=== PATIENT | male | born 1955 | race Caucasian/White ===

== ENCOUNTER 2016-08-31 12:47 | Inpatient (IN) | payer MEDICAID ==
[2016-08-31] MEDS ORDERED: ONDANSETRON DISINTEGRATING 4 MG TAB PO ONE (13:14)
[2016-08-31] MEDS ORDERED: ONDANSETRON 4 MG/2 ML VIAL ONE (13:19)
[2016-08-31] MEDS ORDERED: HYDROmorphONE/DILAUDID 1 MG/ML SYR IVP ONE (13:34)
[2016-08-31 13:38] LABS: % IMMATURE GRANULYOCYTES 0.3 % (0.0-1.1); ABSOLUTE IMMATURE GRANULOCYTES 0.04 10^3/uL (0.00-0.10); ADD DIFF? NO; ADD MORPH? NO; ADD SCAN? NO; ATYPICAL LYMPHOCYTE FLAG 0 (0-99); FRAGMENT RBC FLAG 0 (0-99); HEMATOCRIT 48.3 % (40.0-51.0); HEMOGLOBIN 17.7 g/dL (13.7-17.5); LEFT SHIFT FLG 0 (0-99); LIPEMIA HEMOLYSIS FLAG 90 (0-99); MEAN CELL HEMOGLOBIN CONCENTR. 36.6 g/dL (32.4-36.7); MEAN CELL VOLUME 89.9 fL (81.5-99.8); MEAN PLATELET VOLUME 9.7 fL (8.7-11.7); PLATELET CLUMPS FLAG 0 (0-99); PLATELET COUNT 256 10^3/uL (150-400); RED BLOOD CELL COUNT 5.37 10^6/uL (4.40-6.38); RED CELL DISTRIBUTION WIDTH 12.3 % (11.5-15.2)
[2016-08-31] MEDS ORDERED: HALOPERIDOL LACT 5 MG/ML INJ IVP ONE (13:40)
--- NOTE | 2016-08-31 13:40 | EDPHY ---
HPI/HX/ROS/PE/MDM Narrative: CHIEF COMPLAINT: Chronic abdominal pain, vomiting HPI: The patient is a 61 y/o male, with a history of diverticulitis and chronic abdominal pain, complaining of abdominal pain and vomiting onset around 7:00 this morning, 6.5 hours ago. He has been seen here several times in the last year for the same complaint. His last admission was in March 2016 and they were unable to determine the etiology of his pain. He was seen most recently in the ED on 07/13/16 for the same complaints. His symptoms today feel exactly the same. His pain is localized to his epigastrium. No fever, hematemesis, bloody stools. No anticoagulants. REVIEW OF SYSTEMS: Aside from elements discussed in the HPI, a comprehensive 10-point review of systems was reviewed and is negative. PMH: Diverticulitis, chronic abdominal pain, hepatitis, depression, hepatic hemangioma, suspected thigh lipoma, colon polyps, hypertension SOCIAL HISTORY: smokes marijuana Reviewed prior medical records including ED visit 07/13/16 for abdominal pain and admission 04/02/16 for abdominal pain. PHYSICAL EXAM: General:Patient is alert, in mild distress. ENT:Eyes are normal to inspection. ENT inspection normal. Neck: Normal inspection. Full range of motion. Respiratory:No respiratory distress. Breath sounds normal bilaterally. Hyperventilating. Cardiovascular: Regular rate and rhythm. Strong peripheral pulses. Normal cap refill. Abdomen:The abdomen has mild epigastric tenderness to palpation. There are no peritoneal signs. There are normal bowel sounds. Back: Normal to inspection. No tenderness to palpation. Skin: Normal color. No rash. Warm and dry. Extremities: Normal appearance. Full range of motion. Neuro: Oriented x3. Normal motor function. Normal sensory function. (Celso Zamora) ED Course: IV established. Labs drawn including CBC, CHEM, lipase. 1L IV NS, 4mg IV Zofran , 1mg IV Dilaudid, and 5mg IV Haldol administered. On re-evaluation at 3:00 p.m., the patient feels much better and he is asleep. I have signed the patient out to Dr. Ignacio pending re-evaluation and likely discharge home. The patient has had multiple CT scans of the abdomen for similar symptoms and I do not think this is indicated currently. (Celso Zmaora) Care assumed by me pending improvement in symptoms. 1814 Pt still not tolerating fluids and pain is returning. I have discussed with Dr. Saenz, Hospitalist. She will admit for further care and evaluation. ( Po Ignacio) - Data Points Laboratory Results: Laboratory Results 08/31/16 13:28 08/31/16 13:28 08/31/16 13:28 WBC 12.42 H 10^3/uL (3.80-9.50) RBC 5.37 10^6/uL (4.40-6.38) Hgb 17.7 H g/dL (13.7-17.5) Hct 48.3 % (40.0-51.0) MCV 89.9 fL (81.5-99.8) MCH 33.0 pg (27.9-34.1) MCHC 36.6 g/dL (32.4-36.7) RDW 12.3 % (11.5-15.2) Plt Count 256 10^3/uL (150-400) MPV 9.7 fL (8.7-11.7) Neut % (Auto) 89.9 H % (39.3-74.2) Lymph % (Auto) 4.4 L % (15.0-45.0) [place] % (Auto) 5.2 % (4.5-13.0) Eos % (Auto) 0.0 L % (0.6-7.6) Baso % (Auto) 0.2 L % (0.3-1.7) Nucleat RBC Rel Count 0.0 % (0.0-0.2) Absolute Neuts (auto) 11.15 H 10^3/uL (1.70-6.50) Absolute Lymphs (auto) 0.55 L 10^3/uL (1.00-3.00) Absolute Monos (auto) 0.65 10^3/uL (0.30-0.80) Absolute Eos (auto) 0.00 L 10^3/uL (0.03-0.40) Absolute Basos (auto) 0.03 10^3/uL (0.02-0.10) Absolute Nucleated RBC 0.00 10^3/uL (0-0.01) Immature Gran % 0.3 % (0.0-1.1) Immature Gran # 0.04 10^3/uL (0.00-0.10) Sodium 144 mEq/L (134-144) Potassium 3.4 L mEq/L (3.5-5.2) Chloride 105 mEq/L (97-110) Carbon Dioxide 18 L mEq/l (22-31) Anion Gap 21 mEq/L (8-16) BUN 13 mg/dL (7-23) Creatinine 1.0 mg/dL (0.7-1.3) Estimated GFR > 60 Glucose 159 H mg/dL (70-100) Calcium 9.5 mg/dL (8.5-10.4) Lipase 37.0 IU/L (23-300) Medications Given: Discontinued Medications Haloperidol Lactate (Haldol Injection) 5 mg IVP EDNOW ONE Stop: 08/31/16 13:41 Last Admin: 08/31/16 14:00 Dose: 5 mg Hydromorphone HCl (Dilaudid) 1 mg IVP EDNOW ONE Stop: 08/31/16 13:35 Last Admin: 08/31/16 13:42 Dose: 1 mg Sodium Chloride (Ns) 1,000 mls @ 0 mls/hr IV ONCE ONE PRN Reason: Wide Open Stop: 08/31/16 13:44 Last Admin: 08/31/16 13:54 Dose: 1,000 mls Sodium Chloride (Ns) 1,000 mls @ 0 mls/hr IV ONCE ONE PRN Reason: Wide Open Stop: 08/31/16 14:56 Last Admin: 08/31/16 14:55 Dose: 1,000 mls Ondansetron HCl (Zofran Odt) 4 mg PO EDNOW ONE Stop: 08/31/16 13:15 Last Admin: 08/31/16 13:43 Dose: Not Given Ondansetron HCl (Zofran) 4 mg IVP EDNOW ONE Stop: 08/31/16 13:43 Last Admin: 08/31/16 13:42 Dose: 4 mg General Time Seen by Provider: 08/31/16 13:22 Initial Vital Signs: Initial Vital Signs Temperature (C) 36.6 C 08/31/16 12:48 Heart Rate 86 08/31/16 12:48 Respiratory Rate 26 H 08/31/16 12:48 Blood Pressure 169/114 H 08/31/16 12:48 O2 Sat (%) 99 08/31/16 12:48 O2 Delivery Mode Room Air O2 (L/minute) 2 Allergies/Adverse Reactions: Penicillins Allergy (Verified 07/13/16 09:07) Rash Home Medications: Medication Instructions Recorded FLUoxetine [Prozac 10 MG (*)] 30 mg PO DAILY #90 cap 04/08/16 Departure - Departure Disposition: [facility] Inpatient Acute Clinical Impression: Chronic abdominal pain Cyclic vomiting syndrome Qualifiers: Qualifier Code: (G43.A0) Cyclical vomiting, not intractable Condition: Fair Report Scribed for: Celso Zamora Report Scribed by: Monique Griffin Date of Report: 08/31/16 Time of Report: 13:24 Physician Review and Approval Statement: Portions of this note were transcribed by an ED scribe. I personally performed the history, physical exam, and medical decision making; and confirm the accuracy of the information in the transcribed note.
[2016-08-31] MEDS ORDERED: ONDANSETRON 4 MG/2 ML VIAL IVP ONE (13:42)
[2016-08-31] MEDS ORDERED: NS 1,000 ML IV ONE ×3 (13:43→23:28)
[2016-08-31 13:54] LABS: ANION GAP 21 mEq/L (8-16); CALCIUM 9.5 mg/dL (8.5-10.4); CARBON DIOXIDE 18 mEq/l (22-31); CHLORIDE 105 mEq/L (97-110); GLOMERULAR FILTRATION RATE > 60; GLUCOSE 159 mg/dL (70-100); POTASSIUM 3.4 mEq/L (3.5-5.2); SODIUM 144 mEq/L (134-144)
[2016-08-31] MEDS ORDERED: ACETAMINOPHEN 325 MG TAB PO PRN (19:26)
[2016-08-31] MEDS ORDERED: HYDROmorphONE/DILAUDID 1 MG/ML SYR IVP PRN (19:26)
[2016-08-31] MEDS ORDERED: PROMETHAZINE HCL 25 MG/ML INJ IVP PRN (19:26)
[2016-08-31] MEDS ORDERED: PROTOCOL POTASSIUM 1 DOSE MISC PRN (19:27)
[2016-08-31] MEDS ORDERED: IOPAMIDOL (ISOVUE-300) 100 ML BTL IV ONE (19:33)
--- NOTE | 2016-08-31 20:08 | GHP ---
[f rep st] HISTORY AND PHYSICAL DATE OF ADMISSION: 08/31/2016 CHIEF COMPLAINT: Abdominal pain. HISTORY OF PRESENT ILLNESS: The patient is a 61-year-old male who has had chronic abdominal pain for quite some time. The last time he was seen in the emergency room, his CT scan showed some mild dive rticulitis and he was discharged with antibiotics. He has also had multiple other ER visits and admi ssions where his abdominal CT scan was unremarkable. He now re-presents to the hospital with worseni ng abdominal pain. He has 2 separate pains, 1 of them is in his epigastric region, and the other 1 i s in the left lower quadrant. He continuously called both of these pains his "diverticulitis pains." He says he has had this pain for about a year. It got much worse today. It does not radiate. He has no diarrhea or constipation. He has had some weight loss over the years. Each episode of pain c omes and goes over a period of seconds in waves. He also complains of changes in his urination. He is losing control of his urine and having incontinence issues. He has a very dramatic urge to urinat e and sometimes does not make it in time. He denies any dysuria. He feels like his bladder issues a nd his diverticulitis issues are all connected. He has been so distressed over this worsening abdomi nal pain that he quit smoking marijuana about 3 weeks ago, but prior to that he was a daily user. He had an EGD and colonoscopy done as an inpatient here in March 2016, and it showed only colon polyps which were biopsied. PAST MEDICAL HISTORY: 1. Hypertension. 2. Diverticulitis. 3. Chronic abdominal pain. 4. Depression. PAST SURGICAL HISTORY: Knee surgery. MEDICATIONS: Please see computer record for full detailed list. ALLERGIES: Penicillin. SOCIAL HISTORY: No smoking. No alcohol. Previous daily marijuana user, now off marijuana for the l ast 2-3 weeks. He is homeless. Lives out of his car. REVIEW OF SYSTEMS: Complete review of systems obtained. Review of systems is negative constitutiona l, HEENT, GI, pulmonary, cardiovascular, , hematology, skin, musculoskeletal, endocrine, and psych, except for positives and pertinent negatives which are listed as under HPI. FAMILY HISTORY: Reviewed and noncontributory to presenting complaint. PHYSICAL EXAMINATION: GENERAL: Well-developed, well-nourished male, in no acute distress. VITAL SI GNS: Temperature is 36.7, pulse 73, blood pressure 89/62, satting 94% on room air. EYES: Normal co njunctivae. Pupils equal, react to light. ENT: Normal ears and nose. Hearing intact. Normal teet h. Oropharynx moist. NECK: Trachea midline. No thyromegaly. CHEST: Normal effort. LUNGS: Norma r to auscultation bilaterally. CARDIOVASCULAR: Regular rhythm. No murmur. No lower extremity tuyet a. ABDOMEN: Soft. Mild left lower quadrant tenderness to palpation. No hepatosplenomegaly. SKIN: Warm, dry, intact, without rash. MUSCULOSKELETAL: No cyanosis or clubbing. Strength 5/5 upper an d lower extremities. NEUROLOGIC: Cranial nerves intact. Normal sensation to light touch. PSYCHIATR IC: Alert and oriented x3. Normal affect. Normal judgment and insight. Normal memory. LABORATORY DATA: White count 12.42, hematocrit 48.3, platelets 256. Sodium 144, potassium 3.4, chlo ride 105, bicarb 18, BUN 13, creatinine 1.0, glucose 159. Lipase is 37. MEDICAL RECORDS REVIEW: I summarized findings under HPI. Multiple admissions and ER visits for abdo li pain. Most recently, however, in July he was diagnosed with diverticulitis and started on antibiotics. ASSESSMENT/PLAN: 1. Yqkns-dd-uwoytee abdominal pain. He has been observed in the emergency room for over 6 hours and has failed to improve, so is now being admitted for persistence of symptoms. Although he has multip le negative CT scans in the past, his most recent 1 in July did show evidence of diverticulitis w hich was treated with antibiotics. Despite this antibiotic treatment, his abdominal pain continues t o worsen. He also has leukocytosis. I do feel that we are obliged to check CT scan yet again to kirill e sure there is no further complication of this episode of diverticulitis. He is requiring IV Dilaud id for pain control, this will be continued. 2. Urinary urge incontinence and urinary difficulties. This sounds like he may have developed some benign prostatic hypertrophy. We will check bladder scan for urinary retention and a urinalysis. We will start him on Flomax. ADMISSION STATUS: We will admit to observation, as he might be able go home tomorrow if workup is ne gative. DVT PROPHYLAXIS: He is [id number] risk. We will place him on subcu Lovenox. CODE STATUS: Full. /[id number]/MODL
--- NOTE | 2016-08-31 20:44 | CT ---
CT Scan of the Abdomen and Pelvis (With Contrast) August 31, 2016 at 1948 Hours History: Epigastric and left lower quadrant pain, previous history of diverticulitis. Comparison: CTs from February 2012 and July 2016. Technique: Axial computed tomographic images of the abdomen and pelvis were obtained with the unevent ful intravenous administration of 90 mL Isovue-300 contrast. No oral or rectal contrast which limits the study. Dose reduction techniques were utilized. CT Abdomen Findings Lung bases: Linear atelectasis in the right lower lobe. Liver: Multiple probable hepatic hemangiomas again noted. Biliary system: No obstruction. Spleen: Normal. Pancreas: Normal. Adrenals: Normal. Kidneys: No obstruction or solid masses. 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 Abdominal aorta: Moderate atherosclerotic calcification of the abdominal aorta without aneurysm. No bowel obstruction, ascites, or significant retroperitoneal lymphadenopathy. CT Pelvis Findings: Diffuse diverticulosis coli without evidence of definite diverticulitis. Previous inflammatory changes of the descending colon are no longer visualized. No focal fluid collection or pneumoperitoneum, although limited due to lack of oral contrast. Anterolateral to the right hip, there is a fat density mass measuring 6.6 x 4.4 cm, which in 2012 valentino sured 5.3 x 3.2 cm, image 73 of series 3 with few septations within it. Degenerative disk disease in the lumbar spine, especially at L3-L4 with disk space narrowing and osteophytes. Impressions: 1. Diverticulosis coli without definite evidence of diverticulitis, bowel obstruction, pneumoperitone um, or drainable abscess. 2. Probable hepatic hemangiomata without ascites or splenomegaly. 3. Atherosclerotic aorta without aneurysm. 4. Malrotated right kidney. No urinary tract obstruction. 5. Anterolateral to the right hip in the subcutaneous fat, there is a mixed fat density lesion which has increased in size slowly since 2011, currently measuring 6.6 x 4.4 cm, which may represent a lipo ma or low-grade liposarcoma. Recommend surgical consult for excisional biopsy. Findings and recommendations discussed with Dr. Brandy Saenz at 2015 hours today.
[2016-08-31 20:46] LABS: POTASSIUM 4.2 mEq/L (3.5-5.2)
[2016-08-31] MEDS: oxyCODONE IR 5 MG TAB PO PRN (21:01)
[2016-08-31] MEDS: NS 1,000 ML IV SCH (21:01)
[2016-08-31] MEDS: ONDANSETRON 4 MG/2 ML VIAL IVP PRN (21:01)
[2016-08-31] MEDS: PANTOPRAZOLE SODIUM 40 MG in NS 100 ML IV SCH (21:12)
[2016-08-31 23:44] LABS: COLOR YELLOW; LEUKOCYTE ESTERASE,URINE NEGATIVE (NEGATIVE); NITRITE,URINE NEGATIVE (NEGATIVE)
[2016-09-01 04:57] LABS: ADD DIFF? NO; ADD MORPH? NO; ADD SCAN? NO; ATYPICAL LYMPHOCYTE FLAG 0 (0-99); FRAGMENT RBC FLAG 0 (0-99); HEMATOCRIT 36.2 % (40.0-51.0); HEMOGLOBIN 12.6 g/dL (13.7-17.5); LEFT SHIFT FLG 10 (0-99); LIPEMIA HEMOLYSIS FLAG 90 (0-99); MEAN CELL HEMOGLOBIN 33.2 pg (27.9-34.1); MEAN CELL HEMOGLOBIN CONCENTR. 34.8 g/dL (32.4-36.7); MEAN CELL VOLUME 95.5 fL (81.5-99.8); MEAN PLATELET VOLUME 9.7 fL (8.7-11.7); PLATELET CLUMPS FLAG 10 (0-99); PLATELET COUNT 165 10^3/uL (150-400); RED BLOOD CELL COUNT 3.79 10^6/uL (4.40-6.38); RED CELL DISTRIBUTION WIDTH 13.4 % (11.5-15.2)
[2016-09-01 05:16] LABS: ALANINE AMINOTRANSFERASE 25 IU/L (21-72); ALBUMIN 2.9 g/dL (3.5-5.0); ALKALINE PHOSPHATASE 54 IU/L (38-126); ANION GAP 5 mEq/L (8-16); ASPARTATE AMINOTRANSFERASE 14 IU/L (17-59); BILIRUBIN,TOTAL 0.8 mg/dL (0.1-1.4); BILIRUBIN-CONJUGATED 0.6 mg/dL (0.0-0.5); BILIRUBIN-UNCONJUGATED 0.2 mg/dL (0.0-1.1); CALCIUM 7.6 mg/dL (8.5-10.4); CARBON DIOXIDE 22 mEq/l (22-31); CHLORIDE 113 mEq/L (97-110); CREATININE 0.9 mg/dL (0.7-1.3); GLOMERULAR FILTRATION RATE > 60; GLUCOSE 91 mg/dL (70-100); POTASSIUM 3.8 mEq/L (3.5-5.2); SODIUM 140 mEq/L (134-144); TOTAL PROTEIN 5.2 g/dL (6.3-8.2)
[2016-09-01] MEDS: PANTOPRAZOLE SODIUM 40 MG in NS 100 ML IV SCH (08:47)
[2016-09-01] MEDS: TAMSULOSIN HCL 0.4 MG CAP PO SCH (08:48)
[2016-09-01] MEDS: ENOXAPARIN 40 MG/0.4 ML SYR SC SCH (08:48)
[2016-09-01] MEDS: NS 1,000 ML IV SCH ×2 (08:57→18:56)
[2016-09-01] MEDS ORDERED: ENOXAPARIN 40 MG/0.4 ML SYR SC SCH (09:00)
--- NOTE | 2016-09-01 09:59 | SOAPPROG ---
[facility] Progress Note Assessment/Plan: Assessment: 61yo male admitted for ab pain, also with right hip mass of 2 years reports ab pain improved, tolerating regular diet PE Right hip mass apprx 6x8cm, soft movable, nontender to palpation. Plan: long discussion with pt, surgery recommends removal of right hip mass, went over expected recovery, risks/benefits etc pt unsure what he would like to do. Also offered that he can follow-up in office and have done at later date although recommend sooner rather than later, within 60 days. surgery could possibly be done Thursday, likely . if pt decides not to do during this admission then ok to d/c from surgical perspective with outpt f/u 09/01/16 09:56 Objective: Vital Signs Temp Pulse Resp BP Pulse Ox 37.0 C 64 16 94/59 L 97 09/01/16 08:00 09/01/16 08:00 09/01/16 08:00 09/01/16 08:00 09/01/16 08:00 Laboratory Results 09/01/16 04:37 09/01/16 04:37 08/31/16 09/01/16 09/02/16 05:59 05:59 05:59 Intake Total 3570 282 Output Total 300 150 Balance 3270 132 ICD10 Worksheet Patient Problems: Problems Problem Status Diagnosed Chronic abdominal pain Acute Cyclic vomiting syndrome Acute Abdominal pain Acute Dehydration Acute Nausea & vomiting Acute Sigmoid diverticulitis Acute
[2016-09-01] MEDS: ONDANSETRON 4 MG/2 ML VIAL IVP PRN (11:12)
[2016-09-01] MEDS: oxyCODONE IR 5 MG TAB PO PRN (11:13)
[2016-09-01] MEDS ORDERED: POTASSIUM CL 10 MEQ TAB PO ONE ×3 (13:34→20:27)
--- NOTE | 2016-09-01 16:05 | HOSPPROG ---
Hospitalist Progress Note Assessment/Plan: 61-year-old male presents emergency room complaints abdominal pain. This is my 1st encounter with the patient, chart reviewed. # mid epigastric abdominal pain Etiology unclear CT scan negative Labs within normal limits Ultrasound ordered Patient made NPO Continue supportive management # urinary urgency Chronic problem for the patient # right hip mixed fat density per CT scan Appreciate consult from surgery Patient considering removal # hypotension Patient asymptomatic Continue fluids # leukocytosis Acute response improved # disposition Patient will be transitioned to inpatient status He requires further evaluation in the hospital setting given his acute abdominal pain He is unable to tolerate a regular diet this time Ultrasound ordered Continue further workup during this hospital course Consider GI consult Subjective: Still having mid epigastric pain. No other specific issues. No other pain identified. Objective: Vital Signs Temp Pulse Resp BP Pulse Ox 37.1 C 63 14 89/52 L 97 09/01/16 12:00 09/01/16 12:00 09/01/16 12:00 09/01/16 12:00 09/01/16 12:00 Laboratory Results 09/01/16 04:37 09/01/16 04:37 08/31/16 09/01/16 09/02/16 05:59 05:59 05:59 Intake Total 3570 282 Output Total 300 150 Balance 3270 132 - Physical Exam Constitutional: no apparent distress, appears nourished, uncomfortable Eyes: PERRL, anicteric sclera, EOMI Ears, Nose, Mouth, Throat: moist mucous membranes, hearing normal, ears appear normal Cardiovascular: regular rate and rhythym, No JVD, No edema Respiratory: no respiratory distress, no rales or rhonchi, reduced air movement Gastrointestinal: tenderness, No ascites, No guarding Skin: warm, normal color, No erythema Musculoskeletal: normal joint ROM, no joint effusions, generalized weakness Neurologic: AAOx3 Psychiatric: interacting appropriately, not encephalopathic, thought process linear, anxious ICD10 Worksheet Patient Problems: Problems Problem Status Diagnosed Chronic abdominal pain Acute Cyclic vomiting syndrome Acute Abdominal pain Acute Dehydration Acute Nausea & vomiting Acute Sigmoid diverticulitis Acute
--- NOTE | 2016-09-01 17:18 | US ---
Limited abdominal ultrasound INDICATION: Abdominal pain. History of diverticulitis. Probable multiple hemangiomas in the liver. COMPARISON: CT scan of the abdomen and pelvis of August 31, 2016. TECHNIQUE: Right upper quadrant ultrasound was performed. FINDINGS: The abdominal aorta is normal at 2 cm in the mid section, 1.6 cm distally. It is without si gnificant atherosclerosis. Pancreas is normal without peripancreatic fluid. Echotexture is normal. The liver measures 16.2 cm. At the upper dome of the right hepatic lobe, an echogenic lesion of 2 x 1 .6 x 1.5 cm has imaging characteristics consistent with a hemangioma by ultrasound criteria. In the m id right lobe, a smaller lesion of 1.3 x 1.2 x 1.2 cm also looks like a hemangioma. There are 2 small er cysts in the left lobe, the largest at 1 x 1 x 0.6 cm. This is overall anechoic without color Dopp ler flow. No evidence for hemangiomas in the left hepatic lobe. Liver contour is normal. Portal vein is patent. Gallbladder is well visualized, normal, without stone s or sludge. Gallbladder wall measures 2 mm. Common duct measures 7 mm. Right kidney measures 11.7 x 4.8 x 4.8 cm. Cortex measures 1.3 cm. No hydronephrosis. No perinephric fluid collection. IMPRESSION: 1. Liver cysts and hemangiomas in the left and right hepatic lobes respectively. 2. Otherwise normal right upper quadrant ultrasound.
[2016-09-01 20:13] LABS: POTASSIUM 3.7 mEq/L (3.5-5.2)
[2016-09-02] MEDS: NS 1,000 ML IV SCH ×2 (04:51→23:13)
[2016-09-02 06:11] LABS: POTASSIUM 3.8 mEq/L (3.5-5.2)
[2016-09-02] MEDS ORDERED: POTASSIUM CL 10 MEQ TAB PO ONE ×3 (06:19→23:02)
[2016-09-02 06:34] LABS: CORTISOL-AM 18.5 ug/dL (4.5-22.7)
[2016-09-02] MEDS: ENOXAPARIN 40 MG/0.4 ML SYR SC SCH (08:24)
[2016-09-02] MEDS: PANTOPRAZOLE SODIUM 40 MG in NS 100 ML IV SCH (08:24)
[2016-09-02] MEDS: TAMSULOSIN HCL 0.4 MG CAP PO SCH (08:24)
--- NOTE | 2016-09-02 13:16 | SOAPPROG ---
SOAP Progress Note Assessment/Plan: Assessment/Plan: 61 Y M admitted c abdominal pain. R anterior thigh mass. To OR tomorrow for resection of R thigh mass. Risks and options discussed c the patient and he requests to proceed. Consent in chart. Hold chemical ppx. Ppx abx ordered. NPO p midnight. 09/02/16 13:13 Subjective: wants to remove this mass. getting larger. doesn't hurt much. Objective: Vital Signs Temp Pulse Resp BP Pulse Ox 36.8 C 76 16 141/94 H 94 09/02/16 11:25 09/02/16 11:25 09/02/16 11:25 09/02/16 11:25 09/02/16 11:25 Laboratory Results 09/02/16 04:36 09/01/16 09/02/16 09/03/16 05:59 05:59 05:59 Intake Total 3398 225 Output Total 1810 300 Balance 1588 -75 alert, nad resting comfortably no wob R thigh soft ovoid/rounded mass ~15x18 cm, does not seem to involve muscle ICD10 Worksheet Patient Problems: Problems Problem Status Diagnosed Chronic abdominal pain Acute Cyclic vomiting syndrome Acute Abdominal pain Acute Dehydration Acute Nausea & vomiting Acute Sigmoid diverticulitis Acute
--- NOTE | 2016-09-02 14:50 | HOSPPROG ---
Hospitalist Progress Note Assessment/Plan: 61-year-old male presents emergency room complaints abdominal pain. # mid epigastric abdominal pain Etiology unclear CT scan negative Labs within normal limits Ultrasound negative Patient refusing EGD Patient made NPO after midnight Clear liquid diet today Continue supportive management # urinary urgency Chronic problem for the patient # right hip mixed fat density per CT scan Appreciate consult from surgery To OR in the a.m. # hypotension Patient asymptomatic Continue fluids Resolved # leukocytosis Acute response improved # disposition Patient will be transitioned to inpatient status He requires further evaluation in the hospital setting given his acute abdominal pain and surgical intervention Tolerating clear liquid Continue further workup during this hospital course Consider GI consult Subjective: Still having mild abdominal pain. Does not want EGD at this time. Once surgical resection of his mass on his thigh. Objective: Vital Signs Temp Pulse Resp BP Pulse Ox 36.8 C 76 16 141/94 H 94 09/02/16 11:25 09/02/16 11:25 09/02/16 11:25 09/02/16 11:25 09/02/16 11:25 Laboratory Results 09/02/16 04:36 09/01/16 09/02/16 09/03/16 05:59 05:59 05:59 Intake Total 3398 625 Output Total 1810 1900 Balance 1588 -1275 - Physical Exam Constitutional: no apparent distress, appears nourished, chronically ill appearing Eyes: PERRL, anicteric sclera, EOMI Ears, Nose, Mouth, Throat: moist mucous membranes, hearing normal, ears appear normal Cardiovascular: No JVD, No edema Respiratory: no respiratory distress, reduced air movement Gastrointestinal: No tenderness, No ascites Skin: warm, normal color Musculoskeletal: no joint effusions, generalized weakness Neurologic: AAOx3 Psychiatric: not anxious, not encephalopathic, poor insight, poor judgement ICD10 Worksheet Patient Problems: Problems Problem Status Diagnosed Chronic abdominal pain Acute Cyclic vomiting syndrome Acute Abdominal pain Acute Dehydration Acute Nausea & vomiting Acute Sigmoid diverticulitis Acute
[2016-09-02 18:27] LABS: POTASSIUM 3.3 mEq/L (3.5-5.2)
[2016-09-03 05:07] LABS: POTASSIUM 3.7 mEq/L (3.5-5.2)
[2016-09-03] MEDS: NS 1,000 ML IV SCH (05:10)
[2016-09-03] MEDS ORDERED: ERTAPENEM 1 GM in NS 100 ML IV ONE (06:00)
[2016-09-03] MEDS: PANTOPRAZOLE SODIUM 40 MG in NS 100 ML IV SCH (09:23)
[2016-09-03] MEDS: TAMSULOSIN HCL 0.4 MG CAP PO SCH ×2 (09:31→16:40)
--- NOTE | 2016-09-03 09:43 | SOAPPROG ---
SOAP Progress Note Assessment/Plan: Assessment: 61yo male admitted for ab pain, also with right hip mass of 2 years reports ab pain improved, tolerating regular diet PE Right hip mass apprx 6x8cm, soft movable, nontender to palpation. Plan: long discussion with pt, surgery recommends removal of right hip mass, went over expected recovery, risks/benefits etc pt unsure what he would like to do. Also offered that he can follow-up in office and have done at later date although recommend sooner rather than later, within 60 days. surgery could possibly be done Thursday, likely . if pt decides not to do during this admission then ok to d/c from surgical perspective with outpt f/u 09/01/16 09:56 09/03/16 09:42 discussed surgery with patient, explained it could be extensive, pt signed consent. discussed case with Sushma Arango of medicine, ok to go home late today of surgery not extensive, will contact her for d/c. ok to eat regular diet post-op per medicine. Objective: Vital Signs Temp Pulse Resp BP Pulse Ox 36.9 C 72 17 148/100 H 94 09/03/16 08:12 09/03/16 08:12 09/03/16 08:12 09/03/16 08:12 09/03/16 08:12 Laboratory Results 09/03/16 04:40 09/02/16 09/03/16 09/04/16 05:59 05:59 05:59 Intake Total 3398 3025 Output Total 1810 3450 200 Balance 1588 -425 -200 ICD10 Worksheet Patient Problems: Problems Problem Status Diagnosed Chronic abdominal pain Acute Cyclic vomiting syndrome Acute Abdominal pain Acute Dehydration Acute Nausea & vomiting Acute Sigmoid diverticulitis Acute
[2016-09-03] MEDS ORDERED: BUPIVACAINE 0.5% 30 ML SDV ONE (11:50)
[2016-09-03] MEDS ORDERED: MIDAZOLAM 2 MG/2 ML VIAL ONE (12:25)
[2016-09-03] MEDS ORDERED: PROPOFOL 200 MG/20 ML VIAL ONE (12:35)
[2016-09-03] MEDS ORDERED: LIDOCAINE 2% 5 ML SDV ONE (12:36)
[2016-09-03] MEDS ORDERED: HYDROmorphONE/DILAUDID 2 MG/ML SYR ONE (12:36)
[2016-09-03] MEDS ORDERED: ROCURONIUM 50 MG/5 ML VIAL ONE (12:39)
[2016-09-03] MEDS ORDERED: THROMBIN (RECOMBINANT) 20,000 UNIT SPRAY TP ONE (13:36)
[2016-09-03] MEDS ORDERED: epHEDrine SULFATE 10 MG/ML SYR ONE (13:51)
[2016-09-03] MEDS ORDERED: KETOROLAC 30 MG/1 ML SDV ONE (13:53)
[2016-09-03] MEDS ORDERED: SUGAMMADEX SODIUM 200 MG/2 ML VIAL IVP ONE (13:53)
[2016-09-03] MEDS ORDERED: PHENYLEPHRINE HCL 100 MCG/ML SYR ONE (13:54)
[2016-09-03] MEDS ORDERED: DEXAMETHASONE 4 MG/ML VIAL ONE ×2 (13:54)
[2016-09-03] MEDS ORDERED: ONDANSETRON 4 MG/2 ML VIAL ONE (13:55)
--- NOTE | 2016-09-03 14:09 | POSTOPPROG ---
Post Op Note Date of Operation: 09/03/16 Surgeon: José Miguel Wagner Fireworks Inspector: alexys galvan Anesthesiologist: nory Anesthesia: GET(General Endotracheal) Pre-op Diagnosis: right hip mass Post-op Diagnosis: same Indication: right hip mass Procedure: right hip mass excision Findings: right hip mass, under muscle likley TFL Inf/Abcess present in the surg proc area at time of surgery?: No Depth: Deep Incisional (Fascial) EBL: 50-100 Drains: Carmelo Pereyra (2 masses from right hip mass)
[2016-09-03] MEDS ORDERED: fentaNYL 100 MCG/2 ML INJ ONE (14:15)
[2016-09-03] MEDS ORDERED: HYDROmorphONE/DILAUDID 1 MG/ML SYR ONE (14:41)
--- NOTE | 2016-09-03 14:54 | HOSPPROG ---
Hospitalist Progress Note Assessment/Plan: 61-year-old male presents emergency room complaints abdominal pain. Reviewed with Prashant Penn of surgery. # mid epigastric abdominal pain Etiology unclear CT scan negative Labs within normal limits Ultrasound negative Patient refusing EGD Advanced diet Patient states abdominal pain is resolved and feels fine today # urinary urgency Chronic problem for the patient # right hip mixed fat density per CT scan Appreciate consult from surgery To OR today Postoperative care needs to be determined # hypotension Patient asymptomatic Continue fluids Resolved # leukocytosis Acute response improved # disposition To OR today Discharge plan on clear pending surgical intervention General regular diet plan unclear reviewed with protective services case worker Patient may consider fdc facility rehabilitation Subjective: Abdomen pain resolved. Would like to eat regular food. Awaiting surgical intervention. Objective: Vital Signs Temp Pulse Resp BP Pulse Ox 36.9 C 72 17 150/107 H 94 09/03/16 08:12 09/03/16 08:12 09/03/16 08:12 09/03/16 10:26 09/03/16 08:12 Laboratory Results 09/03/16 04:40 09/02/16 09/03/16 09/04/16 05:59 05:59 05:59 Intake Total 3398 3025 Output Total 1810 3450 200 Balance 1588 -425 -200 - Physical Exam Constitutional: no apparent distress, appears nourished, not in pain Eyes: PERRL, anicteric sclera, EOMI Ears, Nose, Mouth, Throat: moist mucous membranes, hearing normal, ears appear normal Cardiovascular: regular rate and rhythym, No JVD, No edema Respiratory: no respiratory distress, no rales or rhonchi, reduced air movement Gastrointestinal: normoactive bowel sounds, No tenderness, No ascites Skin: warm, normal color, No erythema Musculoskeletal: full muscle strength, normal joint ROM, no joint effusions Neurologic: AAOx3 Psychiatric: not anxious, not encephalopathic, thought process linear, agitated ICD10 Worksheet Patient Problems: Problems Problem Status Diagnosed Chronic abdominal pain Acute Cyclic vomiting syndrome Acute Abdominal pain Acute Dehydration Acute Nausea & vomiting Acute Sigmoid diverticulitis Acute
[2016-09-03] MEDS ORDERED: POTASSIUM CL 10 MEQ TAB PO ONE (15:48)
--- NOTE | 2016-09-03 16:09 | SOAPPROG ---
SOAP Progress Note Assessment/Plan: Assessment: 61yo male admitted for ab pain, also with right hip mass of 2 years reports ab pain improved, tolerating regular diet PE Right hip mass apprx 6x8cm, soft movable, nontender to palpation. Plan: long discussion with pt, surgery recommends removal of right hip mass, went over expected recovery, risks/benefits etc pt unsure what he would like to do. Also offered that he can follow-up in office and have done at later date although recommend sooner rather than later, within 60 days. surgery could possibly be done Thursday, likely . if pt decides not to do during this admission then ok to d/c from surgical perspective with outpt f/u 09/01/16 09:56 09/03/16 09:42 discussed surgery with patient, explained it could be extensive, pt signed consent. discussed case with Sushma Arango of medicine, ok to go home late today of surgery not extensive, will contact her for d/c. ok to eat regular diet post-op per medicine. 09/03/16 16:09 surgery somewhat extensive, keep pt overnight. Objective: Vital Signs Temp Pulse Resp BP Pulse Ox 36.5 C 95 14 121/85 H 93 09/03/16 15:36 09/03/16 15:36 09/03/16 15:36 09/03/16 15:36 09/03/16 15:36 Laboratory Results 09/03/16 04:40 09/02/16 09/03/16 09/04/16 05:59 05:59 05:59 Intake Total 3395 3025 1560 Output Total 1810 3450 260 Balance 1588 -425 1300 ICD10 Worksheet Patient Problems: Problems Problem Status Diagnosed Chronic abdominal pain Acute Cyclic vomiting syndrome Acute Abdominal pain Acute Dehydration Acute Nausea & vomiting Acute Sigmoid diverticulitis Acute
[2016-09-03] MEDS: HYDROCODONE/APAP 5/325 TAB PO PRN ×2 (16:40→23:41)
[2016-09-03 19:31] LABS: POTASSIUM 4.1 mEq/L (3.5-5.2)
[2016-09-03] MEDS: KETOROLAC 30 MG/1 ML SDV IVP PRN (20:47)
[2016-09-04] MEDS: HYDROCODONE/APAP 5/325 TAB PO PRN ×2 (05:05→20:14)
[2016-09-04 05:38] LABS: POTASSIUM 4.2 mEq/L (3.5-5.2)
--- NOTE | 2016-09-04 08:44 | SOAPPROG ---
SOAP Progress Note Assessment/Plan: Assessment: 61yo male admitted for ab pain, also with right hip mass s/p excision 09/03/16 Dr Wagner, path pending wants to stay today although pt reports "pain not that bad" and has not tried to ambulate yet. Drain 120 out PE awake alert comfortable Right leg bandage dry, drain with serosag drainage, thigh soft to palpation, no difficulty moving right leg and normal sensation to touch over thigh. Plan encouraged ambulation explained to pt f/u and fact he could leave today if ambulates well. if still here tomorrow will try to remove drain before D/C as I am worried pt could be lost to F/U 09/04/16 08:35 09/04/16 08:45 Objective: Vital Signs Temp Pulse Resp BP Pulse Ox 36.6 C 56 L 16 96/62 L 96 09/04/16 08:00 09/04/16 08:00 09/04/16 08:00 09/04/16 08:00 09/04/16 08:00 Laboratory Results 09/04/16 04:37 09/03/16 09/04/16 09/05/16 05:59 05:59 05:59 Intake Total 3025 2310 Output Total 3450 600 Balance -425 1710 ICD10 Worksheet Patient Problems: Problems Problem Status Diagnosed Chronic abdominal pain Acute Cyclic vomiting syndrome Acute Abdominal pain Acute Dehydration Acute Nausea & vomiting Acute Sigmoid diverticulitis Acute
[2016-09-04] MEDS: oxyCODONE IR 5 MG TAB PO PRN ×4 (08:45→21:28)
--- NOTE | 2016-09-04 08:45 | HOSPPROG ---
Hospitalist Progress Note Assessment/Plan: patient is a 61-year-old male with chronic abdominal pain. On his last emergency room visit his CT scan showed some mild diverticulitis and he was discharged with antibiotics. Today is my 1st encounter with the patient. Chart reviewed. # mid epigastric abdominal pain * CT scan shows no clear etiology * suspect this may be stress related * will do a trial of Reglan. Patient also feels constipated will add bowel protocol. * Ultrasound negative * on PPI * trial of k pad * He was able to eat oatmeal this morning # urinary urgency * Chronic problem for the patient # right hip mixed fat density per CT scan * Status post right hip mass excision # hypotension * blood pressure is 88/57 this morning * Patient appears clinically dry. Will give him a fluid bolus and continue IV fluids # leukocytosis * Acute response # homelessness * patient has been living in his car /Van * he has a daughter in the [place] area who would be okay for him to live with her * in addition he has a friend in the local area who he might be able to stay with * case management getting involved # disposition * has a RUSSELL drain in his right thigh area. Hopefully if his blood pressure improves he can be discharged in the next day or so. Subjective: Celso is feeling tired. Continues to have vague abdominal pain. Objective: Vital Signs Temp Pulse Resp BP Pulse Ox 36.6 C 56 L 16 96/62 L 96 09/04/16 08:00 09/04/16 08:00 09/04/16 08:00 09/04/16 08:00 09/04/16 08:00 Laboratory Results 09/04/16 04:37 09/03/16 09/04/16 09/05/16 05:59 05:59 05:59 Intake Total 3025 2310 Output Total 3450 600 Balance -425 1710 - Physical Exam Constitutional: uncomfortable Eyes: PERRL Ears, Nose, Mouth, Throat: hearing normal Cardiovascular: regular rate and rhythym Respiratory: no respiratory distress Gastrointestinal: normoactive bowel sounds, tenderness ( In the epigastric area ) Skin: warm Neurologic: AAOx3 Psychiatric: interacting appropriately, flat affect ICD10 Worksheet Patient Problems: Problems Problem Status Diagnosed Chronic abdominal pain Acute Cyclic vomiting syndrome Acute Abdominal pain Acute Dehydration Acute Nausea & vomiting Acute Sigmoid diverticulitis Acute
[2016-09-04] MEDS: TAMSULOSIN HCL 0.4 MG CAP PO SCH (08:46)
[2016-09-04] MEDS: ONDANSETRON DISINTEGRATING 4 MG TAB PO PRN (08:47)
[2016-09-04] MEDS: PANTOPRAZOLE SODIUM 40 MG in NS 100 ML IV SCH (08:48)
[2016-09-04] MEDS ORDERED: LACTULOSE 20 GM/30 ML UDCUP PO PRN (09:02)
[2016-09-04] MEDS ORDERED: MAGNESIUM HYDROXIDE 30 ML UDCUP PO PRN (09:02)
[2016-09-04] MEDS ORDERED: BISACODYL 10 MG SUPP PR PRN (09:02)
[2016-09-04] MEDS: KETOROLAC 30 MG/1 ML SDV IVP PRN ×2 (09:49→15:49)
[2016-09-04] MEDS: POLYETHYLENE GLYCOL 3350 17 GM PKT PO SCH (09:52)
--- NOTE | 2016-09-04 10:36 | SOAPPROG ---
SOAP Progress Note Assessment/Plan: Assessment: DOING OK/ COMFORTABLE/ AFEBRILE/ WOUND OK/ MINIMAL DRAINAGE Plan: PT CONSULT 09/04/16 10:33 Objective: Vital Signs Temp Pulse Resp BP Pulse Ox 36.6 C 56 L 16 96/62 L 96 09/04/16 08:00 09/04/16 08:00 09/04/16 08:00 09/04/16 08:00 09/04/16 08:00 Laboratory Results 09/04/16 04:37 09/03/16 09/04/16 09/05/16 05:59 05:59 05:59 Intake Total 3025 2310 Output Total 3450 600 Balance -425 1710 ICD10 Worksheet Patient Problems: Problems Problem Status Diagnosed Chronic abdominal pain Acute Cyclic vomiting syndrome Acute Abdominal pain Acute Dehydration Acute Nausea & vomiting Acute Sigmoid diverticulitis Acute
[2016-09-04] MEDS ORDERED: NS 250 ML IV ONE ×4 (12:40→16:00)
[2016-09-04] MEDS: NS 1,000 ML IV SCH ×2 (13:30→17:08)
[2016-09-04] MEDS: METOCLOPRAMIDE 5 MG TAB PO SCH ×2 (15:48→20:15)
[2016-09-04 16:14] LABS: % IMMATURE GRANULYOCYTES 0.2 % (0.0-1.1); ABSOLUTE IMMATURE GRANULOCYTES 0.02 10^3/uL (0.00-0.10); ADD DIFF? NO; ADD MORPH? NO; ADD SCAN? NO; ATYPICAL LYMPHOCYTE FLAG 0 (0-99); FRAGMENT RBC FLAG 0 (0-99); HEMATOCRIT 36.2 % (40.0-51.0); HEMOGLOBIN 13.1 g/dL (13.7-17.5); LEFT SHIFT FLG 0 (0-99); LIPEMIA HEMOLYSIS FLAG 90 (0-99); MEAN CELL HEMOGLOBIN 32.8 pg (27.9-34.1); MEAN CELL HEMOGLOBIN CONCENTR. 36.2 g/dL (32.4-36.7); MEAN CELL VOLUME 90.5 fL (81.5-99.8); MEAN PLATELET VOLUME 9.7 fL (8.7-11.7); PLATELET CLUMPS FLAG 0 (0-99); PLATELET COUNT 166 10^3/uL (150-400); RED CELL DISTRIBUTION WIDTH 12.5 % (11.5-15.2)
[2016-09-04 16:32] LABS: ALANINE AMINOTRANSFERASE 22 IU/L (21-72); ALBUMIN 2.8 g/dL (3.5-5.0); ALKALINE PHOSPHATASE 50 IU/L (38-126); ANION GAP 7 mEq/L (8-16); ASPARTATE AMINOTRANSFERASE 13 IU/L (17-59); BILIRUBIN,TOTAL 0.6 mg/dL (0.1-1.4); CALCIUM 8.2 mg/dL (8.5-10.4); CARBON DIOXIDE 27 mEq/l (22-31); CHLORIDE 105 mEq/L (97-110); GLOMERULAR FILTRATION RATE > 60; GLUCOSE 123 mg/dL (70-100); POTASSIUM 3.5 mEq/L (3.5-5.2); SODIUM 139 mEq/L (134-144); TOTAL PROTEIN 5.1 g/dL (6.3-8.2)
[2016-09-04] MEDS ORDERED: POTASSIUM CL 10 MEQ TAB PO ONE ×2 (17:25→23:04)
[2016-09-04 18:26] LABS: POTASSIUM 3.7 mEq/L (3.5-5.2)
[2016-09-04] MEDS: SENNOSIDES/DOCUSATE SODIUM TAB PO SCH (20:15)
[2016-09-04] MEDS ORDERED: TEMAZEPAM 15 MG CAP PO ONE (20:47)
[2016-09-05] MEDS: HYDROCODONE/APAP 5/325 TAB PO PRN ×3 (00:25→19:55)
[2016-09-05] MEDS: oxyCODONE IR 5 MG TAB PO PRN ×2 (02:16→09:03)
[2016-09-05] MEDS: NS 1,000 ML IV SCH ×2 (02:16→12:55)
[2016-09-05 05:13] LABS: POTASSIUM 4.2 mEq/L (3.5-5.2)
[2016-09-05] MEDS: METOCLOPRAMIDE 5 MG TAB PO SCH ×4 (06:07→19:55)
[2016-09-05] MEDS: KETOROLAC 30 MG/1 ML SDV IVP PRN ×2 (08:54→15:52)
[2016-09-05] MEDS: PANTOPRAZOLE SODIUM 40 MG in NS 100 ML IV SCH (08:54)
[2016-09-05] MEDS: ONDANSETRON DISINTEGRATING 4 MG TAB PO PRN (08:56)
[2016-09-05] MEDS: SENNOSIDES/DOCUSATE SODIUM TAB PO SCH ×2 (08:57→19:54)
[2016-09-05] MEDS: TAMSULOSIN HCL 0.4 MG CAP PO SCH (08:58)
[2016-09-05] MEDS: POLYETHYLENE GLYCOL 3350 17 GM PKT PO SCH (08:58)
--- NOTE | 2016-09-05 11:29 | SOAPPROG ---
SOAP Progress Note Assessment/Plan: Assessment: 61yo male admitted for ab pain, also with right hip mass s/p excision 09/03/16 Dr Wagner, path pending "hip still very sore" walked small amount yesterday, tolerating regular diet -- ate big breakfast this AM. Drain 60 out PE awake alert comfortable Right leg removed bandage incision dry, drain with serosag drainage, thigh soft to palpation, no difficulty moving right leg and normal sensation to touch over thigh. Plan encouraged ambulation. will try to remove drain before D/C as I am worried pt could be lost to F/U 09/05/16 11:27 Objective: Vital Signs Temp Pulse Resp BP Pulse Ox 36.8 C 55 L 16 122/86 H 95 09/05/16 07:20 09/05/16 07:20 09/05/16 07:20 09/05/16 07:20 09/05/16 07:20 Laboratory Results 09/04/16 16:05 09/05/16 04:44 09/04/16 09/05/16 09/06/16 05:59 05:59 05:59 Intake Total 2310 1100 225 Output Total 600 810 735 Balance 1710 290 -510 ICD10 Worksheet Patient Problems: Problems Problem Status Diagnosed Chronic abdominal pain Acute Cyclic vomiting syndrome Acute Abdominal pain Acute Dehydration Acute Nausea & vomiting Acute Sigmoid diverticulitis Acute
--- NOTE | 2016-09-05 11:31 | SOAPPROG ---
SOAP Progress Note Assessment/Plan: Assessment: 61yo male admitted for ab pain, also with right hip mass s/p excision 09/03/16 Dr Wagner, path pending "hip still very sore" walked small amount yesterday, tolerating regular diet -- ate big breakfast this AM. Drain 60 out PE awake alert comfortable Right leg removed bandage incision dry, drain with serosag drainage, thigh soft to palpation, no difficulty moving right leg and normal sensation to touch over thigh. Plan encouraged ambulation. will try to remove drain before D/C as I am worried pt could be lost to F/U path pending 09/05/16 11:27 09/05/16 11:31 Objective: Vital Signs Temp Pulse Resp BP Pulse Ox 36.8 C 55 L 16 122/86 H 95 09/05/16 07:20 09/05/16 07:20 09/05/16 07:20 09/05/16 07:20 09/05/16 07:20 Laboratory Results 09/04/16 16:05 09/05/16 04:44 09/04/16 09/05/16 09/06/16 05:59 05:59 05:59 Intake Total 2310 1100 225 Output Total 600 810 735 Balance 1710 290 -510 ICD10 Worksheet Patient Problems: Problems Problem Status Diagnosed Chronic abdominal pain Acute Cyclic vomiting syndrome Acute Abdominal pain Acute Dehydration Acute Nausea & vomiting Acute Sigmoid diverticulitis Acute
--- NOTE | 2016-09-05 13:34 | HOSPPROG ---
Hospitalist Progress Note Assessment/Plan: patient is a 61-year-old male with chronic abdominal pain. On his last emergency room visit his CT scan showed some mild diverticulitis and he was discharged with antibiotics. # mid epigastric abdominal pain * CT scan shows no clear etiology * suspect this may be stress related * will do a trial of Reglan. Patient also feels constipated will add bowel protocol. * Ultrasound negative * on PPI * trial of k pad * appetite is much better today/ ate breakfast * says he has a hx of diverticulitis but doesn't want any type of intervention # urinary urgency * Chronic problem for the patient # right hip mixed fat density per CT scan * Status post right hip mass excision # hypotension * resolved/ was given normal saline bolus yesterday and hydrated overnight # leukocytosis * Acute response # homelessness * patient has been living in his car /Van * he has a daughter in the [place] area who would be okay for him to live with her * in addition he has a friend in the local area who he might be able to stay with * case management getting involved * PT and OT have recommended SNF but Celso isn't sure he will go if available # disposition * CM talking with patient/will plan on tomorrow morning if stable Subjective: Celso said he is feeling too weak today. Objective: Vital Signs Temp Pulse Resp BP Pulse Ox 36.8 C 58 L 16 127/85 H 91 L 09/05/16 11:38 09/05/16 11:38 09/05/16 11:38 09/05/16 11:38 09/05/16 11:38 Laboratory Results 09/04/16 16:05 09/05/16 04:44 09/04/16 09/05/16 09/06/16 05:59 05:59 05:59 Intake Total 2310 1100 225 Output Total 600 810 735 Balance 1710 290 -510 - Physical Exam Constitutional: uncomfortable Eyes: PERRL Ears, Nose, Mouth, Throat: hearing normal Cardiovascular: regular rate and rhythym Respiratory: no respiratory distress Gastrointestinal: normoactive bowel sounds, soft, non-tender abdomen Skin: warm Musculoskeletal: generalized weakness Neurologic: AAOx3 Psychiatric: interacting appropriately, flat affect ICD10 Worksheet Patient Problems: Problems Problem Status Diagnosed Chronic abdominal pain Acute Cyclic vomiting syndrome Acute Abdominal pain Acute Dehydration Acute Nausea & vomiting Acute Sigmoid diverticulitis Acute
[2016-09-05 19:21] LABS: POTASSIUM 3.5 mEq/L (3.5-5.2)
[2016-09-06] MEDS: NS 1,000 ML IV SCH (04:16)
[2016-09-06] MEDS: METOCLOPRAMIDE 5 MG TAB PO SCH ×2 (05:30→12:44)
[2016-09-06 06:07] LABS: POTASSIUM 3.9 mEq/L (3.5-5.2)
[2016-09-06] MEDS ORDERED: POTASSIUM CL 10 MEQ TAB PO ONE ×2 (06:46→09:30)
[2016-09-06 08:31] VITALS: RESP 19
--- NOTE | 2016-09-06 08:44 | HOSPPROG ---
Hospitalist Progress Note Assessment/Plan: patient is a 61-year-old male with chronic abdominal pain. On his last emergency room visit his CT scan showed some mild diverticulitis and he was discharged with antibiotics. # mid epigastric abdominal pain * CT scan shows no clear etiology * suspect this may be stress related * will do a trial of Reglan. Patient also feels constipated will add bowel protocol. * Ultrasound negative * on PPI * trial of k pad * appetite is improving * says he has a hx of diverticulitis but doesn't want any type of intervention # urinary urgency * Chronic problem for the patient # right hip mixed fat density per CT scan * Status post right hip mass excision * has axel drain in # hypotension * resolved # leukocytosis * Acute response # homelessness * patient has been living in his car /Van * he has a daughter in the [place] area who would be okay for him to live with her * in addition he has a friend in the local area who he might be able to stay with * case management getting involved * PT and OT have recommended SNF but Celso has declined # disposition * dc today Subjective: Celso says he wants to eat. His right leg still is uncomfortable. Objective: Vital Signs Temp Pulse Resp BP Pulse Ox 36.9 C 76 19 157/88 H 96 09/06/16 08:00 09/06/16 08:00 09/06/16 08:00 09/06/16 08:00 09/06/16 08:00 Laboratory Results 09/04/16 16:05 09/06/16 04:20 09/05/16 09/06/16 09/07/16 05:59 05:59 05:59 Intake Total 1100 5856 1400 Output Total 810 2635 Balance 290 3221 1400 - Physical Exam Constitutional: no apparent distress, appears nourished Eyes: PERRL Ears, Nose, Mouth, Throat: hearing normal Respiratory: no respiratory distress Skin: warm, other (axel in right thigh area) Musculoskeletal: generalized weakness Neurologic: AAOx3 Psychiatric: interacting appropriately, flat affect ICD10 Worksheet Patient Problems: Problems Problem Status Diagnosed Chronic abdominal pain Acute Cyclic vomiting syndrome Acute Abdominal pain Acute Dehydration Acute Nausea & vomiting Acute Sigmoid diverticulitis Acute
[2016-09-06] MEDS ORDERED: PANTOPRAZOLE SODIUM 40 MG TAB PO SCH (09:00)
[2016-09-06] MEDS: POLYETHYLENE GLYCOL 3350 17 GM PKT PO SCH (09:08)
[2016-09-06] MEDS: TAMSULOSIN HCL 0.4 MG CAP PO SCH (09:08)
[2016-09-06] MEDS: SENNOSIDES/DOCUSATE SODIUM TAB PO SCH (09:09)
--- NOTE | 2016-09-06 09:41 | SOAPPROG ---
SOAP Progress Note Assessment/Plan: Assessment/Plan - 61yo m s/p R thigh mass resection - Continues to do well, pain appears well controlled and has been ambulating without assist - RUSSELL serosang, will remove before d/c - Will d/c today to friends house. Discussed showering and overall incision care. Will follow in 10-[address] Wagner for wound check and to discuss path 09/06/16 09:39 Objective: Vital Signs Temp Pulse Resp BP Pulse Ox 36.9 C 76 19 157/88 H 96 09/06/16 08:00 09/06/16 08:00 09/06/16 08:00 09/06/16 08:00 09/06/16 08:00 Laboratory Results 09/04/16 16:05 09/06/16 04:20 09/05/16 09/06/16 09/07/16 05:59 05:59 05:59 Intake Total 1100 5856 1400 Output Total 810 2635 Balance 290 3221 1400 ICD10 Worksheet Patient Problems: Problems Problem Status Diagnosed Chronic abdominal pain Acute Cyclic vomiting syndrome Acute Abdominal pain Acute Dehydration Acute Nausea & vomiting Acute Sigmoid diverticulitis Acute
[2016-09-06 11:27] VITALS: BP 144/100; PULSE 67; TEMP 98.3; O2SAT 93
--- NOTE | 2016-09-06 14:13 | GDS ---
[f rep st] DISCHARGE SUMMARY DISCHARGE DIAGNOSES: 1. Mid epigastric abdominal pain/this is chronic. 2. Urinary urgency. 3. Right hip mixed density. 4. Hypotension. 5. Leukocytosis. 6. Homelessness. CONSULTATIONS: Dr. José Miguel Wagner. BRIEF HISTORY: The patient is a 61-year-old male who has had chronic abdominal pain for quite some time. He was seen in the emergency room. His CT scan showed some mild diverticulitis and he was discharged with antibiotics. He has had multiple ER visits where his abdominal CT scan was unremarkable. He then presented on this admission with worsening abdominal pain. He describes it as diverticulitis pain. He also has had some weight loss over the years. He had an EGD and colonoscopy done here in March 2012, which showed colon polyps, which were biopsied. In talking with the patient, he does not really want any further treatment in regard to his chronic abdominal pain. Also of note, it was noted during his stay that he had a mixed fat density. This was excised during his stay. He as done overall well with this. HOSPITAL COURSE: 1. Chronic abdominal pain. CT scan was performed, which shows no clear-cut etiology. I suspect this may be stress related. He also has been complaining of constipation. He had an ultrasound performed that was negative. He is eating and drinking well. He says he has a long history of diverticulitis but does not want any type of intervention. 2. Urinary urgency. This is chronic. He will be discharged on Flomax. 3. Right hip mixed fat density noted on the CT scan. He is status post right hip mass excision. A RUSSELL drain was removed today. 4. Hypotension, resolved with fluids. 5. Leukocytosis due to acute response. 6. Homelessness. The patient has been living in his van. I have encouraged him to go to a alf facility. He has declined this. In addition, he has a friend he was going to stay with. I am unclear if he will stay with this friend but I have offered home care. He has a daughter in the [place] area who said it would be okay for him to live with her, but at this time he wants to wait. PENDING LABS AND TESTS: tissue from his hip is pending. CONDITION AT DISCHARGE: Stable. Blood pressure is 144/100, heart rate is 67, respiratory rate is 19, O2 saturation on room air 93%, temperature 36.8 Celsius. DISCHARGE MEDICATIONS: Please see the EMR. DISCHARGE INSTRUCTIONS: 1. To follow up with the surgical team next week. He will get the phone number. 2. To follow up with [facility] on September 10, at 2:05. He has an appointment with Kishor Leon. 3. Okay to shower. He needs to cover his hip incision if leaking; otherwise, no need to cover. It is okay to get the Steri-Strips wet. 4. If he develops fever, chills, chest pain, or shortness of breath, return to the emergency room. Greater than 30 minutes discharging and coordinating care. Copy requested to: Dr. Wagner /[id number]/MODL MTDD
--- NOTE | 2016-09-15 12:42 | GOP ---
[f rep st] OPERATIVE REPORT DATE OF OPERATION: 09/03/2016 SURGEON: José Miguel Wagner MD HOOP FLARING MACHINE OPERATOR: CASSIE Costa PREOPERATIVE DIAGNOSIS: Enlarging right hip mass, suspicious for liposarcoma. POSTOPERATIVE DIAGNOSIS: Enlarging right hip mass, suspicious for liposarcoma, path pending. PROCEDURE PERFORMED: Excision of a right intramuscular hip mass, including the tensor fascia forest mu scle. 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 Deep margins were clear. DESCRIPTION OF PROCEDURE: Patient taken to the operating room, where he received a satisfactory gene ral endotracheal anesthesia by Dr. Altamirano. He was placed in the slight left lateral decubitus positio n, and prepped and draped in the usual sterile fashion. Longitudinal incision was made over the mass. Prior to this, a needle biopsy was taken of the mass a nd sent out to Pathology; however, the biopsy fragments appeared to be just fatty tissue and nondiagn ostic. It was elected to proceed with a radical resection. Longitudinal incision was made and carried down through the subcutaneous tissue, down to the tensor f ascia forest muscle, and to the palpable mass. The dissection elevated up the tensor fascia forest muscl e containing the mass. This was clearly separate from the other muscular components of the thigh. T he tendon was divided distally and the muscle insertion was divided proximally with electrocautery an d the Harmonic Scalpel. The entire specimen was removed and sent to Pathology. Hemostasis was thoro ughly obtained. Initial impression of the pathologist was it was probably benign. A 15 round RUSSELL drain was brought out through a separate stab incision and placed in the wound cavity. Hemostasis was thoroughly obtained. The wound was infiltrated with 0.5% Marcaine. Subcu and superf icial fascia were closed with a running 2-0 Vicryl suture and the skin with skin delano. He tolerated the procedure quite well. Blood loss was less than 50 cc. There were no complications. /[id number]/MODL
== END 2016-09-06 15:15 | disposition home or self-care (01) | DRG 392 ==
LOC: INTOOBSV 18:16 → F3E 19:58 → OBSVTOIN 09-01 16:05
PROVIDERS: ADMIT Internal Medicine; ATTEND Internal Medicine
PROC: 0JBL0ZX Excision of Right Upper Leg Subcutaneous Tissue and Fascia, Open Approach, Diagnostic (ICD-10-PCS; principal; 2016-09-03 11:15)
DX: K57.92 Diverticulitis of intestine, part unspecified, without perforation or abscess without bleeding (principal); D21.21 Benign neoplasm of connective and other soft tissue of right lower limb, including hip; N39.41 Urge incontinence; I95.9 Hypotension, unspecified; G89.29 Other chronic pain; Z59.0 Homelessness; Z88.0 Allergy status to penicillin
CPT/HCPCS: 96374; 97162-GP; 97165-GO; 97530-GO; G0378; J1100; J1170; J1335; J1650; J1885; J2250; J2370; J2405; J2704; J3010; Q9967

== ENCOUNTER 2017-01-14 05:49 | Observation (INO) | payer MEDICAID ==
[2017-01-14] MEDS ORDERED: NS 1,000 ML IV ONE ×2 (05:59)
[2017-01-14] MEDS ORDERED: FAMOTIDINE 20 MG/NACL 50 ML IV ONE (05:59)
[2017-01-14] MEDS ORDERED: ONDANSETRON 4 MG/2 ML VIAL IVP ONE (05:59)
--- NOTE | 2017-01-14 06:03 | EDPHY ---
H & P Stated Complaint: abd pain with nausea x4 hours- similar to previous diverticulitis Source: Patient Exam Limitations: No limitations - Personal History Current Tetanus Diphtheria and Acellular Pertussis (TDAP): Yes Tetanus Vaccine Date: < 10 YEARS - Medical/Surgical History Hx Asthma: No Hx Chronic Respiratory Disease: No Hx Diabetes: No Hx Cardiac Disease: No Hx Renal Disease: No Hx Cirrhosis: No Hx Alcoholism: No Hx HIV/AIDS: No Hx Splenectomy or Spleen Trauma: No Other PMH: diverticiulitis, Lt ACL SURGERY, tumor right hip;Hepatitis ;smokes; marijuana use - Social History Smoking Status: Never smoked HPI/ROS: HPI The patient presents with abdominal pain and vomiting which began a few hours prior to presentation and awoke him from sleep. He initially felt discomfort throughout his entire abdomen and then began vomiting. The pain is constant, aching in nature, and stable. He has had multiple episodes of nonbloody nonbilious emesis. He had some medication at home for this, however it is run out. His last bowel movement was 2 hours ago. He thinks over the last few days he has become dehydrated and this is what has provoked his symptoms. He also was started on a new medication for arthritis, however cannot recall the name. His symptoms feel similar to prior episodes. Last was in August and he was admitted to the hospital. REVIEW OF SYSTEMS Constitutional: No fever, no chills. Eyes: No discharge. ENT: No sore throat. Cardiovascular: No chest pain, no palpitations. Respiratory: No cough, no shortness of breath. Gastrointestinal: No abdominal pain, no vomiting. Genitourinary: No hematuria. Musculoskeletal: No back pain. Skin: No rashes. Neurological: No headache. PMHx: History of diverticulitis, cyclic vomiting syndrome, chronic abdominal pain Soc Hx: Lives alone, does not use alcohol. PHYSICAL General Appearance: Alert, uncomfortable appearing, actively retching Eyes: Pupils equal and round no pallor or injection ENT, Mouth: Mucous membranes dry Respiratory: There are no retractions, lungs are clear to auscultation Cardiovascular: Regular rate and rhythm Gastrointestinal: Abdomen is soft and non-tender, no masses, bowel sounds normal Neurological: A&O, moves all extremities Skin: Warm and dry, no rashes Musculoskeletal: Neck is supple non tender Extremities: symmetrical, full range of motion Psychiatric: Patient is oriented X 3, there is no agitation (Riguzzi,Alisha) Constitutional: Initial Vital Signs Temperature (C) 36.3 C 01/14/17 05:55 Heart Rate 76 01/14/17 05:55 Respiratory Rate 26 H 01/14/17 05:55 Blood Pressure 154/111 H 01/14/17 05:55 O2 Sat (%) 99 01/14/17 05:55 O2 Delivery Mode Room Air Allergies/Adverse Reactions: Penicillins Allergy (Verified 07/13/16 09:07) Rash Home Medications: Medication Instructions Recorded Ondansetron Odt [Zofran Odt 4 mg 4 mg PO Q4 PRN #10 tab 01/14/17 (*)] Unknown Anti- Inflamtory 01/14/17 Medical Decision Making ED Course/Re-evaluation: 0 700: The patient is signed out to me at change of shift. I reviewed the case with Dr. ware. I reviewed her documentation. The went personally evaluated the patient. He stated he still was having abdominal discomfort and nausea. He describes discomfort just above his umbilicus. GENERAL: No acute distress, alert. HEENT: Eyes normal to inspection, normal pharynx, no signs of dehydration. RESPIRATORY: Clear to auscultation bilaterally, no rales, rhonchi or wheezing. CVS: Regular rate and rhythm, no rubs, murmurs, or gallops. ABDOMEN: Soft, minimal epigastric tenderness to palpation with no rebound or guarding, nondistended, no organomegaly. BACK: Normal to inspection, no CVA tenderness. SKIN: Normal color, no rash, warm, dry. No pallor. EXTREMITIES: No pedal edema, no calf tenderness, no Homans sign or cords, no joint swelling. NEURO/PSYCH: Alert and oriented x3, normal mood and affect, normal motor sensory exam. I discussed the plan with the patient. I answered all his questions. Patient was noted to have a mildly elevated white count of 12. His chemistry and LFTs were unremarkable. Patient was given Phenergan 12.5 mg IV. I rechecked the patient. He still was having some abdominal discomfort. His abdomen was soft nondistended. He was given Reglan 10 mg IV. 910: I rechecked the patient. He still was complaining of mild abdominal discomfort. Patient has mild tenderness to palpation superior to his umbilicus. No rebound or guarding. Because of the ongoing pain a CT with IV contrast was ordered. He will be admitted for further observation. I discussed the case with the hospitalist service. Dr. Garcia will admit. ( Denisha Cooper) Differential Diagnosis: This is a 61-year-old male with history of cyclic vomiting, chronic abdominal pain, diverticulitis who presents from home with several hours of abdominal pain and vomiting. On exam, he is uncomfortable appearing, actively vomiting. His abdominal exam however is benign. Differential diagnosis includes cyclic vomiting syndrome, gastroenteritis, toxin mediated enterocolitis, less likely diverticulitis given no abdominal tenderness. In the emergency room, the patient was started on IV fluids and antiemetics. Basic labs were checked. After initial famotidine, Zofran, Haldol, the patient was still symptomatic, though improving. I have ordered Haldol and Toradol for him. 7:00 a.m.- The patient is now resting comfortably. Labs are checked and are unremarkable. The case will be signed out to the oncoming provider Dr. Cooper for recheck. If he continues to be symptomatic, he may require admission, otherwise he can be discharged with follow-up at [facility] and outpatient management. (Alisha Canales) - Data Points Laboratory Results: Laboratory Results 01/14/17 06:05 01/14/17 06:05 01/14/17 01/14/17 06:05 06:05 WBC 12.48 10^3/uL H 10^3/uL (3.80-9.50) RBC 5.11 10^6/uL 10^6/uL (4.40-6.38) Hgb 16.4 g/dL g/dL (13.7-17.5) Hct 46.5 % % (40.0-51.0) MCV 91.0 fL fL (81.5-99.8) MCH 32.1 pg pg (27.9-34.1) MCHC 35.3 g/dL g/dL (32.4-36.7) RDW 12.9 % % (11.5-15.2) Plt Count 244 10^3/uL 10^3/uL (150-400) MPV 9.2 fL fL (8.7-11.7) Neut % (Auto) 83.3 % H % (39.3-74.2) Lymph % (Auto) 11.1 % L % (15.0-45.0) [place] % (Auto) 4.8 % % (4.5-13.0) Eos % (Auto) 0.1 % L % (0.6-7.6) Baso % (Auto) 0.3 % % (0.3-1.7) Nucleat RBC Rel Count 0.0 % % (0.0-0.2) Absolute Neuts (auto) 10.39 10^3/uL H 10^3/uL (1.70-6.50) Absolute Lymphs (auto) 1.39 10^3/uL 10^3/uL (1.00-3.00) Absolute Monos (auto) 0.60 10^3/uL 10^3/uL (0.30-0.80) Absolute Eos (auto) 0.01 10^3/uL L 10^3/uL (0.03-0.40) Absolute Basos (auto) 0.04 10^3/uL 10^3/uL (0.02-0.10) Absolute Nucleated RBC 0.00 10^3/uL 10^3/uL (0-0.01) Immature Gran % 0.4 % % (0.0-1.1) Immature Gran # 0.05 10^3/uL 10^3/uL (0.00-0.10) Sodium 143 mEq/L mEq/L (134-144) Potassium 3.5 mEq/L mEq/L (3.5-5.2) Chloride 105 mEq/L mEq/L (97-110) Carbon Dioxide 24 mEq/l mEq/l (22-31) Anion Gap 14 mEq/L mEq/L (8-16) BUN 19 mg/dL mg/dL (7-23) Creatinine 1.0 mg/dL mg/dL (0.7-1.3) Estimated GFR > 60 Glucose 146 mg/dL H mg/dL (70-100) Calcium 9.5 mg/dL mg/dL (8.5-10.4) Total Bilirubin 0.7 mg/dL mg/dL (0.1-1.4) Conjugated Bilirubin 0.4 mg/dL mg/dL (0.0-0.5) Unconjugated Bilirubin 0.3 mg/dL mg/dL (0.0-1.1) AST 24 IU/L IU/L (17-59) ALT 24 IU/L IU/L (21-72) Alkaline Phosphatase 86 IU/L IU/L (38-126) Total Protein 7.0 g/dL g/dL (6.3-8.2) Albumin 4.4 g/dL g/dL (3.5-5.0) Lipase 66.0 IU/L IU/L (23-300) Medications Given: Discontinued Medications Haloperidol Lactate (Haldol Injection) 2.5 mg IVP EDNOW ONE Stop: 01/14/17 06:15 Last Admin: 01/14/17 06:21 Dose: 2.5 mg Haloperidol Lactate (Haldol Injection) 2.5 mg IVP EDNOW ONE Stop: 01/14/17 06:41 Last Admin: 01/14/17 06:47 Dose: 2.5 mg Sodium Chloride (Ns) 1,000 mls @ 0 mls/hr IV ONCE ONE; Wide Open PRN Reason: Protocol Stop: 01/14/17 06:00 Last Admin: 01/14/17 06:14 Dose: 1,000 mls Sodium Chloride (Ns) 1,000 mls @ 0 mls/hr IV ONCE ONE; Wide Open PRN Reason: Protocol Stop: 01/14/17 06:00 Last Admin: 01/14/17 06:15 Dose: 1,000 mls Famotidine/Sodium Chloride (Pepcid 20 Mg (Premix)) 50 mls @ 200 mls/hr IV EDNOW ONE Stop: 01/14/17 06:13 Last Admin: 01/14/17 06:14 Dose: 50 mls Ketorolac Tromethamine (Toradol) 15 mg IVP EDNOW ONE Stop: 01/14/17 06:42 Last Admin: 01/14/17 06:47 Dose: 15 mg Metoclopramide HCl (Reglan Injection) 10 mg IVP EDNOW ONE Stop: 01/14/17 08:24 Last Admin: 01/14/17 08:32 Dose: 10 mg Ondansetron HCl (Zofran) 4 mg IVP EDNOW ONE Stop: 01/14/17 06:00 Last Admin: 01/14/17 06:14 Dose: 4 mg Promethazine HCl (Phenergan) 12.5 mg IVP ONCE ONE Stop: 01/14/17 07:13 Last Admin: 01/14/17 07:30 Dose: 12.5 mg Departure - Departure Disposition: [facility] Inpatient Acute Clinical Impression: Vomiting Qualifiers: Vomiting type: unspecified Vomiting Intractability: non-intractable Nausea presence: with nausea Qualified Code(s): R11.2 - Nausea with vomiting, unspecified Abdominal pain Qualifiers: Abdominal location: epigastric Qualified Code(s): R10.13 - Epigastric pain Condition: Good Instructions: Acute Nausea and Vomiting (ED) Referrals: Olga King PA [Primary Care Provider] - As per Instructions Prescriptions: Ondansetron Odt [Zofran Odt 4 mg (*)] 4 mg PO Q4 PRN #10 tab PRN Reason: Nausea/Vomiting, Can'T Take Po
[2017-01-14 06:11] LABS: % IMMATURE GRANULYOCYTES 0.4 % (0.0-1.1); ABSOLUTE IMMATURE GRANULOCYTES 0.05 10^3/uL (0.00-0.10); ADD DIFF? NO; ADD MORPH? NO; ADD SCAN? NO; ATYPICAL LYMPHOCYTE FLAG 0 (0-99); FRAGMENT RBC FLAG 0 (0-99); HEMATOCRIT 46.5 % (40.0-51.0); HEMOGLOBIN 16.4 g/dL (13.7-17.5); LEFT SHIFT FLG 0 (0-99); LIPEMIA HEMOLYSIS FLAG 90 (0-99); MEAN CELL HEMOGLOBIN 32.1 pg (27.9-34.1); MEAN CELL HEMOGLOBIN CONCENTR. 35.3 g/dL (32.4-36.7); MEAN PLATELET VOLUME 9.2 fL (8.7-11.7); PLATELET CLUMPS FLAG 0 (0-99); PLATELET COUNT 244 10^3/uL (150-400); RED BLOOD CELL COUNT 5.11 10^6/uL (4.40-6.38); RED CELL DISTRIBUTION WIDTH 12.9 % (11.5-15.2)
[2017-01-14] MEDS ORDERED: HALOPERIDOL LACT 5 MG/ML INJ IVP ONE ×2 (06:14→06:40)
[2017-01-14] MEDS ORDERED: KETOROLAC 15 MG/1 ML SDV IVP ONE (06:41)
[2017-01-14 06:53] LABS: ALANINE AMINOTRANSFERASE 24 IU/L (21-72); ALBUMIN 4.4 g/dL (3.5-5.0); ALKALINE PHOSPHATASE 86 IU/L (38-126); ANION GAP 14 mEq/L (8-16); ASPARTATE AMINOTRANSFERASE 24 IU/L (17-59); BILIRUBIN,TOTAL 0.7 mg/dL (0.1-1.4); BILIRUBIN-CONJUGATED 0.4 mg/dL (0.0-0.5); BILIRUBIN-UNCONJUGATED 0.3 mg/dL (0.0-1.1); CALCIUM 9.5 mg/dL (8.5-10.4); CARBON DIOXIDE 24 mEq/l (22-31); CHLORIDE 105 mEq/L (97-110); GLOMERULAR FILTRATION RATE > 60; GLUCOSE 146 mg/dL (70-100); POTASSIUM 3.5 mEq/L (3.5-5.2); SODIUM 143 mEq/L (134-144)
[2017-01-14] MEDS ORDERED: PROMETHAZINE HCL 25 MG/ML INJ IVP ONE (07:12)
[2017-01-14] MEDS ORDERED: METOCLOPRAMIDE 10 MG/2 ML VIAL IVP ONE (08:23)
[2017-01-14] MEDS ORDERED: IOPAMIDOL (ISOVUE-300) 100 ML BTL ONE (09:20)
[2017-01-14] MEDS ORDERED: ACETAMINOPHEN 325 MG TAB PO PRN (10:22)
[2017-01-14] MEDS ORDERED: ONDANSETRON 4 MG/2 ML VIAL IVP PRN (10:22)
[2017-01-14] MEDS ORDERED: ONDANSETRON DISINTEGRATING 4 MG TAB PO PRN (10:22)
[2017-01-14] MEDS ORDERED: CALCIUM CARBONATE 500 MG CHEWABLE TAB PO PRN (12:04)
--- NOTE | 2017-01-14 12:40 | GHP ---
[f rep st] HISTORY AND PHYSICAL DATE OF ADMISSION: 01/14/2017 CHIEF COMPLAINT: Acute on chronic abdominal pain. HISTORY OF PRESENT ILLNESS: The patient is a 61-year-old male, with history of chronic epigastric abdominal pain, diverticulitis, presenting with increased abdominal pain today. He also endorsed nonbloody emesis that awoke him from sleep. He feels that his stomach is numb and empty feeling. Last bowel movement was 2 hours ago, but denies any diarrhea. He thinks he has become dehydrated over the last few days which has provoked his symptoms. He said he was started on a new medication for arthritis, but cannot recall the name. Symptoms feel similar to prior episodes of abdominal pain. Denies fevers, chills or sweats. No diarrhea. No myalgias. No change in diet. Does endorse smoking marijuana several times daily. REVIEW OF SYSTEMS: I completed a 10-point review of systems, negative except as noted in the HPI. PAST MEDICAL HISTORY: 1. Chronic epigastric abdominal pain. 2. Homelessness. 3. Right hip mass status post resection, and benign. 4. Diverticulitis. 5. Depression. PAST SURGICAL HISTORY: Knee surgery, right hip mass excision; negative for malignancy. ALLERGIES: No known drug allergies. MEDICATIONS: Patient cannot recall the new medication he was started on. FAMILY HISTORY: No diabetes or CAD. SOCIAL HISTORY: Lives in vehicle in [facility]. Denies tobacco or alcohol. Smokes marijuana several times daily. PHYSICAL EXAM: VITAL SIGNS: Temperature 36.6, blood pressure 154/111; now 156/ 99, heart rate in the 70s, respirations 16, 93% on room air. GENERAL: Patient is sleeping. Will not open eyes during interview, but answers appropriately. HEENT: PERRLA. Dry mucous membranes. CV: Regular rate and rhythm. No murmurs, gallops, or rubs. LUNGS: Clear to auscultation bilaterally. ABDOMEN : Soft, nondistended. Positive epigastric and right lower quadrant tenderness. No rebound or guarding. Positive bowel sounds. MUSCULOSKELETAL: 5/5 upper and lower extremity strength. NEURO: 2 through 12 intact. PSYCH: Alert and oriented x3. LABS: WBC 12.4, hemoglobin 16, hematocrit 46, platelets 244. Sodium 143, potassium 4.3, chloride 105, carbon dioxide 24, anion gap 14, creatinine 1, glucose 146. LFTs within normal. Lipase 66. Abdominal CT: Negative for abscess or other signs of infection. Diverticulosis without diverticulitis. No obstruction. Multiple hepatic cysts and hemangiomas similar to prior study. 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 ASSESSMENT AND PLAN: 1. Acute on chronic abdominal pain, unclear etiology. It sounds like patient has not eaten been eating normally. Consider a gastroenteritis. Denies diarrhea. He has had a prior EGD that was negative. Query if chronic marijuana use could be contributing. Will admit patient to observation unit and hydrate with IV fluids. P.r.n. Toradol for pain. 2. Leukocytosis, mild. May be secondary to dehydration, will hydrate. No fever. Denies other infectious symptoms. We will check a UA with increased urinary frequency. 3. Diet: Regular. 4. Deep thrombosis prophylaxis: Low risk, ambulatory. DISPOSITION: Patient warrants observation admission given acute on chronic abdominal pain and inability to take in p.o. We will hydrate with IV fluids and repeat labs. /[id number]/MODL MTDD
[2017-01-14] MEDS: NS 1,000 ML IV SCH ×2 (13:51→22:07)
[2017-01-14] MEDS: KETOROLAC 15 MG/1 ML SDV IVP SCH ×3 (13:53→23:39)
[2017-01-14 14:19] LABS: COLOR PALE YELLOW; LEUKOCYTE ESTERASE,URINE NEGATIVE (NEGATIVE); NITRITE,URINE NEGATIVE (NEGATIVE)
[2017-01-14 14:22] LABS: MUCUS TRACE /lpf (NONE-1+)
[2017-01-15 01:09] VITALS: O2SAT 93
[2017-01-15 05:13] LABS: HEMATOCRIT 42.7 % (40.0-51.0); HEMOGLOBIN 15.1 g/dL (13.7-17.5); MEAN CELL HEMOGLOBIN 32.3 pg (27.9-34.1); MEAN CELL HEMOGLOBIN CONCENTR. 35.4 g/dL (32.4-36.7); MEAN CELL VOLUME 91.2 fL (81.5-99.8); RED BLOOD CELL COUNT 4.68 10^6/uL (4.40-6.38); RED CELL DISTRIBUTION WIDTH 13.1 % (11.5-15.2)
[2017-01-15] MEDS: NS 1,000 ML IV SCH (05:25)
[2017-01-15] MEDS: KETOROLAC 15 MG/1 ML SDV IVP SCH (05:25)
[2017-01-15 08:31] VITALS: BP 112/75; PULSE 94; RESP 15; TEMP 98.1
[2017-01-15] MEDS ORDERED: ENOXAPARIN 40 MG/0.4 ML SYR SC SCH (09:00)
--- NOTE | 2017-01-15 09:40 | GDS ---
[f rep st] DISCHARGE SUMMARY DISCHARGE DIAGNOSES: 1. Mzoyr-[id number] epigastric pain. 2. History of diverticulitis. 3. History of right hip mass, status post resection. 4. Homelessness. 5. Depression. HPI: Patient is a 61-year-old male with history of chronic epigastric abdominal pain, diverticulitis, presenting with increased abdominal pain today. He endorsed several episodes of nonbloody emesis that awoke him from sleep. Said stomach felt numb and empty. Last bowel movement was 2 hours prior, but denies diarrhea. He thinks he has become dehydrated over the last few days, which has provoked his symptoms. He was started on a new medication for his arthritis, but cannot recall the name. Denies any fevers, chills, or sweats. No myalgias. No change in diet. Does endorse smoking marijuana several times daily. HOSPITAL COURSE BY PROBLEM: 1. Actxf-xj-qhsxoey epigastric abdominal pain: May have been exacerbated by dehydration. CT was unrevealing. He denies any diarrhea. He has had a prior EGD that was negative. Query if chronic marijuana is contributing. Symptoms much improved today. 2. Leukocytosis: Very mild. Afebrile. Again, no evidence of abdominal infection or other infectious symptoms. Resolved 3. Nausea secondary to possible underlying gastroenteritis. This resolved with Zofran. DISPOSITION: Patient is stable for discharge. NEW MEDICATIONS: Eddie dow /[id number]/MODL MTDD
== END 2017-01-15 10:20 | disposition home or self-care (01) ==
LOC: F3E 11:42
PROVIDERS: ADMIT Internal Medicine; ATTEND Internal Medicine
DX: R10.13 Epigastric pain (principal); G89.29 Other chronic pain; D72.829 Elevated white blood cell count, unspecified; R11.0 Nausea; K57.30 Diverticulosis of large intestine without perforation or abscess without bleeding; F32.9 Major depressive disorder, single episode, unspecified; Z59.0 Homelessness; Z88.0 Allergy status to penicillin
CPT/HCPCS: 74177; 96361; 96365; 96375; 99285; G0378; J1885; J2405; J2550; J2765; Q9967

== ENCOUNTER 2017-05-05 12:00 | Inpatient (IN) | payer MEDICAID ==
--- NOTE | 2017-05-05 12:03 | EDPHY ---
H & P HPI/ROS: CHIEF COMPLAINT: Vomiting and chronic abdominal pain HISTORY OF PRESENT ILLNESS: The patient is a 61 y/o male arriving via EMS complaining of persistent vomiting and retching onset this morning a few hours ago. He has associated midepigastric pain. He has been admitted here 7 times for similar symptoms since 2016 and attributes his symptoms to his diverticulosis. During his last admission this January, He does not take any medications for his symptoms. He received 100mg IV Fentanyl and 4mg IV Zofran en route to the ED. He is reluctant to answer many of my questions beyond stating "I don't know" and history is limited due to this. He also complains of intermittent bilateral knee pain for "weeks and weeks." REVIEW OF SYSTEMS: A ten point review of systems was performed and is negative with the exception of the items mentioned in the HPI. Past medical history: Diverticulitis, chronic abdominal pain, hypertension, depression, homelessness Past surgical history: Benign right hip mass resection, knee surgery Family history: noncontributory Social history: Nonsmoker. No alcohol use. Marijuana use every other day. Homeless, lives in his vehicle. PCP:[facility] Prior medical records reviewed including admission 01/14/2017 for chronic abdominal pain General Appearance: Alert. Vital signs reviewed. Initial BP 158/118, RR 21. Eyes: Pupils equal and round, no conjunctival injection, no discharge. Anicteric. ENT, Mouth: Mucous membranes are moist, no oropharyngeal erythema or edema. Neck: No lymphadenopathy, supple. Respiratory: Lungs are clear to auscultation; no wheezes, rales, or rhonchi. Hyperventilating. Cardiovascular: Regular rate and rhythm; no murmur, rub, or gallop. Gastrointestinal: Abdomen is soft with diffuse tenderness and no guarding, no masses or organomegaly, bowel sounds normal. Skin: Warm and dry, no rashes on exposed skin, normal color. Back: Nontender to palpation over the thoracolumbar spine. No CVAT. Extremities: No lower extremity edema, no calf tenderness or swelling. Neurological: Alert and oriented. Moving all four extremities easily and equally. Psychiatric: Normal affect. - Personal History Tetanus Vaccine Date: < 10 YEARS - Medical/Surgical History Hx Asthma: No Hx Chronic Respiratory Disease: No Hx Diabetes: No Hx Cardiac Disease: No Hx Renal Disease: No Hx Cirrhosis: No Hx Alcoholism: No Hx HIV/AIDS: No Hx Splenectomy or Spleen Trauma: No Other PMH: diverticiulitis, Lt ACL SURGERY, tumor right hip;Hepatitis ;smokes; marijuana use - Social History Smoking Status: Never smoked Constitutional: Initial Vital Signs Temperature (C) 36.5 C 05/05/17 12:10 Heart Rate 97 05/05/17 12:10 Respiratory Rate 21 H 05/05/17 12:10 Blood Pressure 158/118 H 05/05/17 12:10 O2 Sat (%) 100 05/05/17 12:10 O2 Delivery Mode Room Air O2 (L/minute) 2 Allergies/Adverse Reactions: Penicillins Allergy (Verified 05/05/17 12:10) Rash Home Medications: Medication Instructions Recorded Acetaminophen [Tylenol 325mg (*)] 650 mg PO Q4HRS PRN tab 05/07/17 Polyethylene Glycol 3350 [Miralax 17 gm PO DAILY PRN pkt 05/07/17 17 gm (*)] Psyllium Seed [Metamucil (*)] 1 each PO DAILY pkt 05/07/17 Medical Decision Making ED Course/Re-evaluation: Patient re-evaluated about 45 minutes after his arrival at which time he was resting comfortably. However, at 2:40 p.m. he again began retching and vomited repeatedly, in spite of IVF and antiemetics. He continues to complain of abdominal pain and continues with the diffuse abdominal tenderness, mildly worse in the epigastrium. No guarding or rebound. I do not feel that he will make it home and suspect that he will need admission. 1443: Spoke with hospitalist service. Dr. Garcia accepts admission. On re-exam he continues with diffuse abdominal tenderness, no guarding or peritoneal signs. I do not suspect SBO, infection, surgical problem. Labs do not suggest cholecystitis or pancreatitis. Mild elevation in WBC, anion gap-- to be expected with vomiting. Differential diagnoses include cyclic vomiting, gastroenteritis, GERD. - Data Points Laboratory Results: Laboratory Results 05/06/17 04:50 05/06/17 04:50 Medications Given: Discontinued Medications Al Hydroxide/Mg Hydroxide (Maalox Susp) 30 ml PO ONCE ONE Stop: 05/05/17 16:55 Last Admin: 05/05/17 17:22 Dose: Not Given Enoxaparin Sodium (Lovenox) 40 mg SC DAILY [facility] Stop: 11/02/17 08:59 Last Admin: 05/07/17 07:31 Dose: Not Given Hydromorphone HCl (Dilaudid) 0.2 mg IVP Q4HRS PRN PRN Reason: Pain, Severe Unable to Take PO Stop: 05/15/17 15:12 Last Admin: 05/05/17 15:21 Dose: 0.2 mg Hyoscyamine Sulfate (Levsin, Hyomax-Sl) 0.25 mg PO ONCE ONE Stop: 05/05/17 16:55 Last Admin: 05/05/17 17:22 Dose: Not Given Sodium Chloride (Ns) 1,000 mls @ 0 mls/hr IV EDNOW ONE; Wide Open PRN Reason: Protocol Stop: 05/05/17 12:24 Last Admin: 05/05/17 12:30 Dose: 1,000 mls Sodium Chloride (Ns) 1,000 mls @ 125 mls/hr IV CONT CAROL Stop: 11/01/17 15:29 Last Admin: 05/05/17 16:23 Dose: 1,000 mls Lidocaine (Lidocaine 2% Viscous) 15 ml PO ONCE ONE Stop: 05/05/17 16:55 Last Admin: 05/05/17 17:22 Dose: Not Given Ondansetron HCl (Zofran) 4 mg IVP EDNOW ONE Stop: 05/05/17 14:44 Last Admin: 05/05/17 14:44 Dose: 4 mg Ondansetron HCl (Zofran Odt) 4 mg PO Q4HRS PRN PRN Reason: Nausea/Vomiting, Use 1st Stop: 11/01/17 14:46 Last Admin: 05/06/17 12:03 Dose: 4 mg Pantoprazole Sodium (Protonix) 40 mg PO BID CARLO Stop: 11/02/17 11:44 Last Admin: 05/07/17 07:29 Dose: 40 mg Potassium Chloride (Klor-Con) 30 meq PO ONCE ONE PRN Reason: Protocol Stop: 05/06/17 15:09 Last Admin: 05/06/17 15:38 Dose: 30 meq Potassium Chloride (Klor-Con) 10 meq PO ONCE ONE PRN Reason: Protocol Stop: 05/06/17 19:40 Last Admin: 05/06/17 19:44 Dose: 10 meq Promethazine HCl (Phenergan) 25 mg IVP Q6HRS PRN PRN Reason: Nausea/Vomiting, Can't Take PO Stop: 11/01/17 15:12 Last Admin: 05/05/17 15:21 Dose: 25 mg Psyllium Hydrophilic Mucilloid (Metamucil/Konsyl) 1 each PO DAILY CAROL Stop: 11/03/17 10:29 Last Admin: 05/07/17 10:51 Dose: 1 each Senna/Docusate Sodium (Senokot-S) 1 - 2 tab PO BID CAROL PRN Reason: Protocol Stop: 11/03/17 08:59 Last Admin: 05/07/17 07:27 Dose: 2 tab Departure - Departure Disposition: [facility] Inpatient Acute Clinical Impression: Chronic abdominal pain Vomiting Qualifiers: Vomiting type: unspecified Vomiting Intractability: non-intractable Nausea presence: with nausea Qualified Code(s): R11.2 - Nausea with vomiting, unspecified Condition: Fair Report Scribed for: Shima Peña Report Scribed by: Monique Griffin Date of Report: 05/05/17 Time of Report: 12:04 Physician Review and Approval Statement: 05/05/17 12:03 Portions of this note were transcribed by the medical staff physician. I, Dr. Shima Peña, personally performed the history, physical exam, and medical decision- making; and confirmed the accuracy of the information in the transcribed note.
--- NOTE | 2017-05-05 12:15 | CPEKG ---
Heart Rate: 80 RR Interval: 750 P-R Interval: 152 QRSD Interval: 80 QT Interval: 400 QTC Interval: 462 P [place]: 57 QRS [place]: -67 T Wave [place]: 28 EKG Severity - ABNORMAL ECG - EKG Impression: SINUS ARRHYTHMIA, RATE 61-91 EKG Impression: LEFT ANTERIOR FASCICULAR BLOCK Electronically Signed By: Shima Peña 05-May-2017 16:06:35
[2017-05-05] MEDS ORDERED: NS 1,000 ML IV ONE (12:23)
[2017-05-05 12:39] LABS: % IMMATURE GRANULYOCYTES 0.4 % (0.0-1.1); ABSOLUTE IMMATURE GRANULOCYTES 0.05 10^3/uL (0.00-0.10); ADD DIFF? NO; ADD MORPH? NO; ADD SCAN? NO; ATYPICAL LYMPHOCYTE FLAG 0 (0-99); FRAGMENT RBC FLAG 0 (0-99); HEMATOCRIT 50.1 % (40.0-51.0); HEMOGLOBIN 17.7 g/dL (13.7-17.5); LEFT SHIFT FLG 0 (0-99); LIPEMIA HEMOLYSIS FLAG 90 (0-99); MEAN CELL HEMOGLOBIN 32.3 pg (27.9-34.1); MEAN CELL HEMOGLOBIN CONCENTR. 35.3 g/dL (32.4-36.7); MEAN CELL VOLUME 91.4 fL (81.5-99.8); MEAN PLATELET VOLUME 9.7 fL (8.7-11.7); PLATELET CLUMPS FLAG 0 (0-99); PLATELET COUNT 277 10^3/uL (150-400); RED BLOOD CELL COUNT 5.48 10^6/uL (4.40-6.38); RED CELL DISTRIBUTION WIDTH 12.5 % (11.5-15.2)
[2017-05-05 12:45] LABS: ALANINE AMINOTRANSFERASE 27 IU/L (21-72); ALBUMIN 4.9 g/dL (3.5-5.0); ALKALINE PHOSPHATASE 99 IU/L (38-126); ANION GAP 17 mEq/L (8-16); ASPARTATE AMINOTRANSFERASE 22 IU/L (17-59); BILIRUBIN-CONJUGATED 0.4 mg/dL (0.0-0.5); BILIRUBIN-UNCONJUGATED 0.6 mg/dL (0.0-1.1); CALCIUM 10.2 mg/dL (8.5-10.4); CARBON DIOXIDE 20 mEq/l (22-31); CHLORIDE 105 mEq/L (97-110); GLOMERULAR FILTRATION RATE > 60; GLUCOSE 118 mg/dL (70-100); POTASSIUM 3.8 mEq/L (3.5-5.2); SODIUM 142 mEq/L (134-144); TOTAL PROTEIN 8.2 g/dL (6.3-8.2)
[2017-05-05] MEDS ORDERED: ONDANSETRON 4 MG/2 ML VIAL ONE (14:38)
[2017-05-05] MEDS ORDERED: ONDANSETRON 4 MG/2 ML VIAL IVP ONE (14:43)
[2017-05-05] MEDS ORDERED: ONDANSETRON DISINTEGRATING 4 MG TAB PO PRN (14:47)
[2017-05-05] MEDS ORDERED: ONDANSETRON 4 MG/2 ML VIAL IVP PRN (14:47)
[2017-05-05] MEDS ORDERED: ACETAMINOPHEN 325 MG TAB PO PRN (14:47)
[2017-05-05] MEDS ORDERED: HYDROmorphONE/DILAUDID 1 MG/ML INJ IVP PRN (15:13)
[2017-05-05] MEDS ORDERED: PROMETHAZINE HCL 25 MG/ML INJ IVP PRN (15:13)
[2017-05-05] MEDS ORDERED: PROMETHAZINE HCL 25 MG/ML INJ ONE (15:18)
[2017-05-05] MEDS ORDERED: HYDROmorphONE/DILAUDID 1 MG/ML INJ ONE (15:18)
[2017-05-05] MEDS ORDERED: NS 1,000 ML IV SCH (15:30)
--- NOTE | 2017-05-05 15:59 | GHP ---
[f rep st] HISTORY AND PHYSICAL DATE OF ADMISSION: 05/05/2017 CHIEF COMPLAINT: Nausea, vomiting, abdominal pain. HISTORY OF PRESENT ILLNESS: A 61-year-old male with history of daily marijuana use, chronic epigastric abdominal pain, diverticulitis, presenting with abdominal pain, nausea, and vomiting starting this morning. Complained of mid epigastric pain as sharp. He has had 7 prior admissions since 2016 due to similar symptoms that he attributes to diverticulosis. Last admitted January for the same diagnosis and CT was negative for diverticulitis or obstruction. He reports fevers, chills, sweats starting this morning. No diarrhea. Last bowel movement was yesterday. Denies alcohol or chronic pain medications. No ill contacts. REVIEW OF SYSTEMS: I completed a 10-point review of systems, negative except as noted in HPI. PAST MEDICAL HISTORY: 1. Homelessness. 2. Chronic epigastric pain. 3. Depression. 4. History of diverticulosis. 5. History of diverticulitis. PAST SURGICAL HISTORY: Benign right hip mass resection (negative for malignancy ), knee surgery. ALLERGIES: No known drug allergies. MEDICATIONS: None. FAMILY HISTORY: No diabetes or CAD. SOCIAL HISTORY: He is homeless in [place]. Denies tobacco or alcohol. Smokes marijuana several times daily. PHYSICAL EXAMINATION: VITAL SIGNS: Temperature 36.5, blood pressure 158/118, heart rate in the 90s, respiration 21, 100% on room air. GENERAL: He is hunched over, rocking back and forth, uncomfortable. HEENT: PERRLA. EOMI. Mildly dry mucous membranes. CV: Regular. No murmurs, gallops, or rubs. LUNGS: Clear to auscultation bilaterally. ABDOMEN: Soft, nondistended. Epigastric tenderness. No guarding or rebound. Positive bowel sounds. : No suprapubic tenderness. MUSCULOSKELETAL: 5/5 upper and lower extremity strength. NEURO: 2-12 intact. PSYCH: Alert and oriented x3, agitated. LABORATORY DATA: WBC 11, hemoglobin 17, hematocrit 50, platelets 227. Sodium 142, potassium 3.8, chloride 105, carbon dioxide 20, anion gap 17, glucose 118. LFTs within normal. Lipase 57. DIAGNOSTIC STUDIES: EKG, personally reviewed by me, sinus arrhythmia, heart rate is in the 80s. ASSESSMENT AND PLAN: 1. Acute nausea, vomiting, epigastric pain: differential includes chronic cyclic vomiting associated with THC, gastroesophageal reflux disease, gastroenteritis. No peritoneal signs on exam. LFTs and lipase normal. Denies diarrhea. Minimal elevation of WBC. Check a lactate and an abdominal x-ray. IVFs, p.r.n. antiemetics and and low-dose pain meds. 2. Mild leukocytosis: due to nausea and vomiting. Afebrile. Repeat in the morning. 3. Anion gap metabolic acidosis: This is likely secondary to dehydration with nausea and vomiting. 4. Diet: Clears. 5. Deep venous thrombosis prophylaxis: Lovenox. 6. Disposition: Patient warrants observation admission given intractable nausea and vomiting, requiring intravenous fluids, antiemetics, and pain medications. /[id number]/MODL MTDD
[2017-05-05] MEDS ORDERED: MAG HYDROX/AL HYDROX/SIMETH 30 ML UDCUP PO ONE (16:54)
[2017-05-05] MEDS ORDERED: LIDOCAINE 2% VISCOUS 15 ML UDCUP PO ONE (16:54)
[2017-05-05] MEDS ORDERED: HYOSCYAMINE SULFATE 0.125 MG TAB PO ONE (16:54)
[2017-05-06 05:04] LABS: HEMOGLOBIN 14.1 g/dL (13.7-17.5); MEAN CELL HEMOGLOBIN 32.6 pg (27.9-34.1); MEAN CELL HEMOGLOBIN CONCENTR. 35.3 g/dL (32.4-36.7); MEAN CELL VOLUME 92.6 fL (81.5-99.8); RED BLOOD CELL COUNT 4.32 10^6/uL (4.40-6.38); RED CELL DISTRIBUTION WIDTH 13.2 % (11.5-15.2)
[2017-05-06 05:17] LABS: ANION GAP 7 mEq/L (8-16); CALCIUM 9.1 mg/dL (8.5-10.4); CARBON DIOXIDE 23 mEq/l (22-31); CHLORIDE 109 mEq/L (97-110); CREATININE 0.9 mg/dL (0.7-1.3); GLOMERULAR FILTRATION RATE > 60; GLUCOSE 102 mg/dL (70-100); POTASSIUM 3.4 mEq/L (3.5-5.2); SODIUM 139 mEq/L (134-144)
[2017-05-06] MEDS: ENOXAPARIN 40 MG/0.4 ML SYR SC SCH (09:06)
--- NOTE | 2017-05-06 11:18 | HOSPPROG ---
Hospitalist Progress Note Assessment/Plan: Patient is a 61-year-old male who has daily use of marijuana, chronic epigastric abdominal pain who presented with abdominal pain nausea and vomiting that started earlier in the morning yesterday. Today is my 1st encounter with the patient. Chart reviewed. * Abdominal pain x-ray shows nothing acute suspect strong chronic cannabis use liver function tests are stable tolerating clears well will advance his diet * leukocytosis resolved * anion gap metabolic acidosis improving *hypokalemia will give oral k *homelessness wants to live in his car has family members in the area but doesn't want to impose on them *Plan: will see if he can eat and drink / if able to do so, will dc later Subjective: Celso says he is feeling extremely weak and is unsure if he is strong enough for dc. Objective: Vital Signs Temp Pulse Resp BP Pulse Ox 37.2 C 63 16 115/67 93 05/06/17 08:00 05/06/17 08:00 05/06/17 08:00 05/06/17 08:00 05/06/17 08:00 Laboratory Results 05/06/17 04:50 05/06/17 04:50 05/05/17 05/06/17 05/07/17 05:59 05:59 05:59 Intake Total 1950 Output Total 900 Balance 1050 - Physical Exam Constitutional: uncomfortable, unkempt Eyes: PERRL Ears, Nose, Mouth, Throat: hearing normal Cardiovascular: regular rate and rhythym Respiratory: no respiratory distress Gastrointestinal: normoactive bowel sounds, tenderness (epigastric area) Skin: warm Musculoskeletal: full muscle strength Neurologic: AAOx3 Psychiatric: interacting appropriately ICD10 Worksheet Patient Problems: Problems Problem Status Onset Chronic abdominal pain Acute Vomiting Acute Abdominal pain Acute Abdominal pain Acute Cyclic vomiting syndrome Acute Dehydration Acute Nausea & vomiting Acute Sigmoid diverticulitis Acute
[2017-05-06] MEDS ORDERED: PROTOCOL POTASSIUM 1 DOSE MISC PRN (11:35)
[2017-05-06] MEDS: PANTOPRAZOLE SODIUM 40 MG TAB PO SCH ×2 (12:03→19:44)
--- NOTE | 2017-05-06 12:04 | ASMTCMCOM ---
CM Note CM Note Notes: Pt lives out of car. D/W dc poc w/hospitalist who offered pt resources and he did not feel he needed any. Anticipate he will return to living out of car when dc'd from hosp. D/W RN. Date Signed: 05/06/2017 12:04 PM Electronically Signed By:Leslee Hawley RN
[2017-05-06] MEDS ORDERED: POTASSIUM CL 10 MEQ TAB PO ONE ×2 (15:08→19:39)
[2017-05-06 18:21] LABS: POTASSIUM 3.8 mEq/L (3.5-5.2)
[2017-05-06 19:33] VITALS: O2SAT 94
[2017-05-07 05:17] LABS: ANION GAP 11 mEq/L (8-16); CALCIUM 8.9 mg/dL (8.5-10.4); CARBON DIOXIDE 22 mEq/l (22-31); CHLORIDE 108 mEq/L (97-110); CREATININE 0.9 mg/dL (0.7-1.3); GLOMERULAR FILTRATION RATE > 60; GLUCOSE 89 mg/dL (70-100); POTASSIUM 4.1 mEq/L (3.5-5.2); SODIUM 141 mEq/L (134-144)
[2017-05-07] MEDS ORDERED: POLYETHYLENE GLYCOL 3350 17 GM PKT PO PRN (06:37)
[2017-05-07] MEDS ORDERED: LACTULOSE 20 GM/30 ML UDCUP PO PRN (06:37)
[2017-05-07] MEDS ORDERED: MAGNESIUM HYDROXIDE 30 ML UDCUP PO PRN (06:37)
[2017-05-07] MEDS ORDERED: BISACODYL 10 MG SUPP PR PRN (06:37)
[2017-05-07] MEDS: PANTOPRAZOLE SODIUM 40 MG TAB PO SCH (07:29)
[2017-05-07] MEDS: ENOXAPARIN 40 MG/0.4 ML SYR SC SCH (07:31)
[2017-05-07 07:54] VITALS: BP 114/75; PULSE 60; RESP 16; TEMP 98.7
[2017-05-07] MEDS ORDERED: SENNOSIDES/DOCUSATE SODIUM TAB PO SCH (09:00)
[2017-05-07] MEDS ORDERED: PSYLLIUM METAMUCIL 1 PKT PO SCH (10:30)
--- NOTE | 2017-05-07 10:40 | ASMTCMCOM ---
CM Note CM Note Notes: Today SWer met w/ Pt. alone in room. Upon SW questioning, Pt. states he does not need any resources. Pt. does not want SWer to make [facility] appt. for him. Plans to d/c and then go to his car in [facility]. Thought friends could come get him. Later in am, RN states Pt. needs bus pass - friends cannot come until 14:00. Pt. to d/c today independently. Date Signed: 05/07/2017 10:39 AM Electronically Signed By:Mattie Sanches LCSW
--- NOTE | 2017-05-07 15:01 | ASDISCHSUM ---
Discharge Information Plan Status:Home with No Needs Medically Cleared to Leave: Discharge Date:05/07/2017 12:21 PM CM D/C Disposition:Home, Routine, Self-Care ADT D/C Disposition:Home, Routine, Self-Care Projected Discharge Date:05/07/2017 12:21 PM Transportation at D/C:Self Discharge Delay Reason: Follow-Up Date:05/07/2017 12:21 PM Discharge Slot: Final Diagnosis: Placement Information Patient Contact Information Contact Name:DES Relationship:Other Address: Work Phone: City: [facility] Phone: State/Zip Code: Email: Financial Information Financial Class: Primary Plan Desc:[facility] [place] IP Primary Plan Number:[id number] Secondary Plan Desc: Secondary Plan Number: Assessment Information [facility] Progress Note CM Note CM Note Notes: Pt lives out of car. D/W dc poc w/hospitalist who offered pt resources and he did not feel he needed any. Anticipate he will return to living out of car when dc'd from hosp. D/W RN. Date Signed: 05/06/2017 12:04 PM Electronically Signed By:Leslee Hawley RN [facility] CM Progress Note CM Note CM Note Notes: Today SWer met w/ Pt. alone in room. Upon SW questioning, Pt. states he does not need any resources. Pt. does not want SWer to make [facility] appt. for him. Plans to d/c and then go to his car in [facility]. Thought friends could come get him. Later in am, RN states Pt. needs bus pass - friends cannot come until 14:00. Pt. to d/c today independently. Date Signed: 05/07/2017 10:39 AM Electronically Signed By:Mattie Sanches LCSW Intervention Information
--- NOTE | 2017-05-07 16:16 | GDS ---
[f rep st] DISCHARGE SUMMARY DISCHARGE DIAGNOSES: 1. Abdominal pain. 2. Leukocytosis. 3. Anion gap metabolic acidosis. 4. Hypokalemia. 5. Homelessness. PHYSICAL EXAM: GENERAL: The patient is alert. VITAL SIGNS: Afebrile at 37.1, pulse is 60, respira tory rate 16, blood pressure is 114/75, he is saturating 94% on room air. I have seen and evaluated the patient on the day of discharge. HOSPITAL COURSE: The patient is a 61-year-old male who suffers from chronic epigastric pain. He pre sented to the emergency room with complaints of abdominal pain. He was evaluated and diagnosed with: 1. Acute on chronic abdominal pain. During this hospitalization, no identifiable source was found f or his abdominal pain. This is a chronic for the patient, and he does not follow up in the outpatien t setting as instructed. His abdominal pain is stable today. He is tolerating a regular diet and wi ll follow up as he sees fit. 2. Leukocytosis. This is resolved. 3. Anion gap metabolic acidosis. This has resolved. Hydration was an assistance for the patient. 4. Hypokalemia. He received replacement. 5. Chronic and aggressive marijuana use. I have educated the patient that he should likely cut back on his marijuana ingestion. He is not interested in this. 6. Homelessness. The patient lives in his car. He has been offered resources but does not wish to have any. He does have family members that live in the community and does not wish to reside with [facility] [place]. DISPOSITION: The patient will be discharged to his car. I reviewed his chart with wrapper caser. Amber lucas will be at the patient's discretion. There are no pending studies. DISCHARGE MEDICATIONS: Please refer to EMR form. I have not provided any prescriptions for the arminda ent at the time of disposition. TIME SPENT: I spent greater than 35 minutes in the care, coordination, and management of this patien t's discharge. /[id number]/MODL
== END 2017-05-07 12:21 | disposition home or self-care (01) | DRG 392 ==
LOC: EDUNIT# → F3E 16:11 → OBSVTOIN 05-06 14:35
PROVIDERS: ADMIT Internal Medicine; ATTEND Internal Medicine
DX: R10.13 Epigastric pain (principal); D72.829 Elevated white blood cell count, unspecified; E87.2 Acidosis; E87.6 Hypokalemia; F12.90 Cannabis use, unspecified, uncomplicated; Z59.0 Homelessness; I10 Essential (primary) hypertension; F32.9 Major depressive disorder, single episode, unspecified
CPT/HCPCS: G0378; J1170; J1650; J2405; J2550

== ENCOUNTER 2017-08-03 09:45 | Observation (INO) | payer MEDICAID ==
--- NOTE | 2017-08-03 10:44 | EDPHY ---
H & P Stated Complaint: Recurrence of abd pain,n/v;Denies constipation;recent marijuana use Time Seen by Provider: 08/03/17 10:40 HPI/ROS: CHIEF COMPLAINT: Abdominal pain HISTORY OF PRESENT ILLNESS: The patient is a 62 y/o male with a history of diverticulosis complaining of abdominal pain and vomiting, onset 6:00 AM this morning, 5 hours ago. He reports vomiting every half hour. He has associated hot flashes. He denies diarrhea, fever, or other associated symptoms. His last bowel movement was this morning. He reports this is similar to his last visit. He denies marijuana use in the last two days. REVIEW OF SYSTEMS: A ten point review of systems was performed and is negative with the exception of the items mentioned in the HPI. Past medical history: 1. Diverticulosis 2. Hypertension Past surgical history: 1. Benign right hip mass resection Past medical records reviewed including 05/06/17 ED visit. Family history: Non-contributory Social history: Nonsmoker, marijuana use, lives in vehicle General Appearance: Alert. Vital signs reviewed. * Eyes: Pupils equal and round, no conjunctival injection, no discharge. Anicteric. ENT, Mouth: Mucous membranes are moist, no oropharyngeal erythema or edema. Neck: No lymphadenopathy, supple. Respiratory: Lungs are clear to auscultation; no wheezes, rales, or rhonchi. Cardiovascular: Regular rate and rhythm; no murmur, rub, or gallop. Gastrointestinal: Diffuse tenderness, no guarding, abdomen is soft, no masses or organomegaly, bowel sounds normal. Skin: Warm and dry, no rashes on exposed skin, normal color. Back: Nontender to palpation over the thoracolumbar spine. No CVAT. Extremities: No lower extremity edema, no calf tenderness or swelling. Neurological: Alert and oriented. Moving all four extremities easily and equally. Psychiatric: Normal affect. - Personal History Current Tetanus Diphtheria and Acellular Pertussis (TDAP): Yes Tetanus Vaccine Date: < 10 YEARS - Medical/Surgical History Hx Asthma: No Hx Chronic Respiratory Disease: No Hx Diabetes: No Hx Cardiac Disease: No Hx Renal Disease: No Hx Cirrhosis: No Hx Alcoholism: No Hx HIV/AIDS: No Hx Splenectomy or Spleen Trauma: No Other PMH: diverticulitis, Lt ACL SURGERY, tumor right hip;Hepatitis marijuana use - Social History Smoking Status: Never smoked Constitutional: Initial Vital Signs Temperature (C) 36.4 C 08/03/17 09:47 Heart Rate 92 08/03/17 09:47 Respiratory Rate 24 H 08/03/17 09:47 Blood Pressure 118/88 H 08/03/17 09:47 O2 Sat (%) 98 08/03/17 09:47 O2 Delivery Mode Room Air O2 (L/minute) 2 Allergies/Adverse Reactions: Penicillins Allergy (Mild, Verified 08/03/17 09:47) Rash Medical Decision Making ED Course/Re-evaluation: The patient reported that his treatment the last time he was here worked well for his symptoms. I looked up the previous orders (Dilaudid and Zofran) and repeated them. He did not improve. He continued to have abdominal pain and vomited bile several more time. I tried a couple different combinations of medication (Phenergan, hydrocodone, haloperidol). The patient continues to feel ill on reassessments. I asked him how he treats his symptoms at home. He says he uses ice and sleep to soothe his symptoms. He continues to have pain and nausea. I will consults with the hospitalist service regarding admission. He has not vomited since the Zofran and Dilaudid. I will consult with the hospitalist service for admission for this patient. I do not feel that imaging is necessary for this patient as he has an extensive history making me think this is cyclic vomiting. The hospitalist agrees to this course of action. - Data Points Laboratory Results: Laboratory Results 08/03/17 10:17 08/03/17 10:17 08/03/17 08/03/17 10:17 10:17 WBC 9.56 10^3/uL H 10^3/uL (3.80-9.50) RBC 5.24 10^6/uL 10^6/uL (4.40-6.38) Hgb 17.2 g/dL g/dL (13.7-17.5) Hct 47.3 % % (40.0-51.0) MCV 90.3 fL fL (81.5-99.8) MCH 32.8 pg pg (27.9-34.1) MCHC 36.4 g/dL g/dL (32.4-36.7) RDW 12.4 % % (11.5-15.2) Plt Count 242 10^3/uL 10^3/uL (150-400) MPV 9.3 fL fL (8.7-11.7) Neut % (Auto) 82.6 % H % (39.3-74.2) Lymph % (Auto) 12.3 % L % (15.0-45.0) [place] % (Auto) 4.3 % L % (4.5-13.0) Eos % (Auto) 0.1 % L % (0.6-7.6) Baso % (Auto) 0.5 % % (0.3-1.7) Nucleat RBC Rel Count 0.0 % % (0.0-0.2) Absolute Neuts (auto) 7.89 10^3/uL H 10^3/uL (1.70-6.50) Absolute Lymphs (auto) 1.18 10^3/uL 10^3/uL (1.00-3.00) Absolute Monos (auto) 0.41 10^3/uL 10^3/uL (0.30-0.80) Absolute Eos (auto) 0.01 10^3/uL L 10^3/uL (0.03-0.40) Absolute Basos (auto) 0.05 10^3/uL 10^3/uL (0.02-0.10) Absolute Nucleated RBC 0.00 10^3/uL 10^3/uL (0-0.01) Immature Gran % 0.2 % % (0.0-1.1) Immature Gran # 0.02 10^3/uL 10^3/uL (0.00-0.10) Sodium 143 mEq/L mEq/L (134-144) Potassium 3.4 mEq/L L mEq/L (3.5-5.2) Chloride 106 mEq/L mEq/L (97-110) Carbon Dioxide 21 mEq/l L mEq/l (22-31) Anion Gap 16 mEq/L mEq/L (8-16) BUN 18 mg/dL mg/dL (7-23) Creatinine 1.1 mg/dL mg/dL (0.7-1.3) Estimated GFR > 60 Glucose 145 mg/dL H mg/dL (70-100) Calcium 10.2 mg/dL mg/dL (8.5-10.4) Total Bilirubin 0.8 mg/dL mg/dL (0.1-1.4) Conjugated Bilirubin 0.3 mg/dL mg/dL (0.0-0.5) Unconjugated Bilirubin 0.5 mg/dL mg/dL (0.0-1.1) AST 24 IU/L IU/L (17-59) ALT 33 IU/L IU/L (21-72) Alkaline Phosphatase 87 IU/L IU/L (38-126) Total Protein 7.5 g/dL g/dL (6.3-8.2) Albumin 4.4 g/dL g/dL (3.5-5.0) Lipase 62 IU/L IU/L (23-300) Medications Given: Discontinued Medications Haloperidol Lactate (Haldol Injection) 2.5 mg IVP EDNOW ONE Stop: 08/03/17 10:57 Last Admin: 08/03/17 11:05 Dose: 2.5 mg Hydromorphone HCl (Dilaudid) 1 mg IVP EDNOW ONE Stop: 08/03/17 12:28 Last Admin: 08/03/17 12:30 Dose: 1 mg Sodium Chloride (Ns) 1,000 mls @ 0 mls/hr IV EDNOW ONE; Wide Open PRN Reason: Protocol Stop: 08/03/17 10:57 Last Admin: 08/03/17 11:04 Dose: 1,000 mls Sodium Chloride (Ns) 1,000 mls @ 0 mls/hr IV ONCE ONE PRN Reason: Wide Open Stop: 08/03/17 11:49 Last Admin: 08/03/17 11:50 Dose: 1,000 mls Ondansetron HCl (Zofran) 4 mg IVP EDNOW ONE Stop: 08/03/17 12:28 Last Admin: 08/03/17 12:30 Dose: 4 mg Departure - Departure Disposition: [facility] Inpatient Acute Clinical Impression: Nausea Vomiting Qualifiers: Vomiting type: unspecified Vomiting Intractability: non-intractable Nausea presence: with nausea Qualified Code(s): R11.2 - Nausea with vomiting, unspecified Abdominal pain Qualifiers: Abdominal location: generalized Qualified Code(s): R10.84 - Generalized abdominal pain Condition: Fair Referrals: Olga King PA [Primary Care Provider] - As per Instructions Physician Review and Approval Statement: 08/03/17 10:44 Portions of this note were transcribed by the center medical and lab director. I, Dr. Shima Peña, personally performed the history, physical exam, and medical decision- making; and confirmed the accuracy of the information in the transcribed note.
[2017-08-03] MEDS ORDERED: NS 1,000 ML IV ONE ×2 (10:56→11:48)
[2017-08-03] MEDS ORDERED: HALOPERIDOL LACT 5 MG/ML INJ IVP ONE (10:56)
[2017-08-03 11:05] LABS: % IMMATURE GRANULYOCYTES 0.2 % (0.0-1.1); ABSOLUTE IMMATURE GRANULOCYTES 0.02 10^3/uL (0.00-0.10); ADD DIFF? NO; ADD MORPH? NO; ADD SCAN? NO; ATYPICAL LYMPHOCYTE FLAG 0 (0-99); FRAGMENT RBC FLAG 0 (0-99); HEMATOCRIT 47.3 % (40.0-51.0); HEMOGLOBIN 17.2 g/dL (13.7-17.5); LEFT SHIFT FLG 0 (0-99); LIPEMIA HEMOLYSIS FLAG 90 (0-99); MEAN CELL HEMOGLOBIN 32.8 pg (27.9-34.1); MEAN CELL HEMOGLOBIN CONCENTR. 36.4 g/dL (32.4-36.7); MEAN CELL VOLUME 90.3 fL (81.5-99.8); MEAN PLATELET VOLUME 9.3 fL (8.7-11.7); PLATELET CLUMPS FLAG 0 (0-99); PLATELET COUNT 242 10^3/uL (150-400); RED BLOOD CELL COUNT 5.24 10^6/uL (4.40-6.38); RED CELL DISTRIBUTION WIDTH 12.4 % (11.5-15.2)
[2017-08-03 11:09] LABS: ALANINE AMINOTRANSFERASE 33 IU/L (21-72); ALBUMIN 4.4 g/dL (3.5-5.0); ALKALINE PHOSPHATASE 87 IU/L (38-126); ANION GAP 16 mEq/L (8-16); ASPARTATE AMINOTRANSFERASE 24 IU/L (17-59); BILIRUBIN,TOTAL 0.8 mg/dL (0.1-1.4); BILIRUBIN-CONJUGATED 0.3 mg/dL (0.0-0.5); BILIRUBIN-UNCONJUGATED 0.5 mg/dL (0.0-1.1); CALCIUM 10.2 mg/dL (8.5-10.4); CARBON DIOXIDE 21 mEq/l (22-31); CHLORIDE 106 mEq/L (97-110); CREATININE 1.1 mg/dL (0.7-1.3); GLOMERULAR FILTRATION RATE > 60; GLUCOSE 145 mg/dL (70-100); POTASSIUM 3.4 mEq/L (3.5-5.2); SODIUM 143 mEq/L (134-144); TOTAL PROTEIN 7.5 g/dL (6.3-8.2)
[2017-08-03] MEDS ORDERED: HYDROmorphONE/DILAUDID 1 MG/ML INJ IVP ONE (12:27)
[2017-08-03] MEDS ORDERED: ONDANSETRON 4 MG/2 ML VIAL IVP ONE (12:27)
[2017-08-03] MEDS ORDERED: ONDANSETRON 4 MG/2 ML VIAL ONE (12:28)
[2017-08-03] MEDS ORDERED: HYDROmorphONE/DILAUDID 1 MG/ML INJ ONE (12:29)
[2017-08-03] MEDS ORDERED: HYDROCOD/APAP 5/325 PREPACK#6 BTL TAKEHOME ONE (13:42)
[2017-08-03] MEDS ORDERED: PROMETHAZINE HCL 25 MG/ML INJ IVP ONE (14:28)
[2017-08-03] MEDS: NS 1,000 ML IV SCH (14:33)
[2017-08-03] MEDS ORDERED: ACETAMINOPHEN 325 MG TAB PO PRN (15:57)
[2017-08-03] MEDS ORDERED: PROMETHAZINE HCL 25 MG/ML INJ IVP PRN (15:57)
[2017-08-03] MEDS ORDERED: LORazepam 2 MG/ML INJ IVP PRN (15:57)
[2017-08-03] MEDS ORDERED: NS W/ 20 KCl/L 1,000 ML IV SCH (17:00)
--- NOTE | 2017-08-03 17:51 | GHP ---
[f rep st] HISTORY AND PHYSICAL DATE OF ADMISSION: 08/03/2017 PRIMARY CARE PROVIDER: [facility]. CHIEF COMPLAINT: Vomiting. HISTORY OF PRESENT ILLNESS: Patient is a 62-year-old gentleman with a past medical history of divert iculitis and frequent cannabinoid use, who presented to the [facility] Emergency Room on 08/03/2017 after developing epigastric discomfort associated with nausea and recurrent vomiting. He has been evaluated previously at [facility] and felt to potentially have a cannab inoid hyperemesis syndrome. He is not having any left-sided abdominal symptoms. There have been no fevers noted. In the emergency room, he was treated with Haldol as well as Dilaudid for his epigastr ic discomfort which has been helpful for his symptoms. He did not display any nausea or discomfort a t the time of my evaluation. PAST MEDICAL HISTORY: 1. Diverticulosis with prior diverticulitis. 2. Depression, currently untreated. 3. Osteoarthritis. PAST SURGICAL HISTORY: 1. Right hip mass resection by Dr. José Miguel Wagner. 2. Right knee arthroscopic surgery. CURRENT ALLERGIES: None. ALLERGIES: Penicillin, which causes a rash. SOCIAL HISTORY: Patient is currently homeless. He lives in a mobile home. He does cite frequent ma rijuana use. He states he does not use it daily, but most days of the week. He is previously marrie d and currently. He has 3 children, 2 sons and 1 daughter. 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 The veterans contact representative or power of trade mark attorney would be his e x- or his son who lives in [place]. CODE STATUS: Reviewed and he is a full code status. FAMILY HISTORY: Dad secondary to complications from alcohol abuse. Mother is . She di ed from Alzheimer's dementia. REVIEW OF SYMPTOMS: CONSTITUTIONAL: No complaints of any fevers or chills. ENT: No recent upper res piratory illnesses. CARDIOVASCULAR: No complaints of chest pains, palpitations or syncopal episodes. RESPIRATORY: No complaints of shortness of breath or productive cough. GI: Positive for epigastric discomfort with nausea and vomiting. No diarrhea. No bloody stools or black stools. : No report of any difficulty with urination. NEUROLOGIC: No complaints of headaches or focal weakness. HEMATOLO GIC: No history of any deep vein thrombosis or pulmonary embolism. PSYCHIATRIC: Patient has a prior h istory of depression, which was previously treated, but currently not on any medical therapy. ENDOCRI NE: No history of diabetes or thyroid abnormality. SKIN: No noted new skin rashes. MUSCULOSKELETAL: No focal joint pains other than his hand, which he states is chronically uncomfortable for him second breanna to suspected osteoarthritis. PHYSICAL EXAM: VITAL SIGNS: Temperature 37, blood pressure 155/108, heart rate 79, respirations 16, saturating 99% on room air. GENERAL: Patient appears comfortable. He is awake, alert, conversant, ab le to write a good history. HEENT: Extraocular movements intact. No scleral icterus is noted. Muc ous membranes dry. NECK: No thyroid enlargement. Supple. No adenopathy. CHEST: Clear to auscult ation with normal respiratory effort. HEART: Regular, no murmurs. ABDOMEN: Soft, nontender, nondis tended. Normal bowel sounds. Specifically, no discomfort with deep palpation of the left lower quad rant as well as the epigastrium. : No Millard catheter in place. EXTREMITIES: No significant pittin g edema. NEUROLOGIC: Cranial nerves 2-12 appear to be intact. Strength 5/5 in all extremities. LABS: White blood cell count is 9, hemoglobin 17, platelets 242. Sodium 143, potassium 3.4, chlorid e 106, bicarb 21, BUN 18, creatinine 1.1, glucose 145. Liver function tests are within normal limits . Lipase is normal at 62. ASSESSMENT/PLAN: 1. Nausea and vomiting. This very well could be cannabinoid hyperemesis syndrome. I did ask him ab out taking showers, but he does not have access essentially to a shower as he is homeless. We discus sed tonight that if he has any worsening symptoms that I would recommend trying a hot shower to see i f this abates any of his symptoms. I think this would be helpful to know if it does help as it would be suggestive of cannabinoid hyperemesis syndrome. If it is not helpful, then possibly he has some other abdominal process going on at this point in time. Otherwise, continue with Phenergan as needed for now. Haldol could also be considered as well. This was helpful in the emergency room. 2. Abdominal pain. No pain on physical exam, but he has had an epigastric discomfort. We will use IV Pepcid overnight. 3. Hypokalemia. Replace p.o. as long as he is tolerating oral diet. 4. Metabolic acidosis. May be related to his emesis. Normal saline x1 L then we will stop thereaft er, reassess tomorrow morning with labs. 5. Osteoarthritis. Likely cause of pain. I encouraged him to try glucosamine chondroitin once his current symptoms resolve to see if this may help his chronic osteoarthritis. 6. Bowel and bladder. Consider bowel regimen if constipation develops. 7. DVT prophylaxis, Lovenox 40 mg daily. DISPOSITION: I will admit him under observation status. /[id number]/MODL
[2017-08-03] MEDS: FAMOTIDINE 20 MG/NACL 50 ML IV SCH (20:52)
[2017-08-03 22:44] VITALS: RESP 16
[2017-08-04] MEDS: NS 1,000 ML IV SCH ×2 (02:19→07:30)
[2017-08-04 05:10] LABS: % IMMATURE GRANULYOCYTES 0.3 % (0.0-1.1); ABSOLUTE IMMATURE GRANULOCYTES 0.03 10^3/uL (0.00-0.10); ADD DIFF? NO; ADD MORPH? NO; ADD SCAN? NO; ATYPICAL LYMPHOCYTE FLAG 0 (0-99); FRAGMENT RBC FLAG 0 (0-99); HEMATOCRIT 38.1 % (40.0-51.0); HEMOGLOBIN 13.2 g/dL (13.7-17.5); LEFT SHIFT FLG 0 (0-99); LIPEMIA HEMOLYSIS FLAG 90 (0-99); MEAN CELL HEMOGLOBIN 32.6 pg (27.9-34.1); MEAN CELL HEMOGLOBIN CONCENTR. 34.6 g/dL (32.4-36.7); MEAN CELL VOLUME 94.1 fL (81.5-99.8); MEAN PLATELET VOLUME 9.6 fL (8.7-11.7); PLATELET CLUMPS FLAG 0 (0-99); PLATELET COUNT 170 10^3/uL (150-400); RED BLOOD CELL COUNT 4.05 10^6/uL (4.40-6.38); RED CELL DISTRIBUTION WIDTH 13.2 % (11.5-15.2)
[2017-08-04 05:30] LABS: ALANINE AMINOTRANSFERASE 28 IU/L (21-72); ALBUMIN 2.7 g/dL (3.5-5.0); ALKALINE PHOSPHATASE 50 IU/L (38-126); ANION GAP 11 mEq/L (8-16); ASPARTATE AMINOTRANSFERASE 15 IU/L (17-59); BILIRUBIN,TOTAL 0.5 mg/dL (0.1-1.4); CALCIUM 7.9 mg/dL (8.5-10.4); CARBON DIOXIDE 22 mEq/l (22-31); CHLORIDE 114 mEq/L (97-110); CREATININE 0.9 mg/dL (0.7-1.3); GLOMERULAR FILTRATION RATE > 60; GLUCOSE 84 mg/dL (70-100); MAGNESIUM 1.6 mg/dL (1.6-2.3); POTASSIUM 3.7 mEq/L (3.5-5.2); SODIUM 147 mEq/L (134-144)
[2017-08-04 08:27] VITALS: BP 101/71; PULSE 64; TEMP 98.2; O2SAT 93
[2017-08-04] MEDS ORDERED: POTASSIUM CL 20 MEQ/15 ML UDCUP PO SCH (09:00)
[2017-08-04] MEDS ORDERED: GLUCOSAMINE/CHONDROITIN CAP PO SCH (09:00)
[2017-08-04] MEDS ORDERED: ENOXAPARIN 40 MG/0.4 ML SYR SC SCH (09:00)
[2017-08-04] MEDS: FAMOTIDINE 20 MG/NACL 50 ML IV SCH (09:31)
--- NOTE | 2017-08-04 14:14 | GDS ---
[f rep st] DISCHARGE SUMMARY DISCHARGE DIAGNOSES: 1. Nausea and vomiting. 2. Abdominal pain. 3. Hypokalemia. 4. Metabolic acidosis. PHYSICAL EXAM: GENERAL: The patient is alert. VITAL SIGNS: Afebrile at 36.8, pulse 64, respirator y rate 16. Blood pressure is 101/71. He is saturating greater than 90% on room air. I have seen an d evaluated the patient on the day of discharge. HOSPITAL COURSE: The patient is a 62-year-old male who has been admitted to the hospital on several occasions secondary to cyclic nausea and vomiting. He was admitted secondary to this on 08/03/2017. It was suspected that he has cannabinoid hyperemesis syndrome. However, the patient is reluctant to accept this diagnosis. His symptoms have completely resolved. He has no further nausea or vomiting . His abdominal pain has resolved. He is tolerating a regular diet. I have educated him that poten tially his cannabis use is causing these recurring cyclic vomiting syndromes. He does not feel that this is the case. He will be discharged home. There are no pending studies. Followup will be with the primary care physician, Olga King. I have not provided any prescriptions at the time of disposit ion as the patient is stating he does not wish to have any. /[id number]/MODL
--- NOTE | 2017-08-04 14:23 | ASDISCHSUM ---
Discharge Information Plan Status:Homeless/Halfway Medically Cleared to Leave: Discharge Date:08/04/2017 02:09 PM CM D/C Disposition:Home, Routine, Self-Care ADT D/C Disposition:Home, Routine, Self-Care Projected Discharge Date:08/04/2017 02:09 PM Transportation at D/C:Bus Ticket Discharge Delay Reason: Follow-Up Date:08/04/2017 02:09 PM Discharge Slot: Final Diagnosis: Placement Information Patient Contact Information Contact Name:DES Relationship:Other Address: Work Phone: City: [facility] Phone: State/Zip Code: Email: Financial Information Financial Class: Primary Plan Desc:MEDICAID HEALTH [employer]OVERY [employer]PER[employer] Primary Plan Number:[id number] Secondary Plan Desc: Secondary Plan Number: Assessment Information LACE LACE Length of stay for Answers: Less than 1 day current admission Acuity / Level of Care Answers: Was the patient admitted to hospital via the emergency department? Yes: Emergency dept visits in Answers: 3 last 6 months Score: 6 Date Signed: 08/03/2017 12:38 PM Electronically Signed By:Lonnie Castanon LCSW Intervention Information
== END 2017-08-04 14:09 | disposition home or self-care (01) ==
LOC: F3E 15:53
PROVIDERS: ADMIT Internal Medicine; ATTEND Internal Medicine
DX: R11.2 Nausea with vomiting, unspecified (principal); R10.9 Unspecified abdominal pain; E87.6 Hypokalemia; E87.2 Acidosis; F12.10 Cannabis abuse, uncomplicated; M19.90 Unspecified osteoarthritis, unspecified site; F32.9 Major depressive disorder, single episode, unspecified; I10 Essential (primary) hypertension; Z88.0 Allergy status to penicillin; Z59.0 Homelessness
CPT/HCPCS: G0378 ×2; J1170; J1630; J1650; J2405; J2550

== ENCOUNTER 2018-01-20 15:41 | Emergency (ER) | payer MEDICAID ==
[2018-01-20] MEDS ORDERED: ONDANSETRON 4 MG/2 ML VIAL IVP ONE (16:30)
[2018-01-20] MEDS ORDERED: NS 1,000 ML IV ONE ×3 (16:30→17:32)
[2018-01-20] MEDS ORDERED: METOCLOPRAMIDE 10 MG/2 ML VIAL IVP ONE (16:39)
[2018-01-20] MEDS ORDERED: HALOPERIDOL LACT 5 MG/ML INJ IVP ONE (16:39)
--- NOTE | 2018-01-20 16:42 | EDPHY ---
H & P Time Seen by Provider: 01/20/18 16:27 HPI/ROS: CHIEF COMPLAINT: Nausea and vomiting HISTORY OF PRESENT ILLNESS: Patient has multiple previous admissions for nausea and vomiting, most recent admission in July of last year personally reviewed. Patient states he has not used any marijuana since this past weekend. He says symptoms started this morning at 9:00 a.m. And multiple episodes of severe nausea and vomiting associated with severe abdominal pain. Worse with any oral intake. Associated with anxiety and hyperventilation. No diarrhea and no recent injury or trauma or fall. No urinary or male symptoms. REVIEW OF SYSTEMS: Eye: no change in vision ENT: no sore throat Cardiac: no chest pain or syncope Pulmonary: no cough or SOB Abdomen: HPI Musculoskeletal: no back pain Skin: no rash Neuro: no headache Constitutional: no fever : no urinary symptoms A comprehensive 10 point review of systems is otherwise negative aside from elements mentioned in the history of present illness. PAST MEDICAL HISTORY: History and physical dated 08/03/2017 personally reviewed includes diverticulosis and diverticulitis, excision of right hip mass , right knee arthroscopy. Social history: Nonsmoker, denies alcohol General Appearance: Alert and conversant, cooperative. Eyes: No scleral icterus. ENT, Mouth: Normal mucous membranes. Respiratory: Normal respiratory effort, breath sounds equal, lungs are clear to auscultation. Cardiovascular: Regular rate and rhythm. Gastrointestinal: Abdomen is soft and non tender. No rebound or guarding. Neurological: Alert, face symmetric, normal motor and sensory in extremities. Skin: Warm and dry, no rashes. Musculoskeletal: No peripheral edema. Psychiatric: Very anxious and hyperventilating. Emergency Department course/MDM: Haldol 2.5 and Benadryl 25 mg IV, Reglan 10 mg IV, normal saline hydration. 1725: Patient is sleeping, easily awakened, wants something for his"sour stomach"GI cocktail ordered. 184: Abdomen soft nontender, sleeping quietly easily awakened. Trial of oral fluids. 2002: No further vomiting, stable for discharge. Smoking Status: Never smoked Constitutional: Initial Vital Signs Temperature (C) 37.2 C 01/20/18 15:41 Heart Rate 71 01/20/18 15:41 Respiratory Rate 20 01/20/18 15:41 Blood Pressure 148/114 H 01/20/18 15:41 O2 Sat (%) 100 01/20/18 15:41 O2 Delivery Mode Room Air Allergies/Adverse Reactions: Penicillins Allergy (Mild, Verified 08/03/17 09:47) Rash Home Medications: Medication Instructions Recorded NK [No Known Home Meds] 08/03/17 Medical Decision Making - Data Points Laboratory Results: Laboratory Results 01/20/18 16:47 01/20/18 16:47 01/20/18 01/20/18 16:47 16:47 WBC 13.30 10^3/uL H 10^3/uL (3.80-9.50) RBC 5.48 10^6/uL 10^6/uL (4.40-6.38) Hgb 18.1 g/dL H g/dL (13.7-17.5) Hct 48.9 % % (40.0-51.0) MCV 89.2 fL fL (81.5-99.8) MCH 33.0 pg pg (27.9-34.1) MCHC 37.0 g/dL H g/dL (32.4-36.7) RDW 12.3 % % (11.5-15.2) Plt Count 258 10^3/uL 10^3/uL (150-400) MPV 9.3 fL fL (8.7-11.7) Neut % (Auto) 91.9 % H % (39.3-74.2) Lymph % (Auto) 4.2 % L % (15.0-45.0) Parke % (Auto) 3.2 % L % (4.5-13.0) Eos % (Auto) 0.0 % L % (0.6-7.6) Baso % (Auto) 0.2 % L % (0.3-1.7) Nucleat RBC Rel Count 0.0 % % (0.0-0.2) Absolute Neuts (auto) 12.22 10^3/uL H 10^3/uL (1.70-6.50) Absolute Lymphs (auto) 0.56 10^3/uL L 10^3/uL (1.00-3.00) Absolute Monos (auto) 0.43 10^3/uL 10^3/uL (0.30-0.80) Absolute Eos (auto) 0.00 10^3/uL L 10^3/uL (0.03-0.40) Absolute Basos (auto) 0.03 10^3/uL 10^3/uL (0.02-0.10) Absolute Nucleated RBC 0.00 10^3/uL 10^3/uL (0-0.01) Immature Gran % 0.5 % % (0.0-1.1) Immature Gran # 0.07 10^3/uL 10^3/uL (0.00-0.10) RBC/WBC/PLT Morphology TNP Platelet Estimate TNP Sodium 145 mEq/L mEq/L (135-145) Potassium 4.2 mEq/L mEq/L (3.3-5.0) Chloride 108 mEq/L mEq/L (97-110) Carbon Dioxide 16 mEq/l L mEq/l (22-31) Anion Gap 21 mEq/L H mEq/L (8-16) BUN 20 mg/dL mg/dL (7-23) Creatinine 0.9 mg/dL mg/dL (0.7-1.3) Estimated GFR > 60 Glucose 150 mg/dL H mg/dL (70-100) Calcium 10.1 mg/dL mg/dL (8.5-10.4) Total Bilirubin 1.4 mg/dL mg/dL (0.1-1.4) Conjugated Bilirubin 0.2 mg/dL mg/dL (0.0-0.5) Unconjugated Bilirubin 1.2 mg/dL H mg/dL (0.0-1.1) AST 28 IU/L IU/L (17-59) ALT 24 IU/L IU/L (21-72) Alkaline Phosphatase 92 IU/L IU/L (38-126) Total Protein 8.3 g/dL H g/dL (6.3-8.2) Albumin 5.1 g/dL H g/dL (3.5-5.0) Lipase 25 IU/L IU/L (23-300) Medications Given: Discontinued Medications Al Hydroxide/Mg Hydroxide (Maalox Susp) 30 ml PO ONCE ONE Stop: 01/20/18 17:28 Last Admin: 01/20/18 18:04 Dose: 30 ml Diphenhydramine HCl (Benadryl Injection) 25 mg IVP EDNOW ONE Stop: 01/20/18 16:40 Last Admin: 01/20/18 16:53 Dose: 25 mg Haloperidol Lactate (Haldol Injection) 2.5 mg IVP EDNOW ONE Stop: 01/20/18 16:40 Last Admin: 01/20/18 16:53 Dose: 2.5 mg Hyoscyamine Sulfate (Levsin, Hyomax-Sl) 0.25 mg PO ONCE ONE Stop: 01/20/18 17:28 Last Admin: 01/20/18 18:05 Dose: 0.25 mg Sodium Chloride (Ns) 1,000 mls @ 0 mls/hr IV ONCE ONE; Wide Open PRN Reason: Protocol Stop: 01/20/18 16:31 Last Admin: 01/20/18 16:44 Dose: 1,000 mls Sodium Chloride (Ns) 1,000 mls @ 0 mls/hr IV EDNOW ONE; Wide Open PRN Reason: Protocol Stop: 01/20/18 16:40 Last Admin: 01/20/18 16:45 Dose: 1,000 mls Sodium Chloride (Ns) 1,000 mls @ 0 mls/hr IV EDNOW ONE; Wide Open PRN Reason: Protocol Stop: 01/20/18 17:33 Last Admin: 01/20/18 18:04 Dose: 1,000 mls Lidocaine (Lidocaine 2% Viscous) 15 ml PO ONCE ONE Stop: 01/20/18 17:28 Last Admin: 01/20/18 18:04 Dose: 15 ml Metoclopramide HCl (Reglan Injection) 10 mg IVP EDNOW ONE Stop: 01/20/18 16:40 Last Admin: 01/20/18 16:53 Dose: 10 mg Ondansetron HCl (Zofran) 4 mg IVP EDNOW ONE Stop: 01/20/18 16:31 Last Admin: 01/20/18 16:59 Dose: Not Given Departure - Departure Disposition: Home, Routine, Self-Care Clinical Impression: Abdominal pain Qualifiers: Abdominal location: unspecified location Qualified Code(s): R10.9 - Unspecified abdominal pain Nausea & vomiting Qualifiers: Vomiting type: unspecified Vomiting Intractability: unspecified Qualified Code( s): R11.2 - Nausea with vomiting, unspecified Condition: Good Instructions: Acute Nausea and Vomiting (ED) Referrals: [facility],. [Clinic] - As per Instructions
[2018-01-20 16:54] LABS: PLATELET COUNT 258 10^3/uL (150-400)
[2018-01-20] MEDS ORDERED: HYOSCYAMINE SULFATE 0.125 MG TAB PO ONE (17:27)
[2018-01-20] MEDS ORDERED: MAG HYDROX/AL HYDROX/SIMETH 30 ML UDCUP PO ONE (17:27)
[2018-01-20] MEDS ORDERED: LIDOCAINE 2% VISCOUS 15 ML UDCUP PO ONE (17:27)
[2018-01-20] MEDS ORDERED: ONDANSETRON 4MG PREPACK#2 BTL TAKEHOME ONE (20:03)
[2018-01-20 20:16] VITALS: BP 148/99
== END 2018-01-20 20:15 | disposition home or self-care (01) ==
DX: R11.2 Nausea with vomiting, unspecified (principal); R10.9 Unspecified abdominal pain; E86.9 Volume depletion, unspecified
CPT/HCPCS: 96374; J1200; J1630; J2405; J2765

== ENCOUNTER 2018-01-23 16:18 | Inpatient (IN) | payer MEDICAID ==
[2018-01-23] MEDS ORDERED: ONDANSETRON DISINTEGRATING 4 MG TAB ONE (16:33)
[2018-01-23] MEDS ORDERED: ONDANSETRON DISINTEGRATING 4 MG TAB PO ONE (16:34)
[2018-01-23] MEDS ORDERED: HALOPERIDOL LACT 5 MG/ML INJ IVP ONE (16:53)
[2018-01-23] MEDS ORDERED: NS 2,000 ML IV ONE (16:54)
--- NOTE | 2018-01-23 16:56 | EDPHY ---
H & P Stated Complaint: vomiting x 4 days yesterday started epigastric pain Time Seen by Provider: 01/23/18 16:48 HPI/ROS: CHIEF COMPLAINT: "My diverticulitis is hurting" HISTORY OF PRESENT ILLNESS: 62-year-old male with multiple previous admissions for nausea vomiting last seen emergency department 3 days ago for complaints of intractable nausea vomiting, treated and released returns to the ER via taxi complaining of epigastric and left lower quadrant pain, nausea, vomiting, last bowel movement 3 days ago. No history of abdominal surgeries. Prior history of diverticulitis. No fever or chills. No back pain. No urinary abnormality. No testicular pain. No chest pain. REVIEW OF SYSTEMS: A ten point review of systems was performed and is negative with the exception of the items mentioned in the HPI PAST MEDICAL & SURGICAL HISTORY: Diverticulitis. Diverticulosis. Excision right hip mass. SOCIAL HISTORY:Nonsmoker no alcohol. PHYSICAL EXAM (Prior to examination, patient consented to physical exam, hands were washed and my usual and customary physical exam procedures followed) 1) GENERAL: Well-developed, well-nourished, alert and oriented. Appears anxious , hyperventilating. 2) HEAD: Normocephalic, atraumatic 3) HEENT: Pupils equal, round, reactive to light bilaterally. Sclera anicteric. [Nasopharynx, oropharynx, clear, no lesions. Dry mucous membrane 4) NECK: Full range of motion, no meningeal signs. 5) LUNGS: Clear auscultation bilaterally, no wheezes, no rhonchi, no retractions. 6) HEART: Regular rate and rhythm, no murmur, no heave, no gallop. 7) ABDOMEN: tender to palpation epigastrium, tender to palpation left lower quadrant,, negative peritoneal sign, 8) MUSCULOSKELETAL: Moving all extremities, no focal areas of tenderness, no obvious trauma. No peripheral edema or discoloration. 9) BACK: No CVA tenderness, no midline vertebral tenderness, no fluctuance, no step-off, no obvious trauma, no visual or palpable abnormality. 10) SKIN: No rash, no petechiae. 11) : Normal male external genitalia bilateral testicles nontender, bilateral cremasteric reflex present, no high-riding testicles no urethral discharge. DIFFERENTIAL DIAGNOSIS: [My differential diagnosis includes, but is not limited to, acute appendicitis, acute cholecystitis, bowel obstruction, acute pancreatitis, testicular torsion, gastritis and urinary tract infection. The patient understands that this diagnosis is provisional and can never be 100% accurate. This is a partial list of diagnoses considered. These considerations are based on history, physical exam, past history and reassessment. - Personal History Current Tetanus/Diphtheria Vaccine: No Current Tetanus Diphtheria and Acellular Pertussis (TDAP): No Tetanus Vaccine Date: < 10 YEARS - Medical/Surgical History Hx Asthma: No Hx Chronic Respiratory Disease: No Hx Diabetes: No Hx Cardiac Disease: No Hx Renal Disease: No Hx Cirrhosis: No Hx Alcoholism: No Hx HIV/AIDS: No Hx Splenectomy or Spleen Trauma: No Other PMH: diverticulitis, Lt ACL SURGERY, tumor right hip;Hepatitis marijuana use, arthritis - Social History Smoking Status: Current some day smoker Constitutional: Initial Vital Signs Temperature (C) 36.4 C 01/23/18 16:29 Heart Rate 104 H 01/23/18 16:29 Respiratory Rate 22 H 01/23/18 16:29 Blood Pressure 117/90 H 01/23/18 16:29 O2 Sat (%) 95 01/23/18 16:29 O2 Delivery Mode Nasal Cannula O2 (L/minute) 2 Allergies/Adverse Reactions: Penicillins Allergy (Mild, Verified 08/03/17 09:47) Rash Home Medications: Medication Instructions Recorded Multivitamins [Multivitamin (*)] 1 each PO DAILY 01/23/18 Medical Decision Making - Diagnostics Imaging Results: Imaging Impressions Abdomen CT 01/23/18 17:13 Impression: 1. Diverticulosis throughout the colon without definite diverticulitis. A couple mildly dilated fluid-filled loops of proximal jejunum are seen in the left upper quadrant of uncertain significance and could represent enteritis or ileus. No definite focal transition to suggest a small bowel obstruction. 2. Other chronic findings as above, which are stable. Results called and discussed with Parish Mcadams PA-C on January 23, 2018 at 1812 hours. Images reviewed myself ED Course/Re-evaluation: 4:56 p.m.: Old medical records reviewed. Will administer medication, IV hydration, more than likely CT imaging. I saw this patient independently based on established practice protocols. Care of patient under supervision of secondary supervising physician Dr Santiago . 5:12 p.m. patient noted to have an elevated BUN to creatinine ratio of 21. He is getting aggressive IV hydration. 5:52 p.m.: Elevated H&H of 20 and 55. I suspect more than likely secondary to volume depletion and hemoconcentration.. He is receiving IV hydration. 6:45 p.m.: Re-evaluation. Discussed his imaging results. He is sleeping, easily woken. He has received 2 L of IV hydration. Will attempt oral fluid challenge 7:10 p.m.: Re-evaluation, patient is unable tolerate oral intake. Complaining of continued nausea. He has received Haldol, Benadryl. Plan will be admission to hospitalist. 7:15 p.m.: Consultation with hospitalist Dr. Brent Gordon who will admit patient. - Data Points Laboratory Results: Laboratory Results 01/23/18 16:56 01/23/18 16:56 01/23/18 01/23/18 16:56 16:56 WBC 13.70 10^3/uL H 10^3/uL (3.80-9.50) RBC 6.29 10^6/uL 10^6/uL (4.40-6.38) Hgb 20.2 g/dL H* g/dL (13.7-17.5) Hct 55.3 % H % (40.0-51.0) MCV 87.9 fL fL (81.5-99.8) MCH 32.1 pg pg (27.9-34.1) MCHC 36.5 g/dL g/dL (32.4-36.7) RDW 12.3 % % (11.5-15.2) Plt Count 300 10^3/uL 10^3/uL (150-400) MPV 9.4 fL fL (8.7-11.7) Neut % (Auto) 76.4 % H % (39.3-74.2) Lymph % (Auto) 12.9 % L % (15.0-45.0) [place] % (Auto) 10.1 % % (4.5-13.0) Eos % (Auto) 0.0 % L % (0.6-7.6) Baso % (Auto) 0.3 % % (0.3-1.7) Nucleat RBC Rel Count 0.0 % % (0.0-0.2) Absolute Neuts (auto) 10.46 10^3/uL H 10^3/uL (1.70-6.50) Absolute Lymphs (auto) 1.77 10^3/uL 10^3/uL (1.00-3.00) Absolute Monos (auto) 1.39 10^3/uL H 10^3/uL (0.30-0.80) Absolute Eos (auto) 0.00 10^3/uL L 10^3/uL (0.03-0.40) Absolute Basos (auto) 0.04 10^3/uL 10^3/uL (0.02-0.10) Absolute Nucleated RBC 0.00 10^3/uL 10^3/uL (0-0.01) Immature Gran % 0.3 % % (0.0-1.1) Immature Gran # 0.04 10^3/uL 10^3/uL (0.00-0.10) Sodium 140 mEq/L mEq/L (135-145) Potassium 3.4 mEq/L mEq/L (3.3-5.0) Chloride 96 mEq/L L mEq/L (97-110) Carbon Dioxide 24 mEq/l mEq/l (22-31) Anion Gap 20 mEq/L H mEq/L (8-16) BUN 24 mg/dL H mg/dL (7-23) Creatinine 1.1 mg/dL mg/dL (0.7-1.3) Estimated GFR > 60 Glucose 126 mg/dL H mg/dL (70-100) Calcium 10.5 mg/dL H mg/dL (8.5-10.4) Total Bilirubin 1.4 mg/dL mg/dL (0.1-1.4) Conjugated Bilirubin 0.3 mg/dL mg/dL (0.0-0.5) Unconjugated Bilirubin 1.1 mg/dL mg/dL (0.0-1.1) AST 21 IU/L IU/L (17-59) ALT 29 IU/L IU/L (21-72) Alkaline Phosphatase 98 IU/L IU/L (38-126) Total Protein 9.2 g/dL H g/dL (6.3-8.2) Albumin 5.3 g/dL H g/dL (3.5-5.0) Lipase 65 IU/L IU/L (23-300) Medications Given: Sodium Chloride (Ns) 1,000 mls @ 125 mls/hr IV CONT CAROL Stop: 07/22/18 19:44 Last Admin: 01/23/18 20:18 Dose: 1,000 mls Ondansetron HCl (Zofran) 4 mg IVP Q4HRS PRN PRN Reason: Nausea/Vomiting, Can't Take PO Stop: 07/22/18 19:37 Last Admin: 01/23/18 20:40 Dose: 4 mg Pantoprazole Sodium (Protonix) 40 mg IVP BID CAROL Stop: 07/22/18 20:59 Last Admin: 01/23/18 20:18 Dose: 40 mg Promethazine HCl (Phenergan) 6.25 - 12.5 mg IVP Q6HRS PRN PRN Reason: Nausea/Vomiting, Use 2nd Stop: 07/22/18 19:37 Last Admin: 01/23/18 21:51 Dose: 6.25 mg Discontinued Medications Diphenhydramine HCl (Benadryl Injection) 25 mg IVP EDNOW ONE Stop: 01/23/18 16:54 Last Admin: 01/23/18 17:03 Dose: 25 mg Haloperidol Lactate (Haldol Injection) 2.5 mg IVP EDNOW ONE Stop: 01/23/18 16:54 Last Admin: 01/23/18 17:03 Dose: 2.5 mg Sodium Chloride (Ns) 2,000 mls @ 0 mls/hr IV ONCE ONE PRN Reason: Wide Open Stop: 01/23/18 16:55 Last Admin: 01/23/18 17:03 Dose: 2,000 mls Ondansetron HCl (Zofran Odt) 4 mg PO EDNOW ONE Stop: 01/23/18 16:35 Last Admin: 01/23/18 17:04 Dose: Not Given Ondansetron HCl (Zofran) 4 mg IVP EDNOW ONE Stop: 01/23/18 17:05 Last Admin: 01/23/18 17:08 Dose: 4 mg Departure - Departure Disposition: [facility] Clinical Impression: Volume depletion Intractable vomiting with nausea Qualifiers: Vomiting type: cyclical vomiting Qualified Code(s): G43.A1 - Cyclical vomiting , intractable Condition: Fair
[2018-01-23] MEDS ORDERED: ONDANSETRON 4 MG/2 ML VIAL ONE (17:00)
[2018-01-23] MEDS ORDERED: ONDANSETRON 4 MG/2 ML VIAL IVP ONE (17:04)
[2018-01-23] MEDS ORDERED: IOPAMIDOL (ISOVUE-300) 100 ML BTL ONE (17:32)
[2018-01-23 17:52] LABS: PLATELET COUNT 300 10^3/uL (150-400)
--- NOTE | 2018-01-23 20:16 | GHP ---
[f rep st] HISTORY AND PHYSICAL DATE OF ADMISSION: 01/23/2018 CHIEF COMPLAINT: Vomiting. HISTORY OF PRESENT ILLNESS: This is a 62-year-old man with multiple admissions for diverticulitis ve rsus gastroenteritis versus cyclic vomiting syndrome versus marijuana hyperemesis syndrome, who prese nts with 3 days of vomiting. He tells me it has been foamy white associated with some epigastric diaz n. This feels different than his previous episodes. He does not have any diarrhea; in fact, he has not had any bowel movements. He feels slightly better after receiving Benadryl and Haldol in the [facility] department. Nobody else around him is sick. PAST MEDICAL/SURGICAL HISTORY: Diverticulitis, osteoarthritis, depression, right knee mass, right kn ee arthroscopic surgery. MEDICATIONS: Please see medication reconciliation. ALLERGIES: To penicillin. FAMILY HISTORY: Reviewed and noncontributory. SOCIAL HISTORY: Lives in a mobile home in [facility]. He is still smoking marijuana, but he has cut down significantly. He does not drink alcohol. REVIEW OF SYSTEMS: 10-point review of systems is conducted and is negative except for HPI. PHYSICAL EXAM: VITAL SIGNS: Blood pressure 97/72, heart rate 104, respiration rate 18, saturating a t 95% on room air. Temperature is 36.4. GENERAL: The patient is a pleasant man who is resting comfo rtably in no acute distress. HEENT: Shows him to be normocephalic, atraumatic. CARDIOVASCULAR: Re gular rate and rhythm. No murmurs, rubs, or gallops. PULMONARY: Lungs clear to auscultation bilate rally. ABDOMEN: Soft. He has normal bowel sounds. He has mild midepigastric pain. He has no guar ding, no peritoneal signs. : No Millard. NEUROLOGIC: Shows him to be alert and oriented x3. He i s somnolent, but easily awakened. PSYCHIATRIC: Shows a normal mood and affect. LABS: White count is 13.7. Hemoglobin is 20. BUN is 24. Chloride is 96. Total protein is 9.2, al bumin 5.3. DATA: 1. I discussed this with Parish Mcadams. Will admit to med/surg. 2. I reviewed his CT scan. It shows diverticulosis without diverticulitis as well as some mildly di lated proximal jejunal limbs without clear bowel obstruction. IMPRESSION AND PLAN: 1. Profound dehydration: He is quite hemoconcentrated. Will continue intravenous fluids overnight. 2. Intractable nausea and vomiting: Differential includes cyclic vomiting syndrome, gastroenteritis , marijuana hyperemesis syndrome. At this point, supportive care with intravenous fluid hydration is appropriate. He has antiemetics ordered intravenous. Will allow him clear liquids tonight, but if he improves, may advance his diet tomorrow. I note his mildly dilated fluid-filled loops of jejunum. I am unclear exactly what to make of this. I also note he has a mildly elevated white count, but h e is quite hemoconcentrated. Would follow his clinical course at this point, but will recheck a CBC in the morning. /[id number]/MODL
[2018-01-23] MEDS: NS 1,000 ML IV SCH (20:18)
[2018-01-23] MEDS: PANTOPRAZOLE SODIUM 40 MG VIAL IVP SCH (20:18)
[2018-01-23] MEDS: ONDANSETRON 4 MG/2 ML VIAL IVP PRN (20:40)
[2018-01-23] MEDS: PROMETHAZINE HCL 25 MG/ML INJ IVP PRN (21:51)
[2018-01-24] MEDS: LORazepam 0.5 MG TAB PO PRN (02:46)
[2018-01-24] MEDS: NS 1,000 ML IV SCH ×2 (04:48→13:57)
[2018-01-24 05:30] LABS: PLATELET COUNT 216 10^3/uL (150-400)
[2018-01-24] MEDS ORDERED: PROTOCOL POTASSIUM 1 DOSE MISC PRN (08:18)
[2018-01-24] MEDS ORDERED: POTASSIUM CL 10 MEQ TAB PO ONE ×2 (08:27→20:20)
[2018-01-24] MEDS: POTASSIUM Cl (KCl) 100 ML IV SCH ×4 (09:38→14:20)
[2018-01-24] MEDS: PANTOPRAZOLE SODIUM 40 MG VIAL IVP SCH ×2 (09:38→20:13)
[2018-01-24] MEDS: PROMETHAZINE HCL 25 MG/ML INJ IVP PRN ×2 (10:57→20:27)
--- NOTE | 2018-01-24 13:08 | HOSPPROG ---
Hospitalist Progress Note Assessment/Plan: 62 y/o M with PMH diverticulitis, cyclic vomiting syndrome, gastroenteritis, cannabinoiid hyperemesis, here for at least 3 days of N/V associated with abdominal pain. Has h/o smoking marijuana but reportedly has been cutting down. Has had 5-6 admissions for similar symptoms in the past year. Chart reviewed. CTA reviewed which shows diverticulosis without diverticulitis as well as some mildly dilated proximal jejunal limbs without clear bowel obstruction. #. profound dehydration: H/H showed severe hemoconcentration on arrival improved #. abdominal pain: no e/o diverticulitis or SBO currently pt notes ongoing pain will keep now as inpt for inability to take PO #. elevated blood pressure: likely due to above will consider starting anti-HTN if bp not improved #. hypokalemia: put on repletion protocol #. FEN: keep on IV fluid as patient not able to much PO #. psychosocial: CARLOTTA Graham notes that patilena tis homeless and has been struggling pschologically with that will ask Roxie Nolasco to see how current situation is playing into his symptoms and options for support and treatment for him LOS: admit to inpt Subjective: Ongoing abdominal pain and N. Pt only answers yes and no and vandana very somnolent and uncomfortable in appearance. Objective: Vital Signs Temp Pulse Resp BP Pulse Ox 99.1 F 66 14 167/108 H 95 01/24/18 12:00 01/24/18 12:00 01/24/18 12:00 01/24/18 12:00 01/24/18 12:00 Laboratory Results 01/24/18 04:40 01/24/18 04:40 01/23/18 01/24/18 01/25/18 05:59 05:59 05:59 Intake Total 3276 250 Output Total 950 1075 Balance 2326 -825 - Physical Exam Eyes: anicteric sclera Ears, Nose, Mouth, Throat: hearing normal Cardiovascular: regular rate and rhythym Respiratory: no respiratory distress Gastrointestinal: other (soft + BS and abd pain) Skin: warm, normal color Psychiatric: anxious ICD10 Worksheet Patient Problems: Problems Problem Status Onset Intractable vomiting with nausea Acute Volume depletion Acute Abdominal pain Acute Abdominal pain Acute Chronic abdominal pain Acute Cyclic vomiting syndrome Acute Dehydration Acute Nausea Acute Nausea & vomiting Acute Sigmoid diverticulitis Acute Vomiting Acute
--- NOTE | 2018-01-24 14:03 | PDMN ---
Medical Necessity Medical necessity: C/M review: est. > 2 MN LOS for eval and TX of acute - profound dehydration - improved, ongoing abdominal pain, inability to tolerate oral intake, nausea, elevated BP, hypokalemia, CT shows diverticulosis without diverticulitis and some mildly dilated proximal jejunal limbs without clear bowel obstruction,. patient has been struggling psychologically with homelessness, requiring planned Behavioral Health Resource Nurse consult, Integrative Care consult, ongoing IV fluids, electrolyte monitoring and repletion, IV antiemetics, IV Protonix, comorbid history of cyclic vomiting syndrome, gastroenteritis, cannabinoid hyperemesis, smoking marijuana but reportedly has been cutting down, patient has had 5-6 admission in the past year per 01/24/2018 Hospitalist progress note.
--- NOTE | 2018-01-24 14:47 | ASMTCMCOM ---
CM Note CM Note Notes: CM chart review. Patient is 62 year old male who presented to [facility] ED for intractable vomiting & dehydration. Patient has been seen at [facility] several times in the past for similar symptoms. RN spoke with CM, shares the patients housing situation is unclear and asked for CM support. CM presented to patient room several times, patient sleeping and did not wake. CM to follow. Current D/C Plan: TBD. Date Signed: 01/24/2018 02:46 PM Electronically Signed By:Maria Ines Jackson
[2018-01-24] MEDS ORDERED: LORazepam 2 MG/ML INJ ONE (17:08)
[2018-01-24] MEDS: LORazepam 2 MG/ML INJ IVP PRN ×2 (17:11→22:54)
[2018-01-25] MEDS ORDERED: POTASSIUM CL 10 MEQ TAB PO ONE ×2 (07:21→19:51)
--- NOTE | 2018-01-25 08:20 | HOSPPROG ---
Hospitalist Progress Note Assessment/Plan: 62 y/o M with PMH diverticulitis, cyclic vomiting syndrome, gastroenteritis, cannabinoid hyperemesis, here for at least 3 days of N/V associated with abdominal pain. Has h/o smoking marijuana but reportedly has been cutting down. Has had 5-6 admissions for similar symptoms in the past year. Chart reviewed. CTA reviewed which shows diverticulosis without diverticulitis as well as some mildly dilated proximal jejunal limbs without clear bowel obstruction. Today is my first encounter with the patient, chart reviewed #. profound dehydration: H/H showed severe hemoconcentration on arrival improved #. abdominal pain: no e/o diverticulitis or SBO currently tolerating clear liquids, asking to do a trial of regular diet #. elevated blood pressure: likely due to above resolved #. hypokalemia: put on repletion protocol #. FEN: keep on IV fluid as patient not able to much PO #. psychosocial: concern he is homeless and has been struggling psychologically with that [facility] to see how current situation is playing into his symptoms and options for support and treatment for him LOS: pending, I've taken care of Celso prior, he has frequent bouts of abdominal pain. Quite withdrawn, appreciate [facility] seeing him. Subjective: Celso said he is hungry. Objective: Vital Signs Temp Pulse Resp BP Pulse Ox 37.2 C 81 16 123/84 H 94 01/25/18 08:16 01/25/18 08:16 01/25/18 08:16 01/25/18 08:16 01/25/18 08:16 Laboratory Results 01/25/18 04:18 01/24/18 01/25/18 01/26/18 05:59 05:59 05:59 Intake Total 2210 340 Output Total 1775 300 Balance 435 40 - Physical Exam Constitutional: no apparent distress, not in pain Eyes: other (keeps his eyes shut during my interview) Ears, Nose, Mouth, Throat: hearing normal Cardiovascular: regular rate and rhythym Respiratory: no respiratory distress Gastrointestinal: normoactive bowel sounds, soft, non-tender abdomen Skin: warm Neurologic: AAOx3 Psychiatric: thought process linear, depressed ICD10 Worksheet Patient Problems: Problems Problem Status Onset Intractable vomiting with nausea Acute Volume depletion Acute Abdominal pain Acute Abdominal pain Acute Chronic abdominal pain Acute Cyclic vomiting syndrome Acute Dehydration Acute Nausea Acute Nausea & vomiting Acute Sigmoid diverticulitis Acute Vomiting Acute
[2018-01-25] MEDS: PANTOPRAZOLE SODIUM 40 MG TAB PO SCH ×2 (09:26→20:11)
[2018-01-25] MEDS: PANTOPRAZOLE SODIUM 40 MG VIAL IVP SCH (10:37)
[2018-01-25] MEDS: LORazepam 0.5 MG TAB PO PRN (12:37)
[2018-01-25] MEDS: PROMETHAZINE HCL 25 MG/ML INJ IVP PRN (12:37)
[2018-01-25] MEDS: NS 1,000 ML IV SCH (15:34)
--- NOTE | 2018-01-25 17:07 | ASMTCMCOM ---
CM Note CM Note Notes: Met with patient briefly but he had company and asked if I could come back. Met with Roxie Nolasco who states patient is not depressed but does need resources and a plan for ongoing medical care. Will meet with patient tomorrow and take [facility] from [facility] with me to review services he can access. Plan to call [facility] after discussion with to see if there is a way patient can go regularly to prevent further hospitalizations. Patient does need a nutritional consult, will get this ordered tomorrow. CM will follow. Date Signed: 01/25/2018 05:07 PM Electronically Signed By:Kirstin Roque LCSW
[2018-01-25] MEDS: ONDANSETRON 4 MG/2 ML VIAL IVP PRN (17:46)
[2018-01-25] MEDS: POTASSIUM Cl (KCl) 100 ML IV SCH ×4 (20:11→23:40)
[2018-01-26] MEDS: PANTOPRAZOLE SODIUM 40 MG TAB PO SCH ×2 (08:51→20:50)
[2018-01-26] MEDS: ONDANSETRON 4 MG/2 ML VIAL IVP PRN (08:51)
[2018-01-26] MEDS: NS 1,000 ML IV SCH (08:51)
[2018-01-26] MEDS: ACETAMINOPHEN 325 MG TAB PO PRN ×2 (10:20→18:38)
--- NOTE | 2018-01-26 11:18 | ASMTCMCOM ---
CM Note CM Note Notes: Met with patient with Latanya from [facility]. Patient was not feeling well and did not want to discuss anything in detail at this time. He is open to Latanya returning later today to talk about housing lottery and support with follow up medical care in the community. Nutritional consult was ordered. CM will follow. Date Signed: 01/26/2018 11:17 AM Electronically Signed By:Kirstin Roque LCSW
[2018-01-26] MEDS: ONDANSETRON DISINTEGRATING 4 MG TAB PO PRN ×2 (13:21→18:38)
--- NOTE | 2018-01-26 15:33 | HOSPPROG ---
Hospitalist Progress Note Assessment/Plan: 62 y/o M with PMH diverticulitis, cyclic vomiting syndrome, gastroenteritis, cannabinoid hyperemesis, here for at least 3 days of N/V associated with abdominal pain. Has h/o smoking marijuana but reportedly has been cutting down. Has had 5-6 admissions for similar symptoms in the past year. Chart reviewed. CTA reviewed which shows diverticulosis without diverticulitis as well as some mildly dilated proximal jejunal limbs without clear bowel obstruction. #. profound dehydration: H/H showed severe hemoconcentration on arrival improved #. abdominal pain: no e/o diverticulitis or SBO currently tolerating reg diet, still has some nausea reviewed abd xray which shows nothing acute #. elevated blood pressure: l resolved #. hypokalemia: put on repletion protocol #. FEN: dc fluids tomorrow morning #. psychosocial: appreciate Roxie Nolasco's notes one of his concerns is how to eat safely w hx of diverticulosis, asked dietary to see *Homelessness appreciate CM looking at options for Celso LOS: pending, he is starting to eat and drink better, having less pain but episodes of nausea Subjective: Celso is feeling better, says his symptoms are improving w iv hydration and eating. Objective: Vital Signs Temp Pulse Resp BP Pulse Ox 37.0 C 84 20 122/84 H 95 01/26/18 08:00 01/26/18 08:00 01/26/18 08:00 01/26/18 08:00 01/26/18 08:00 Laboratory Results 01/26/18 04:20 01/25/18 01/26/18 01/27/18 05:59 05:59 05:59 Intake Total 2210 2235 Output Total 1775 1525 1000 Balance 435 710 -1000 - Physical Exam Constitutional: no apparent distress, appears nourished, not in pain Eyes: PERRL Ears, Nose, Mouth, Throat: hearing normal Cardiovascular: regular rate and rhythym Respiratory: no respiratory distress Gastrointestinal: normoactive bowel sounds, tenderness (epigastric area) Skin: warm Neurologic: AAOx3 Psychiatric: interacting appropriately, other (less withdrawn today) ICD10 Worksheet Patient Problems: Problems Problem Status Onset Intractable vomiting with nausea Acute Volume depletion Acute Abdominal pain Acute Abdominal pain Acute Chronic abdominal pain Acute Cyclic vomiting syndrome Acute Dehydration Acute Nausea Acute Nausea & vomiting Acute Sigmoid diverticulitis Acute Vomiting Acute
[2018-01-26] MEDS: POTASSIUM Cl (KCl) 10 MEQ in NS 100 ML IV SCH (20:50)
[2018-01-27] MEDS: ACETAMINOPHEN 325 MG TAB PO PRN ×2 (04:29→15:21)
[2018-01-27] MEDS ORDERED: POTASSIUM Cl (KCl) 100 ML IV SCH (08:00)
[2018-01-27] MEDS ORDERED: POTASSIUM CL 20 MEQ TAB PO ONE (08:15)
[2018-01-27] MEDS: PANTOPRAZOLE SODIUM 40 MG TAB PO SCH ×2 (10:00→20:01)
--- NOTE | 2018-01-27 10:48 | HOSPPROG ---
Hospitalist Progress Note Assessment/Plan: 62 y/o M with PMH diverticulitis, cyclic vomiting syndrome, gastroenteritis, cannabinoid hyperemesis, here for at least 3 days of N/V associated with abdominal pain. Has h/o smoking marijuana but reportedly has been cutting down. Has had 5-6 admissions for similar symptoms in the past year. Chart reviewed. CTA reviewed which shows diverticulosis without diverticulitis as well as some mildly dilated proximal jejunal limbs without clear bowel obstruction. #. profound dehydration: H/H showed severe hemoconcentration on arrival improved #. abdominal pain: no e/o diverticulitis or SBO currently ate 2 servings of breakfast his morning no pain during my exam #. elevated blood pressure: resolved #. hypokalemia: put on repletion protocol #. FEN: dc fluids tomorrow morning #. psychosocial: appreciate Roxie Nolasco's notes one of his concerns is how to eat safely w hx of diverticulosis, asked dietary to see *Homelessness appreciate CM looking at options for [place] he doesn't want to fill out paper work because he says the likelihood of getting a place is low LOS: hopefully, dc later today, will check in on him again. Subjective: Celso is feeling better today. Objective: Vital Signs Temp Pulse Resp BP Pulse Ox 37.2 C 70 16 127/90 H 95 01/27/18 07:57 01/27/18 07:57 01/27/18 07:57 01/27/18 07:57 01/27/18 07:57 Laboratory Results 01/27/18 04:20 01/26/18 01/27/18 01/28/18 05:59 05:59 05:59 Intake Total 2235 1299 350 Output Total 1525 2025 550 Balance 710 -726 -200 - Physical Exam Constitutional: no apparent distress, appears nourished, not in pain Eyes: PERRL Ears, Nose, Mouth, Throat: moist mucous membranes, hearing normal Cardiovascular: regular rate and rhythym Respiratory: no respiratory distress Gastrointestinal: normoactive bowel sounds, soft, non-tender abdomen Skin: warm Musculoskeletal: generalized weakness Neurologic: AAOx3 Psychiatric: interacting appropriately ICD10 Worksheet Patient Problems: Problems Problem Status Onset Intractable vomiting with nausea Acute Volume depletion Acute Abdominal pain Acute Abdominal pain Acute Chronic abdominal pain Acute Cyclic vomiting syndrome Acute Dehydration Acute Nausea Acute Nausea & vomiting Acute Sigmoid diverticulitis Acute Vomiting Acute
[2018-01-27] MEDS: POLYETHYLENE GLYCOL 3350 17 GM PKT PO SCH ×2 (12:23→19:36)
[2018-01-27] MEDS: ONDANSETRON DISINTEGRATING 4 MG TAB PO PRN (15:21)
[2018-01-28] MEDS: POLYETHYLENE GLYCOL 3350 17 GM PKT PO SCH (04:38)
[2018-01-28] MEDS: PANTOPRAZOLE SODIUM 40 MG TAB PO SCH (08:49)
[2018-01-28 09:07] VITALS: BP 117/92
--- NOTE | 2018-01-28 10:02 | ASMTCMCOM ---
CM Note CM Note Notes: [facility] medicine, patient is medically cleared for discharge. No needs identified at this time. Latanya from [facility] to follow. Spoke with mold sheet cleaner at [facility] and they will call him to schedule follow up appointment . CM available should other needs arise. Plan: DC to streets/car with follow up via [facility]. Date Signed: 01/28/2018 10:01 AM Electronically Signed By:Alexsandra Garcia RN
--- NOTE | 2018-01-28 14:00 | GDS ---
[f rep st] DISCHARGE SUMMARY DISCHARGE DIAGNOSES: 1. Dehydration. 2. Abdominal pain. 3. Hypertension. 4. Hypokalemia. 5. Nausea and vomiting. 6. Homelessness. CONSULTATIONS: Roxie Nolasco. STUDIES AND PROCEDURES: 1. CT of the abdomen. 2. Abdominal x-ray. PHYSICAL EXAM: GENERAL: The patient is alert. VITAL SIGNS: Afebrile at 36.8, pulse is 89, respira tory rate 17, blood pressure is 117/92, he is saturating 95% on room air. I have seen and evaluated the patient on the day of discharge. HOSPITAL COURSE: The patient is a 62-year-old male who presents to the emergency room with complaint s of nausea, vomiting and abdominal pain. He was evaluated and diagnosed with: 1. Dehydration. During this hospitalization, he received IV fluids and his dehydration has resolved . 2. Abdominal pain. The patient has a history of diverticulitis. However, this was not identified a s the cause of pain during this hospitalization. He is tolerating a regular diet and he has no furth er pain. 3. Hypertension. This is related likely secondary the patient's anxiety and has resolved. 4. Hypokalemia. Replacement has been completed. 5. Psychosocial. The patient is a heavy marijuana user. He did receive a consultation from Roxie Nolasco during this hospitalization. Further intervention has been recommended in the outpatient setting . 6. Homelessness. Case Management has assisted with this patient's care. DISPOSITION: He will be discharged independently. Followup will be in the outpatient setting. Ther e are no pending studies. DISCHARGE MEDICATIONS: Please refer to EMR form. I have not provided the patient with any changes i n medication other than the initiation of Protonix. I spent greater than 35 minutes in the care, coordination, and management of the patient's discharge. /[id number]/MODL
== END 2018-01-28 10:18 | disposition home or self-care (01) | DRG 249 ==
LOC: F3E 19:55 → OBSVTOIN 01-24 12:52
PROVIDERS: ADMIT Student in an Organized Health Care Education/Training Program; ATTEND Student in an Organized Health Care Education/Training Program
DX: R11.2 Nausea with vomiting, unspecified (principal); E86.0 Dehydration; E86.1 Hypovolemia; E87.6 Hypokalemia; R10.13 Epigastric pain; F12.90 Cannabis use, unspecified, uncomplicated; K57.90 Diverticulosis of intestine, part unspecified, without perforation or abscess without bleeding; F17.210 Nicotine dependence, cigarettes, uncomplicated; Z88.0 Allergy status to penicillin; Z59.0 Homelessness
CPT/HCPCS: 92507-GN; 92523-GN; 96374; G0378; J1200; J1630; J2060; J2270; J2405; J2550; J3480; Q9967

== ENCOUNTER 2018-04-24 14:26 | Emergency (ER) | payer MEDICAID ==
[2018-04-24] MEDS ORDERED: HALOPERIDOL LACT 5 MG/ML INJ IVP ONE (14:49)
[2018-04-24] MEDS ORDERED: NS 1,000 ML IV ONE ×3 (14:49→17:13)
[2018-04-24] MEDS ORDERED: LORazepam 2 MG/ML INJ IVP ONE (14:50)
--- NOTE | 2018-04-24 14:50 | EDPHY ---
H & P Time Seen by Provider: 04/24/18 14:42 HPI/ROS: CHIEF COMPLAINT: Severe vomiting HISTORY OF PRESENT ILLNESS: Patient had similar symptoms in January says this is identical. Awakened at 5:30 a.m. With multiple episodes of severe nausea and vomiting associated with severe abdominal cramping worse on the left side than the right. No fever or chills, no hematemesis or coffee-ground emesis, no diarrhea. No recent injury or trauma. Says symptoms are severe, worse with any oral intake. REVIEW OF SYSTEMS: Eye: no change in vision ENT: no sore throat Cardiac: no chest pain or syncope Pulmonary: no cough or SOB Abdomen: HPI Musculoskeletal: no back pain Skin: no rash Neuro: no headache Constitutional: no fever : no urinary symptoms A comprehensive 10 point review of systems is otherwise negative aside from elements mentioned in the history of present illness. PAST MEDICAL HISTORY: Includes knee diverticulitis, knee arthroscopy, cyclic vomiting syndrome Social history: No alcohol, continues to smoke marijuana, last 2 days ago General Appearance: Alert and conversant, cooperative. Eyes: No scleral icterus. ENT, Mouth: Normal mucous membranes. Respiratory: Normal respiratory effort, breath sounds equal, lungs are clear to auscultation. Cardiovascular: Regular rate and rhythm. Gastrointestinal: Abdomen is soft and non tender. Normal male . No rebound or guarding. Neurological: Alert, face symmetric, normal motor and sensory in extremities. Skin: Warm and dry, no rashes. Musculoskeletal: No peripheral edema. Psychiatric: Hyperventilating and moderately anxious. Emergency Department course/MDM: Likely recurrent cyclic vomiting syndrome, does not have physical exam findings to suggest acute surgical abdominal process or diverticulitis is likely. Saline hydration, Benadryl Ativan and haloperidol discussed and consented, labs. 1519: Labs reviewed including WBC 54383, CO2 in the teens consistent with dehydration 1555: Sleeping quietly, easily awakened, abdomen soft and nontender. Plan for oral fluid trial, patient says he feels better, stable for discharge. 1820: Still sleeping with easily awakened, no further vomiting, stable for discharge. Smoking Status: Current some day smoker Constitutional: Initial Vital Signs Temperature (C) 36.4 C 04/24/18 14:29 Heart Rate 92 04/24/18 14:29 Respiratory Rate 20 04/24/18 14:29 Blood Pressure 164/121 H 04/24/18 14:29 O2 Sat (%) 98 04/24/18 14:29 O2 Delivery Mode Room Air Allergies/Adverse Reactions: Penicillins Allergy (Mild, Verified 04/24/18 14:31) Rash Home Medications: Medication Instructions Recorded NK [No Known Home Meds] 04/24/18 Medical Decision Making Differential Diagnosis: Differential considered including but not limited to gastroenteritis, cyclic vomiting, appendicitis, bowel obstruction, pancreatitis or hepatitis. - Data Points Laboratory Results: Laboratory Results 04/24/18 14:45 04/24/18 14:45 04/24/18 04/24/18 14:45 14:45 WBC 11.16 10^3/uL H 10^3/uL (3.80-9.50) RBC 5.32 10^6/uL 10^6/uL (4.40-6.38) Hgb 17.3 g/dL g/dL (13.7-17.5) Hct 47.4 % % (40.0-51.0) MCV 89.1 fL fL (81.5-99.8) MCH 32.5 pg pg (27.9-34.1) MCHC 36.5 g/dL g/dL (32.4-36.7) RDW 11.9 % % (11.5-15.2) Plt Count 275 10^3/uL 10^3/uL (150-400) MPV 9.7 fL fL (8.7-11.7) Neut % (Auto) 90.3 % H % (39.3-74.2) Lymph % (Auto) 6.0 % L % (15.0-45.0) [place] % (Auto) 3.1 % L % (4.5-13.0) Eos % (Auto) 0.0 % L % (0.6-7.6) Baso % (Auto) 0.2 % L % (0.3-1.7) Nucleat RBC Rel Count 0.0 % % (0.0-0.2) Absolute Neuts (auto) 10.08 10^3/uL H 10^3/uL (1.70-6.50) Absolute Lymphs (auto) 0.67 10^3/uL L 10^3/uL (1.00-3.00) Absolute Monos (auto) 0.35 10^3/uL 10^3/uL (0.30-0.80) Absolute Eos (auto) 0.00 10^3/uL L 10^3/uL (0.03-0.40) Absolute Basos (auto) 0.02 10^3/uL 10^3/uL (0.02-0.10) Absolute Nucleated RBC 0.00 10^3/uL 10^3/uL (0-0.01) Immature Gran % 0.4 % % (0.0-1.1) Immature Gran # 0.04 10^3/uL 10^3/uL (0.00-0.10) Sodium 141 mEq/L mEq/L (135-145) Potassium 3.5 mEq/L mEq/L (3.3-5.0) Chloride 106 mEq/L mEq/L (97-110) Carbon Dioxide 17 mEq/l L mEq/l (22-31) Anion Gap 18 mEq/L H mEq/L (8-16) BUN 21 mg/dL mg/dL (7-23) Creatinine 0.9 mg/dL mg/dL (0.7-1.3) Estimated GFR > 60 Glucose 150 mg/dL H mg/dL (70-100) Calcium 9.9 mg/dL mg/dL (8.5-10.4) Total Bilirubin 1.0 mg/dL mg/dL (0.1-1.4) Conjugated Bilirubin 0.2 mg/dL mg/dL (0.0-0.5) Unconjugated Bilirubin 0.8 mg/dL mg/dL (0.0-1.1) AST 27 IU/L IU/L (17-59) ALT 29 IU/L IU/L (21-72) Alkaline Phosphatase 82 IU/L IU/L (38-126) Total Protein 7.7 g/dL g/dL (6.3-8.2) Albumin 4.8 g/dL g/dL (3.5-5.0) Lipase 41 IU/L IU/L (23-300) Medications Given: Discontinued Medications Diphenhydramine HCl (Benadryl Injection) 25 mg IVP EDNOW ONE Stop: 04/24/18 14:50 Last Admin: 04/24/18 14:57 Dose: 25 mg Haloperidol Lactate (Haldol Injection) 2.5 mg IVP EDNOW ONE Stop: 04/24/18 14:50 Last Admin: 04/24/18 14:58 Dose: 2.5 mg Sodium Chloride (Ns) 1,000 mls @ 0 mls/hr IV EDNOW ONE; Wide Open PRN Reason: Protocol Stop: 04/24/18 14:50 Last Admin: 04/24/18 14:56 Dose: 1,000 mls Sodium Chloride (Ns) 1,000 mls @ 0 mls/hr IV EDNOW ONE; Wide Open PRN Reason: Protocol Stop: 04/24/18 16:27 Last Admin: 04/24/18 16:38 Dose: 1,000 mls Sodium Chloride (Ns) 1,000 mls @ 0 mls/hr IV EDNOW ONE; Wide Open PRN Reason: Protocol Stop: 04/24/18 17:14 Last Admin: 04/24/18 17:37 Dose: 1,000 mls Lorazepam (Ativan Injection) 1 mg IVP EDNOW ONE Stop: 04/24/18 14:51 Last Admin: 04/24/18 14:57 Dose: 1 mg Departure - Departure Disposition: Home, Routine, Self-Care Clinical Impression: Nausea & vomiting Qualifiers: Vomiting type: unspecified Vomiting Intractability: non-intractable Qualified Code(s): R11.2 - Nausea with vomiting, unspecified Condition: Good Instructions: Acute Nausea and Vomiting (ED) Referrals: [facility],. [Clinic] - As per Instructions
[2018-04-24 15:02] LABS: PLATELET COUNT 275 10^3/uL (150-400)
[2018-04-24 18:32] VITALS: BP 167/80
--- NOTE | 2018-04-25 09:18 | ASMTCMCOM ---
CM Note CM Note Notes: Late Entry from 04/24/18: Requested to speak to patient about him wanting to be admitted despite not meeting any admission criteria. Spoke w/patient even though pt did not seem to want to interact, not opening his eyes only responding by nodding his head or answering with one or two word responses. Pt states he is still living out of his VW van. Pt states he has followed up with [facility] and also w/Latanya lam[facility]. Pt states has been taking his medications as prescribed (even though he reported to the ED RN he has been out of his Protonix for 2 wks). This CM to follow-up on Thursday w/[facility] and Latanya [facility] re:pt's outpatient follow-up. Date Signed: 04/25/2018 09:18 AM Electronically Signed By:Mattie Joe RN
--- NOTE | 2018-04-26 14:41 | ASMTCMCOM ---
CM Note CM Note Notes: Followed up w/[facility] and they said patient has not been seen there since December 2016 and has no-showed to the last couple of scheduled appts. This CM to e-mail Latanya Ramsey [facility] w[facility] to see if she has been able to connect with patient in the community. CM available for further assistance if needed. Date Signed: 04/26/2018 02:41 PM Electronically Signed By:Mattie Joe RN
== END 2018-04-24 18:33 | disposition home or self-care (01) ==
DX: R11.2 Nausea with vomiting, unspecified (principal); E86.9 Volume depletion, unspecified
CPT/HCPCS: 96374; J1200; J1630; J2060

== ENCOUNTER 2018-08-29 15:09 | Inpatient (IN) | payer MEDICAID ==
[2018-08-29] MEDS ORDERED: NS 1,000 ML IV ONE ×2 (15:52→17:15)
[2018-08-29] MEDS ORDERED: fentaNYL 100 MCG/2 ML INJ IVP ONE (15:52)
[2018-08-29] MEDS ORDERED: ONDANSETRON 4 MG/2 ML VIAL IVP ONE (15:53)
[2018-08-29 16:14] LABS: PLATELET COUNT 228 10^3/uL (150-400)
[2018-08-29] MEDS ORDERED: KETAMINE 200 MG/20 ML VIAL IVP ONE (17:52)
[2018-08-29] MEDS ORDERED: METOCLOPRAMIDE 10 MG/2 ML VIAL IVP ONE (17:52)
[2018-08-29] MEDS ORDERED: IOPAMIDOL (ISOVUE 370) 100 ML BTL IV ONE (18:38)
--- NOTE | 2018-08-29 20:11 | EDPHY ---
H & P Stated Complaint: N/V/D ABD GENERALIZED PAIN Time Seen by Provider: 08/29/18 15:29 HPI/ROS: CHIEF COMPLAINT: Abdominal pain, nausea, vomiting HISTORY OF PRESENT ILLNESS: 63-year-old male seen in the emergency department and then this hospital on multiple occasions for abdominal vomiting and diarrhea. He has a history of chronic diverticulosis. He states he has a history of diverticulitis. Also has had abdominal pain and vomiting thought to be related to cannabinoid use. Today he reports multiple bouts of vomiting as well as crampy abdominal pain and diarrhea starting 1-2 days ago. No fever, no hematemesis or blood in the diarrhea. States today's pain is different from prior presentations as it is more in the upper abdominal region. Reports he has not been smoking marijuana for several months. Denies urinary complaints, lightheadedness, dizziness. REVIEW OF SYSTEMS: A comprehensive 10 system review of systems was reviewed and is otherwise negative aside from elements mentioned in the history of present illness and medical decision making. PAST MEDICAL HISTORY: Diverticulosis, hepatitis, arthritis, no abdominal surgeries. 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 SOCIAL HISTORY: Homeless, smoker, reports no alcohol use. Reports no recent marijuana use. VITAL SIGNS Reviewed by me. GENERAL: Well-developed, well-nourished, retching in the bed, rolling about the bed in discomfort, reporting significant abdominal pain. HEENT: Atraumatic. Eyes: No icterus, no injection. Mouth: Dry mucous membranes. No erythema or lesions. Neck: supple with no adenopathy. LUNGS: Clear to auscultation bilaterally, no wheezes, rhonchi or rales. CARDIAC: Regular rate and rhythm, no rubs, murmurs or gallops. ABDOMEN: Soft, diffuse tenderness, no guarding or rebound, nondistended. BACK: No CVA tenderness. EXTREMITIES: No trauma. No edema. Range of motion is normal throughout. NEURO: Alert and oriented, grossly nonfocal. SKIN: Warm and dry, no rash. PSYCHIATRIC: Normal mentation, no agitation. - Personal History Current Tetanus Diphtheria and Acellular Pertussis (TDAP): Unsure Tetanus Vaccine Date: < 10 YEARS - Medical/Surgical History Hx Asthma: No Hx Chronic Respiratory Disease: No Hx Diabetes: No Hx Cardiac Disease: No Hx Renal Disease: No Hx Cirrhosis: No Hx Alcoholism: No Hx HIV/AIDS: No Hx Splenectomy or Spleen Trauma: No Other PMH: diverticulitis, Lt ACL SURGERY, tumor right hip;Hepatitis marijuana use, arthritis - Social History Smoking Status: Current some day smoker Constitutional: Initial Vital Signs Temperature (C) 36.5 C 08/29/18 15:18 Heart Rate 100 08/29/18 15:18 Respiratory Rate 18 08/29/18 15:18 Blood Pressure 149/94 H 08/29/18 15:18 O2 Sat (%) 97 08/29/18 15:18 O2 Delivery Mode Nasal Cannula O2 (L/minute) 2 Allergies/Adverse Reactions: Penicillins Allergy (Mild, Verified 08/29/18 15:18) Rash Home Medications: Medication Instructions Recorded NK [No Known Home Meds] 04/24/18 Medical Decision Making - Diagnostics Imaging Results: Imaging Impressions Chest X-Ray 08/29/18 15:53 Impression: Suspect airways disease. No pneumonia. Abdomen CT 08/29/18 18:23 Impression: 1. No source for acute abdominal pain identified. 2. Chronic diverticulosis without evidence of diverticulitis. 3. Stable low lumbar degenerative disease. Results discussed with Dr. Blanco at 7:38 PM. General information for patients regarding this examination can be found at [email or web address]. If you have questions or comments about this report, please contact me at (hospital) or [phone] (cell). ED Course/Re-evaluation: Patient had IV placed. Labs demonstrate a bicarbonate of 15 consistent with dehydration. Otherwise relatively unremarkable labs. Urinalysis has no signs of infection. Patient received 2 L of normal saline, Zofran, fentanyl, Reglan, Benadryl, ketamine, Toradol, with minimal relief of his symptoms. He continues to complain of nausea, and abdominal pain. He received Phenergan. CT scan was ordered. No signs of diverticulitis, although the patient does have diverticulosis. No other acute findings. Patient will be admitted to the hospital for ongoing abdominal pain, nausea, vomiting. Of note he has not had diarrhea while in the emergency department. Patient's course discussed with the hospitalist service, Dr. Brandy Saenz. Admitted to [facility]. Differential Diagnosis: After obtaining the patient's history and performing an examination, differential diagnosis considered included but was not limited to cyclic vomiting syndrome, cannabinoid hyperemesis syndrome, gastritis, pancreatitis, kidney stones, urinary tract infections, gastroenteritis, withdrawal symptoms, intraabdominal processes including appendicitis, pancreatitis, diverticulitis, bowel obstruction and medication side effect. Consult/Admit Bed Type: Dr Saenz, [facility] - Data Points Laboratory Results: Laboratory Results 08/29/18 15:59 08/29/18 15:59 08/29/18 08/29/18 08/29/18 17:25 15:59 15:59 WBC 7.23 10^3/uL 10^3/uL (3.80-9.50) RBC 5.38 10^6/uL 10^6/uL (4.40-6.38) Hgb 17.3 g/dL g/dL (13.7-17.5) Hct 46.6 % % (40.0-51.0) MCV 86.6 fL fL (81.5-99.8) MCH 32.2 pg pg (27.9-34.1) MCHC 37.1 g/dL H g/dL (32.4-36.7) RDW 12.8 % % (11.5-15.2) Plt Count 228 10^3/uL 10^3/uL (150-400) MPV 10.1 fL fL (8.7-11.7) Neut % (Auto) 71.2 % % (39.3-74.2) Lymph % (Auto) 11.3 % L % (15.0-45.0) [place] % (Auto) 16.9 % H % (4.5-13.0) Eos % (Auto) 0.0 % L % (0.6-7.6) Baso % (Auto) 0.3 % % (0.3-1.7) Nucleat RBC Rel Count 0.0 % % (0.0-0.2) Absolute Neuts (auto) 5.15 10^3/uL 10^3/uL (1.70-6.50) Absolute Lymphs (auto) 0.82 10^3/uL L 10^3/uL (1.00-3.00) Absolute Monos (auto) 1.22 10^3/uL H 10^3/uL (0.30-0.80) Absolute Eos (auto) 0.00 10^3/uL L 10^3/uL (0.03-0.40) Absolute Basos (auto) 0.02 10^3/uL 10^3/uL (0.02-0.10) Absolute Nucleated RBC 0.00 10^3/uL 10^3/uL (0-0.01) Immature Gran % 0.3 % % (0.0-1.1) Immature Gran # 0.02 10^3/uL 10^3/uL (0.00-0.10) Sodium 136 mEq/L mEq/L (135-145) Potassium 3.9 mEq/L mEq/L (3.5-5.2) Chloride 106 mEq/L mEq/L (97-110) Carbon Dioxide 15 mEq/l L mEq/l (22-31) Anion Gap 15 mEq/L H mEq/L (6-14) BUN 21 mg/dL mg/dL (7-23) Creatinine 1.2 mg/dL mg/dL (0.7-1.3) Estimated GFR > 60 Glucose 161 mg/dL H mg/dL (70-100) Calcium 10.6 mg/dL H mg/dL (8.5-10.4) Total Bilirubin 0.7 mg/dL mg/dL (0.1-1.4) Conjugated Bilirubin 0.4 mg/dL mg/dL (0.0-0.5) Unconjugated Bilirubin 0.3 mg/dL mg/dL (0.0-1.1) AST 25 IU/L IU/L (17-59) ALT 31 IU/L IU/L (21-72) Alkaline Phosphatase 96 IU/L IU/L (38-126) Total Protein 7.5 g/dL g/dL (6.3-8.2) Albumin 4.6 g/dL g/dL (3.5-5.0) Lipase 153 IU/L IU/L (23-300) Urine Color YELLOW Urine Appearance CLEAR Urine pH 7.0 (5.0-7.5) Ur Specific [place] 1.015 (1.002-1.030) Urine Protein NEGATIVE (NEGATIVE) Urine Ketones 2+ H (NEGATIVE) Urine Blood NEGATIVE (NEGATIVE) Urine Nitrate NEGATIVE (NEGATIVE) Urine Bilirubin NEGATIVE (NEGATIVE) Urine Urobilinogen NEGATIVE EU EU (0.2-1.0) Ur Leukocyte Esterase NEGATIVE (NEGATIVE) Urine RBC 1-3 /hpf /hpf (0-3) Urine WBC 0-1 /hpf /hpf (0-3) Ur Epithelial Cells NONE SEEN /lpf /lpf (NONE-1+) Amorphous Sediment PRESENT /hpf /hpf (NONE-1+) Urine Mucus TRACE /lpf /lpf (NONE-1+) Urine Glucose 1+ H (NEGATIVE) Medications Given: Discontinued Medications Diphenhydramine HCl (Benadryl Injection) 25 mg IVP EDNOW ONE Stop: 08/29/18 17:53 Last Admin: 08/29/18 18:01 Dose: 25 mg Fentanyl (Sublimaze) 75 mcg IVP EDNOW ONE Stop: 08/29/18 15:53 Last Admin: 08/29/18 16:04 Dose: 75 mcg Sodium Chloride (Ns) 1,000 mls @ 0 mls/hr IV EDNOW ONE; Wide Open PRN Reason: Protocol Stop: 08/29/18 15:53 Last Admin: 08/29/18 16:01 Dose: 1,000 mls Sodium Chloride (Ns) 1,000 mls @ 0 mls/hr IV EDNOW ONE; Wide Open PRN Reason: Protocol Stop: 08/29/18 17:16 Last Admin: 08/29/18 17:16 Dose: 1,000 mls Ketamine HCl (Ketamine) 15 mg IVP EDNOW ONE Stop: 08/29/18 17:53 Last Admin: 08/29/18 18:03 Dose: 15 mg Metoclopramide HCl (Reglan Injection) 10 mg IVP EDNOW ONE Stop: 08/29/18 17:53 Last Admin: 08/29/18 18:01 Dose: 10 mg Ondansetron HCl (Zofran) 4 mg IVP EDNOW ONE Stop: 08/29/18 15:54 Last Admin: 08/29/18 16:04 Dose: 4 mg Promethazine HCl (Phenergan) 12.5 mg IVP ONCE ONE Stop: 08/29/18 20:29 Last Admin: 08/29/18 20:29 Dose: 12.5 mg Departure - Departure Disposition: [facility] Clinical Impression: Abdominal pain Qualifiers: Abdominal location: upper abdomen, unspecified Qualified Code(s): R10.10 - Upper abdominal pain, unspecified Nausea & vomiting Qualifiers: Vomiting type: unspecified Vomiting Intractability: intractable Qualified Code( s): R11.2 - Nausea with vomiting, unspecified Condition: Fair
[2018-08-29] MEDS ORDERED: PROMETHAZINE HCL 25 MG/ML INJ ONE (20:26)
[2018-08-29] MEDS ORDERED: PROMETHAZINE HCL 25 MG/ML INJ IVP ONE (20:28)
[2018-08-29] MEDS ORDERED: traMADol 50 MG TAB PO PRN (21:00)
[2018-08-29] MEDS ORDERED: PROMETHAZINE HCL 25 MG/ML INJ IVP PRN (21:00)
--- NOTE | 2018-08-29 21:32 | GHP ---
DATE OF ADMISSION: 08/29/2018 CHIEF COMPLAINT: Nausea, vomiting, diarrhea. HISTORY: The patient is a 63-year-old male, who has a previous history of cyclic vomiting which was felt to be probable cannabis hyperemesis. It was recommended that he discontinue marijuana products. He has not had any marijuana since his hospital admission last January, and his chronic nausea, vomitin g, and abdominal pain have resolved. He now represents to the hospital with acute onset of epigastri c pain with nausea, vomiting, and diarrhea that started 3 days ago. He does have a sick contact, and a friend he has been spending some time with has had a GI illness. He has had epigastric pain that does not radiate with associated nausea and vomiting. Denies any fever. He has had a CT scan in the emergency room that was negative. He has now been under observation in the emergency room for 5 shivam rs with failure to improve so he is being admitted to the hospital. PAST MEDICAL HISTORY: 1. Hypertension. 2. 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 MEDICATIONS: Please see computerized record for full detailed list. ALLERGIES: Penicillin. SOCIAL HISTORY: No smoking. No alcohol. He lives in a mobile home. REVIEW OF SYSTEMS: Complete review of systems obtained. Review of systems negative regarding consti tutional, HEENT, GI, pulmonary, cardiovascular, , hematology, musculoskeletal, endocrine, psych, ex cept for positives and negatives as in HPI. FAMILY HISTORY: Reviewed, noncontributory to presenting complaint. PHYSICAL EXAMINATION: GENERAL: This is a well-developed well-nourished male, lying in the stretcher in the emergency room. Curled in a ball looking miserable, very uncomfortable, having a hard time g iving a history due to the dramatic pain he is currently in. VITAL SIGNS: Temperature is 36.5, pulse 83, blood pressure 158/97, saturating 97% on room air. HEENT: Normal conjunctivae. Pupils reactiv e to light. ENT: Normal ears and nose. Hearing intact. Normal lips and teeth. Oropharynx moist. NECK: Trachea midline. No thyromegaly. CHEST: Normal respiratory effort. LUNGS: Clear to auscul tation bilaterally. CARDIOVASCULAR: Regular rhythm. No murmur. No lower extremity edema. ABDOMEN : Soft, nontender. No hepatosplenomegaly. SKIN: Warm, dry, intact. No rash. MUSCULOSKELETAL: N o cyanosis or clubbing. Strength 5/5 upper and lower extremities. NEUROLOGIC: Cranial nerves intac t, normal sensation to light touch. PSYCH: Alert and oriented x3. Normal affect. Normal judgment and insight. Normal memory. LABS: White count 7.23, hematocrit 46.6, platelets 228. Sodium 136, potassium 3.9, chloride 106, bi carb 15, BUN 21, creatinine 1.2, glucose 161, calcium 7.6. LFTs are negative. Urinalysis is negativ e. IMAGING PROCEDURE: Chest x-ray is negative. TEST DATA: EKG reviewed by me. My personal interpretation is normal sinus rhythm with no ST or T-wa ve changes. CT scan of the abdomen and pelvis shows diverticulosis but otherwise negative. This case was discussed with Dr. Nelida Blanco, the emergency room physician, regarding ER course. ASSESSMENT/PLAN: 1. Nausea, vomiting, and diarrhea. I suspect this is viral. His previous problems with cyclic vomi ting have resolved with the discontinuation of marijuana products. Will check a GI PCR. Will continu e supportive care. 2. Hypertension. I think he may have been on medications in the past but is not currently. Will fo llow blood pressure closely. 3. Epigastric pain. LFTs are negative. I will put him on IV Pepcid. If his epigastric pain persis ts, could consider EGD but my clinical suspicion is more leaning toward viral infection. CODE STATUS: Full. ADMISSION STATUS: Will admit to observation. Will re-evaluate tomorrow regarding ongoing need for h ospitalization. DVT PROPHYLAXIS: He is moderate risk. Will place on subcu Lovenox. /[id number]/MODL
[2018-08-29] MEDS: HALOPERIDOL LACT 5 MG/ML INJ IVP PRN (21:54)
[2018-08-29] MEDS: KETOROLAC 30 MG/1 ML SDV IVP PRN (21:54)
[2018-08-29] MEDS: FAMOTIDINE 20 MG/NACL 50 ML IV SCH (21:55)
[2018-08-29] MEDS: NS 1,000 ML IV SCH (21:55)
[2018-08-30] MEDS: ONDANSETRON 4 MG/2 ML VIAL IVP PRN ×3 (01:17→20:59)
[2018-08-30] MEDS: HALOPERIDOL LACT 5 MG/ML INJ IVP PRN (05:17)
[2018-08-30] MEDS: KETOROLAC 30 MG/1 ML SDV IVP PRN ×3 (05:17→20:59)
--- NOTE | 2018-08-30 09:08 | ASMTCMCOM ---
CM Note CM Note Notes: Pt is a 63 y/o man admitted for nausea, vomiting and diarrhea. Pt has a hx of cyclic vomiting probable cannabis hyperemesis. Pt lives in a mobile home. Pt will most likely d/c independent when medically stable. No therapies ordered at this time. CM available for changes. Plan: Independent Date Signed: 08/30/2018 09:07 AM Electronically Signed By:MO Yang
[2018-08-30] MEDS: FAMOTIDINE 20 MG/NACL 50 ML IV SCH ×2 (10:11→21:01)
[2018-08-30] MEDS: ENOXAPARIN 40 MG/0.4 ML SYR SC SCH (10:11)
--- NOTE | 2018-08-30 10:55 | HOSPPROG ---
Hospitalist Progress Note Assessment/Plan: Celso Kenyon is a 63 y/o male who presented to the ER with epigastric pain along w nausea, vomiting and diarrhea. First encounter, chart reviewed. *Viral Gastroenteritis -hx of cyclic vomiting but this resolved w stopping Cannibis products -tolerating clear liquids -trial of BRAT diet *n, v and diarrhea -has none further *HTN -bp stable *epigastric pain -better *hiccups -trial of baclofen *plan: will see if he can eat and drink. Possibly dc later today Subjective: Celso said he doesn't like to be woken up in the morning. Objective: Vital Signs Temp Pulse Resp BP Pulse Ox 36.5 C 65 18 117/80 94 08/30/18 07:44 08/30/18 07:44 08/30/18 07:44 08/30/18 07:44 08/30/18 10:16 Laboratory Results 08/30/18 06:33 08/29/18 08/30/18 08/31/18 05:59 05:59 05:59 Intake Total 2060 Output Total 1350 Balance 710 - Physical Exam Constitutional: no apparent distress, uncomfortable Eyes: PERRL Ears, Nose, Mouth, Throat: hearing normal Cardiovascular: regular rate and rhythym Respiratory: no respiratory distress Gastrointestinal: normoactive bowel sounds, soft, non-tender abdomen Skin: warm Neurologic: AAOx3 Psychiatric: interacting appropriately ICD10 Worksheet Patient Problems: Problems Problem Status Onset Abdominal pain Acute Nausea & vomiting Acute Abdominal pain Acute Abdominal pain Acute Chronic abdominal pain Acute Cyclic vomiting syndrome Acute Dehydration Acute Intractable vomiting with nausea Acute Nausea Acute Sigmoid diverticulitis Acute Volume depletion Acute Vomiting Acute
[2018-08-30] MEDS ORDERED: BACLOFEN 10 MG TAB PO PRN (11:21)
[2018-08-30] MEDS: NS 1,000 ML IV SCH (17:04)
--- NOTE | 2018-08-30 20:46 | CPEKG ---
Test Reason : OPEN Blood Pressure : / mmHG Vent. Rate : 077 BPM Atrial Rate : 078 BPM P-R Int : 153 ms QRS Dur : 086 ms QT Int : 369 ms P-R-T Axes : 071 -78 058 degrees QTc Int : 418 ms Sinus rhythm Left anterior fascicular block Confirmed by Nelida Blanco ([id number]) on 08/30/2018 8:46:16 PM Referred By: Confirmed By:Nelida Blanco
[2018-08-31] MEDS: NS 1,000 ML IV SCH ×2 (03:12→15:47)
[2018-08-31] MEDS: KETOROLAC 30 MG/1 ML SDV IVP PRN (06:01)
--- NOTE | 2018-08-31 10:07 | PDMN ---
Medical Necessity Medical necessity: Pt meets IP criteria as of 08/30/2018 per and MCG M-170 ( gastroenteritis); est los > 2 mn for ongoing tx and management of viral gastroenteritis with persistent vomiting.
[2018-08-31] MEDS: ENOXAPARIN 40 MG/0.4 ML SYR SC SCH (10:20)
--- NOTE | 2018-08-31 10:20 | HOSPPROG ---
Hospitalist Progress Note Assessment/Plan: Celso Kenyon is a 63 y/o male who presented to the ER with epigastric pain along w nausea, vomiting and diarrhea. *n, v and diarrhea -had some vomiting last night -he has no diarrhea since being admitted -will get an abdominal x ray to further evaluate, patient feels constipated -had a low grade temp this morning *Viral Gastroenteritis -hx of cyclic vomiting but this resolved w stopping Cannibis products -trial of BRAT diet *HTN -bp stable *epigastric pain -better *hiccups -none further *plan:get abdominal x ray, trial of Dulcolax Subjective: Celso is c/o feeling constipated, says diarrhea stopped days ago. Objective: Vital Signs Temp Pulse Resp BP Pulse Ox 37.5 C 87 16 142/96 H 92 08/31/18 07:21 08/31/18 07:21 08/31/18 07:21 08/31/18 07:21 08/31/18 07:21 08/30/18 08/31/18 09/01/18 05:59 05:59 05:59 Intake Total 1700 Output Total 600 Balance 1100 - Physical Exam Constitutional: no apparent distress, uncomfortable Eyes: PERRL Ears, Nose, Mouth, Throat: hearing normal Cardiovascular: regular rate and rhythym Respiratory: no respiratory distress Gastrointestinal: normoactive bowel sounds Skin: warm Musculoskeletal: generalized weakness Neurologic: AAOx3 Psychiatric: interacting appropriately, flat affect ICD10 Worksheet Patient Problems: Problems Problem Status Onset Abdominal pain Acute Nausea & vomiting Acute Abdominal pain Acute Abdominal pain Acute Chronic abdominal pain Acute Cyclic vomiting syndrome Acute Dehydration Acute Intractable vomiting with nausea Acute Nausea Acute Sigmoid diverticulitis Acute Volume depletion Acute Vomiting Acute
[2018-08-31] MEDS: FAMOTIDINE 20 MG/NACL 50 ML IV SCH ×2 (10:21→22:05)
[2018-08-31] MEDS: ACETAMINOPHEN 325 MG TAB PO PRN ×3 (10:22→23:38)
[2018-08-31] MEDS ORDERED: BISACODYL 10 MG SUPP PR ONE (11:15)
[2018-08-31] MEDS: ONDANSETRON 4 MG/2 ML VIAL IVP PRN (23:38)
[2018-09-01] MEDS ORDERED: POTASSIUM CL 20 MEQ PKT PO ONE (08:03)
[2018-09-01] MEDS: ENOXAPARIN 40 MG/0.4 ML SYR SC SCH (08:55)
[2018-09-01] MEDS: FAMOTIDINE 20 MG/NACL 50 ML IV SCH (08:55)
--- NOTE | 2018-09-01 13:10 | HOSPPROG ---
Hospitalist Progress Note Assessment/Plan: Celso Kenyon is a 63 y/o male who presented to the ER with epigastric pain along w nausea, vomiting and diarrhea. *n, v and diarrhea -he has no diarrhea since being admitted -abdominal x ray is reassuring *Viral Gastroenteritis-PCR shows no infectious etiology -hx of cyclic vomiting but this resolved w stopping Cannibis products -eating well *possible upper resp viral infection - Celso is concerned that he may have pna, has a few coarse lung sounds -will get a chest x ray and a respiratory PCR *HTN -bp stable *hypokalemia -dose of K ordered *epigastric pain -better *hiccups -none further *plan: concern Celso is malingering. For the past 3 days while caring for him, he has a new symptom daily and says he can't return home. He lives in a place where he has a bed, and really doesn't want to return there. Asked CM to talk with him to help evaluate the situation. Subjective: Celso said he is worried he has pneumonia and feels he can't be discharged. Objective: Vital Signs Temp Pulse Resp BP Pulse Ox 37.0 C 92 20 137/104 H 93 09/01/18 11:57 09/01/18 11:57 09/01/18 11:57 09/01/18 11:57 09/01/18 11:57 Microbiology 08/31/18 13:22 Gastrointestinal Tract Panel (PCR) - Final Stool No Organism Detected By Pcr Laboratory Results 09/01/18 04:29 08/31/18 09/01/18 09/02/18 05:59 05:59 05:59 Intake Total 1700 Output Total 600 950 225 Balance 1100 -950 -225 - Physical Exam Constitutional: no apparent distress, appears nourished, not in pain Eyes: PERRL Ears, Nose, Mouth, Throat: hearing normal Cardiovascular: regular rate and rhythym Respiratory: no respiratory distress, rhonchi (few at the bases) Gastrointestinal: normoactive bowel sounds Skin: warm Musculoskeletal: full muscle strength Neurologic: AAOx3 Psychiatric: interacting appropriately ICD10 Worksheet Patient Problems: Problems Problem Status Onset Abdominal pain Acute Nausea & vomiting Acute Abdominal pain Acute Abdominal pain Acute Chronic abdominal pain Acute Cyclic vomiting syndrome Acute Dehydration Acute Intractable vomiting with nausea Acute Nausea Acute Sigmoid diverticulitis Acute Volume depletion Acute Vomiting Acute
[2018-09-01] MEDS: ONDANSETRON 4 MG/2 ML VIAL IVP PRN (13:11)
[2018-09-01] MEDS: oxyCODONE IR 5 MG TAB PO PRN (13:11)
[2018-09-01] MEDS: OSELTAMIVIR PHOSPHATE 75 MG CAP PO SCH (20:56)
[2018-09-01] MEDS: FAMOTIDINE 20 MG TAB PO SCH (20:56)
[2018-09-02] MEDS: oxyCODONE IR 5 MG TAB PO PRN (06:24)
[2018-09-02] MEDS: ONDANSETRON 4 MG/2 ML VIAL IVP PRN ×2 (06:24→11:52)
[2018-09-02 07:41] VITALS: BP 111/90
[2018-09-02] MEDS: FAMOTIDINE 20 MG TAB PO SCH (08:36)
[2018-09-02] MEDS: ENOXAPARIN 40 MG/0.4 ML SYR SC SCH ×2 (08:37→08:38)
[2018-09-02] MEDS: OSELTAMIVIR PHOSPHATE 75 MG CAP PO SCH (08:37)
--- NOTE | 2018-09-02 12:31 | HOSPPROG ---
Hospitalist Progress Note Assessment/Plan: # influenza A - cont tamiflu # gastroenteritis - is still vomiting; GI PCR negative # htn - BP ok # hypoK - repleted # dispo - unable to completely assess patient as he would not interact or allow this. there was previous concern that he was malingering, but i really can't assess. will ask case management for assistance. he has seen ramses nolasco before , this may be reasonable. Subjective: very uncomfortable interaction; he became frustrated with questions regarding his physical state - he subsequently became quite sarcastic. Objective: Vital Signs Temp Pulse Resp BP Pulse Ox 36.2 C 79 16 111/90 H 90 L 09/02/18 07:38 09/02/18 07:38 09/02/18 07:38 09/02/18 07:38 09/02/18 07:38 Microbiology 09/01/18 15:30 Respiratory Panel (PCR) - Final Nasal, Sinus - Anaerobic Tube/Swab Influenza Virus Type A 2009 H1 Laboratory Results 09/01/18 04:29 09/01/18 09/02/18 09/03/18 05:59 05:59 05:59 Output Total 950 400 200 Balance -950 -400 -200 chart reviewed Ramses Nolasco's note reviewed - Time Spent With Patient Time Spent with Patient: greater than 25 minutes Time Spent with Patient: Greater than 25 minutes spent on this patients care, greater than 50% of time spent counseling, educating, and coordinating care regarding the above mentioned plan. - Physical Exam Constitutional: other (laying in bed, appears comfortable) ICD10 Worksheet Patient Problems: Problems Problem Status Onset Abdominal pain Acute Nausea & vomiting Acute Abdominal pain Acute Abdominal pain Acute Chronic abdominal pain Acute Cyclic vomiting syndrome Acute Dehydration Acute Intractable vomiting with nausea Acute Nausea Acute Sigmoid diverticulitis Acute Volume depletion Acute Vomiting Acute
--- NOTE | 2018-09-02 13:16 | GDS ---
DISPOSITION: Patient left [facility]. ALL DIAGNOSES: 1. Influenza A. 2. Gastroenteritis. 3. Hypertension. 4. Hypokalemia. HOSPITAL COURSE: 63-year-old man who was admitted initially with a gastroenteritis. He was initially acidotic consistent with dehydration. This resolved with IV fluids. He had slightly low potassium, which was repleted. He was concerned that he was developing pneumonia, thus chest x-ray, as well as respiratory viral PCR were checked. This was notable for having influenza A on his PCR, chest x-ray consistent with bronchitis. He was started on Tamiflu. I met him for the first time on the day of his [facility] departure. I was attempting to attain additional history from him when he became quite rude and condescending expressing frustration over having to answer questions. His nurse was present for the entire interaction and had a similar encounter with him earlier in the day. I told him that I am trying to help him and the questions I was asking were so that I could better take care of him. He refused to interact with me in any meaningful way, so I had to terminate the interview. After a left, I found out that he wanted to leave [facility]. I wrote my concerns on his [facility] paperwork including my concern that he could become dehydrated and , but he left abruptly and I did not have another chance to discuss further with him. He has capacity to make this decision. BILLING: I spent more than 30 minutes on the day of discharge coordinating care. /[id number]/MODL MTDD
== END 2018-09-02 12:49 | disposition left against medical advice (07) | DRG 249 ==
LOC: F3E 21:11 → OBSVTOIN 08-30 15:30
PROVIDERS: ADMIT Internal Medicine; ATTEND Internal Medicine
DX: A08.4 Viral intestinal infection, unspecified (principal); E86.0 Dehydration; J10.1 Influenza due to other identified influenza virus with other respiratory manifestations; J40 Bronchitis, not specified as acute or chronic; I10 Essential (primary) hypertension; E87.6 Hypokalemia; K57.30 Diverticulosis of large intestine without perforation or abscess without bleeding; Z72.0 Tobacco use; Z88.0 Allergy status to penicillin
CPT/HCPCS: 96374; G0378; J1200; J1630; J1650; J1885; J2405; J2550; J2765; J3010; Q9967

== ENCOUNTER 2018-11-16 10:28 | Emergency (ER) | payer MEDICAID ==
[2018-11-16] MEDS ORDERED: NS 1,000 ML IV ONE ×2 (11:18→11:58)
[2018-11-16] MEDS ORDERED: FAMOTIDINE 20 MG/2 ML SDV IVP ONE (11:43)
[2018-11-16] MEDS ORDERED: PROMETHAZINE HCL 12.5 MG SUPPR PR ONE (11:43)
[2018-11-16] MEDS ORDERED: fentaNYL 100 MCG/2 ML INJ IVP ONE (11:43)
[2018-11-16] MEDS ORDERED: PROMETHAZINE HCL 25 MG/ML INJ ONE (11:47)
[2018-11-16] MEDS ORDERED: IOPAMIDOL (ISOVUE-300) 100 ML BTL ONE (12:02)
[2018-11-16 12:03] LABS: PLATELET COUNT 233 10^3/uL (150-400)
[2018-11-16] MEDS ORDERED: HALOPERIDOL LACT 5 MG/ML INJ IVP ONE (12:47)
[2018-11-16] MEDS ORDERED: HALOPERIDOL LACT 5 MG/ML INJ ONE (12:48)
--- NOTE | 2018-11-16 13:20 | EDPHY ---
General Time Seen by Provider: 11/16/18 11:33 Narrative: CLINICAL IMPRESSION: Nausea, vomiting, abdominal pain ASSESSMENT/PLAN: 63-year-old male with a history of chronic diverticulosis as well as a reported history of hyperemesis cannabinoid syndrome presents to the emergency department with 2 days of nausea, vomiting and generalized abdominal pain. Patient reports no associated fever, chills, UTI symptoms, flank pain, diarrhea or bloody stools. He did not find relief with taking promethazine at home. Labs show an elevated bicarb consistent with dehydration. Normal renal function. Mild leukocytosis with generalized abdominal discomfort and no focal peritoneal findings. EKG reviewed with Dr. Zamora, sinus tachycardia, no acute ST/T wave changes seen. No c/o CP, SOB. CT scan read by Radiology showing diffuse diverticulosis with no evidence of diverticulitis, abscess, free air, or obstruction. Patient ultimately received IV fluids, Zofran, promethazine, fentanyl, and eventually Haldol. He was observed for nearly 5 hr in the ED. On reassessments he was sleeping comfortably. He was able to get up and use the restroom. He was able to tolerate fluids. He was given a prescription for promethazine suppositories as he does not feel he could keep oral promethazine down. I do not feel this patient requires admission at this time. He will be discharged home with PCP follow-up. Warning signs return to ED sooner alignment discharge. DIFFERENTIAL DX: Abdominal pain includes but not limited to acute appendicitis, diverticulitis, cholecystitis, pancreatitis, SBO, gastroenteritis, hyperemesis cannabinoid syndrome, constipation ED PROCEDURES: See lab and/or imaging results below ED COURSE: Seen and assessed by myself. Calm, cooperative, abdomen soft but without focal peritoneal findings. Plan for IV, labs, fluid bolus, probable CT scan given history of diverticulitis with left lower quadrant discomfort today. CT results discussed with Dr. Celestin. Patient has chronic diverticulosis with no evidence of diverticulitis, free air, productive process or abscess today. Patient's nausea and pain persistent despite IV Zofran and promethazine. Haldol initiated. Upon review of past chart notes, patient has required admission due to intractable nausea and vomiting despite IV antiemetics , Toradol, ketamine, Reglan, Benadryl, and promethazine. 1:20 P.M.: Patient reassessed, sleeping comfortably, appears in no distress, heart rate 92, vital signs stable. CHIEF COMPLAINT: Abdominal pain, Nausea and vomiting HPI: 63-year-old male with a history of diverticulosis presents to the emergency department with 2 days of abdominal pain, nausea and vomiting. Patient reports he does not believe he has hyperemesis cannabinoid syndrome and has not smoked marijuana for quite some time. He reports upper abdominal pain and burn. No history of pancreatitis. No chest pain or shortness of breath. He tried promethazine at home without relief in his symptoms. No reported fever or chills. No travel outside the [place] No recent antibiotics or new medications. He has not seen anyone for his discomfort. He has never had abdominal surgery. His last colonoscopy was approximately 3-5 years ago. PAST MEDICAL HISTORY: Hepatitis, arthritis, diverticulosis See nurse/triage notes for additional history if applicable Pertinent Past Surgical History: Orthopedic surgery, removal of lipoma from right hip Family History: None reported Social History: Denies current marijuana use, denies cigarette smoking REVIEW OF SYSTEMS: All other systems negative Constitutional: No fever, no chills, positive for appetite change. Cardiovascular: No chest pain, no palpitations. Respiratory: No cough, no shortness of breath. Gastrointestinal: Positive for abdominal pain, nausea and vomiting, diarrhea. Genitourinary: No hematuria, dysuria, flank pain, pelvic pain Musculoskeletal: No back pain, joint swelling, joint pain, myalgias. Skin: No rashes, color change. Neurological: No headache, dizziness, positive for weakness. PHYSICAL EXAM: General Appearance: Alert, oriented, appropriate, cooperative, NAD, non-toxic appearing, tachycardic, hypertensive no hypoxia. HEENT: Dry mucous membranes, Oropharynx clear is no erythema or exudates, no tonsillar hypertrophy or asymmetry. Dentition without abnormality.] Respiratory: There are no retractions, lungs are clear to auscultation. Cardiac: Regular rate and rhythm, no murmurs or gallops. Gastrointestinal: Abdomen is soft, generalized epigastric abdominal discomfort, left lower quadrant abdominal discomfort, bowel sounds normal, no masses/hernia , no rigidity, guarding or focal peritoneal findings. Neurological: [ Alert and oriented x 3 Skin: Warm, dry, no rashes, no nodules on palpation. Musculoskeletal: Extremities are symmetrical, full range of motion, no tenderness, deformity, swelling, or erythema no asymmetric calf swelling pain or erythema.. Psychiatric: Patient is oriented X 3, there is no agitation. MEDICAL DECISION MAKING: Patient was seen independently. Secondary supervising physician at time of evaluation was Dr. Zamora . Diagnosis: Nausea, vomiting, generalized abdominal pain . New, requires workup Summary: See Assessment and Plan for summary of ED visit Clinical lab tests: ordered / reviewed. Independent visualization of images, tracing, or specimens: Yes. Decision to obtain medical records or history from someone other than the patient: No Review / Summarize previous medical records: Reviewed past chart notes Discussed patient with another provider: Radiology Patient Progress: Improved, stable for discharge. - History Smoking Status: Former smoker - Objective Vital Signs: Initial Vital Signs Temperature (C) 36.8 C 11/16/18 10:32 Heart Rate 121 H 11/16/18 10:32 Respiratory Rate 24 H 11/16/18 10:32 Blood Pressure 140/110 H 11/16/18 10:32 O2 Sat (%) 98 11/16/18 10:32 O2 Delivery Mode Room Air Allergies/Adverse Reactions: Penicillins Allergy (Mild, Verified 11/16/18 10:32) Rash Home Medications: Medication Instructions Recorded Promethazine HCl [Phenergan 12.5mg 12.5 mg AR Q8HRS PRN #8 suppr 11/16/18 supp (*)] Laboratory Results: Laboratory Results 11/16/18 11:55 11/16/18 14:05 Medications Given: Discontinued Medications Famotidine (Pepcid) 20 mg IVP EDNOW ONE Stop: 11/16/18 11:44 Last Admin: 11/16/18 11:50 Dose: 20 mg Fentanyl (Sublimaze) 50 mcg IVP EDNOW ONE Stop: 11/16/18 11:44 Last Admin: 11/16/18 11:53 Dose: 50 mcg Haloperidol Lactate (Haldol Injection) 2.5 mg IVP EDNOW ONE Stop: 11/16/18 12:48 Last Admin: 11/16/18 12:56 Dose: 2.5 mg Sodium Chloride (Ns) 1,000 mls @ 0 mls/hr IV ONCE ONE PRN Reason: Wide Open Stop: 11/16/18 11:19 Last Admin: 11/16/18 11:19 Dose: 1,000 mls Sodium Chloride (Ns) 1,000 mls @ 0 mls/hr IV EDNOW ONE; Wide Open PRN Reason: Protocol Stop: 11/16/18 11:59 Last Admin: 11/16/18 12:42 Dose: 1,000 mls Promethazine HCl (Phenergan Rectal) 12.5 mg AR EDNOW ONE Stop: 11/16/18 11:44 Last Admin: 11/16/18 11:55 Dose: 12.5 mg Departure - Departure Disposition: Home, Routine, Self-Care Clinical Impression: Abdominal pain Nausea & vomiting Qualifiers: Vomiting type: unspecified Vomiting Intractability: non-intractable Qualified Code(s): R11.2 - Nausea with vomiting, unspecified Condition: Good Instructions: Acute Nausea and Vomiting (ED) Additional Instructions: DISCHARGE INSTRUCTIONS FROM YOUR DOCTOR Thank you for visiting our emergency department today. You were treated by a physician baking assistant today and your case was reviewed with our ED Attending physician. Please keep in mind that discharge from the emergency department does not mean that there is nothing wrong - it simply means that we have not identified an emergency condition that requires further evaluation or treatment in the hospital. You should always plan to follow up with primary care for re- evaluation of your condition in the next 2-3 days. If you have been referred to a specialist, please call as soon as possible (today or tomorrow) to schedule your follow up appointment at the appropriate time. DIAGNOSTIC EVALUATION IN THE EMERGENCY DEPARTMENT INCLUDED LAB WORK, 2 BAGS IV FLUID, PAIN MEDICATION, NAUSEA MEDICATION, AND CT SCAN. YOU DO NOT HAVE EVIDENCE OF DIVERTICULITIS. YOU DO HAVE DIVERTICULOSIS. NO EVIDENCE OF ABSCESS. LABS INDICATED DEHYDRATION BUT IMPROVED AFTER IV FLUIDS. HE RECEIVED PAIN MEDICATION AND NAUSEA MEDICINE WITH OBVIOUS IMPROVEMENT IN SYMPTOMS. PLEASE FOLLOW-UP WITH A PRIMARY CARE DOCTOR. PLEASE AVOID SMOKING MARIJUANA. USE THE NAUSEA MEDICATION YOU HAVE AT HOME IF NEEDED. RETURN TO THE EMERGENCY DEPARTMENT FOR WORSENING SYMPTOMS, PERSISTENT VOMITING, WORSENING ABDOMINAL PAIN , FEVER OR CHILLS, OR ANY OTHER CONCERN. People present with illnesses and injuries in different ways, and it is always possible that we have missed something. You may always return for re-evaluation if symptoms worsen or if they are not improving or if you develop new/different symptoms. Again, thank you for choosing our emergency department. We hope that you feel better. Referrals: [facility],. [Primary Care Provider] - 1-2 days without fail Prescriptions: Promethazine HCl [Phenergan 12.5mg supp (*)] 12.5 mg AR Q8HRS PRN #8 suppr PRN Reason: Nausea/Vomiting, Can'T Take Po
--- NOTE | 2018-11-16 15:19 | CPEKG ---
Test Reason : OPEN Blood Pressure : / mmHG Vent. Rate : 101 BPM Atrial Rate : 101 BPM P-R Int : 138 ms QRS Dur : 079 ms QT Int : 333 ms P-R-T Axes : 047 -76 -04 degrees QTc Int : 432 ms Sinus tachycardia Left anterior fascicular block Borderline T abnormalities, inferior leads Confirmed by Celso Zamora ([id number]) on 11/16/2018 3:19:00 PM Referred By: Celso Zamora Confirmed By:Celso Zamora
[2018-11-16 16:03] VITALS: BP 154/103
== END 2018-11-16 16:28 | disposition home or self-care (01) ==
DX: R11.2 Nausea with vomiting, unspecified (principal); R10.84 Generalized abdominal pain
CPT/HCPCS: 96374; J1630; J2550; J3010; Q9967